=== PATIENT | female | born 1985 | race Caucasian/White ===

== ENCOUNTER 2019-11-03 18:25 | Inpatient (IN) | payer OTHER ==
--- NOTE | 2019-11-03 18:30 | PDOC ---
Rapid Medical Evaluation Time Seen by Provider: 11/03/19 18:27 Medical Evaluation: 11/03/19 18:28 34 y/o F w/PMH of asthma recent exacerbation afebrile 2 duo nebs and decadron in ambulance in ambulance, symptoms increase with cigarette smoking PE: NAD ORDERS: CXR Discharge Disposition - Diagnosis Asthma exacerbation - Discharge Dispostion Condition at time of disposition: Stable - Referrals - Patient Instructions - Post Discharge Activity
[2019-11-03 18:32] VITALS: BMI 29.5
[2019-11-03] MEDS ORDERED: MAGNESIUM SULF 50% (8.12 MEQ/2 ML-1 GM VIAL) IVPB ONE (18:43)
[2019-11-03] MEDS ORDERED: ALBUTEROL SO4 2.5/IPRATROPIUM 0.5 INH SOL 3 ML VIAL.NEB. NEB ONE ×3 (18:43→19:07)
[2019-11-03] MEDS ORDERED: LACTATED RINGERS SOLUTION 1000 ML INFUS.BAG IV ONE (18:53)
[2019-11-03] MEDS ORDERED: ALBUTEROL SO4 0.083% IH SOL 2.5 MG/3 ML VIAL.NEB. NEB ONE ×2 (18:55→19:06)
--- NOTE | 2019-11-03 18:59 | PDOC ---
History of Present Illness - General Chief Complaint: Wheezing Stated Complaint: ASTHMA Time Seen by Provider: 11/03/19 18:27 - History of Present Illness Initial Comments: HPI: 11/03/19 18:58 34 yo F PMH asthma (never intubated, 1 or less exacerbations per year, normally intermittent use of inhaler), smoker (5 cigarettes daily X 5 years), presenting with SOB and wheezing. Received Duoneb X2 and Decadron 10 by EMS. She states t hat she has been feeling worsening SOB over the past 4 days and has been taking her albuterol inhaler every 2 hours without relief. Endorses sensation of palpitations, which she attributes to using her inhaler. States that this is the worst exacerbation she can remember. Further complains of long standing pain behind her knees associated with weakness, L>R, exacerbated by walking uphill, which has been worsening for months. She is on Depo shots (started 3 months ago), has never been . Denies CP, JAMES, N/V, generalized weakness, fevers/chills, constipation/diarrhea, urinary changes. PCP: Dr. Crockett, [address], last saw here 3 years ago ROS: GENERAL/CONSTITUTIONAL: denies fever, chills, diaphoresis, generalized weakness HEAD, EYES, EARS, NOSE AND THROAT: denies rhinorrhea, nasal congestion, throat pain, throat swelling, difficulty swallowing NEUROLOGIC: denies headache, focal weakness, dizziness, unsteady gait, CARDIOVASCULAR: endorses "heart racing". Denies chest pain, syncope, irregular heart rate, lightheadedness, peripheral edema RESPIRATORY: endorses shortness of breath, dyspnea with exertion, and wheezing. Denies cough, orthopneahemoptysis GASTROINTESTINAL: denies abdominal pain, abdominal distension, nausea, vomiting, diarrhea, constipation, melena, hematochezia GENITOURINARY: denies dysuria, frequency, urgency, hematuria MUSCULOSKELETAL: endorses pain behind both knees. Denies myalgia, back pain, neck pain SKIN: denies rash, itching, pallor HEMATOLOGIC/IMMUNOLOGIC: denies easy bleeding, easy bruising, lymphadenopathy, frequent infections ENDOCRINE: denies unexplained weight gain, unexplained weight loss, heat intolerance, cold intolerance PSYCHIATRIC: denies anxiety, depression, suicidal or homicidal ideation, hallucinations PE: Gen: well-developed, well-nourished, appears mildly uncomfortable Neuro: AAOX4, CN II-XII intact, FTN intact, EOMI, PERRLA, 5/5 strength, SILT HEENT: atraumatic, normocephalic Neck: trachea midline, supple CV: tachycardic, regular rhythm, no murmurs, rubs, or gallops Pulm: b/l inspiratory and expiratory wheezing, tight. Satting 92% on RA. Abd: soft, non-distended, non-tender MSK: full ROM, intact pulses Extr: no edema, no deformities. Mild ttp behind b/l knees without palpable fluid collection Skin: warm, dry MDM: Concern for acute asthma exacerbation. Cannot PERC out and so must also consider PE. - CBC, CMP - COVID swab - EKG, CXR - test - Duplex US b/l legs - 2g magnesium - 1L LR - Duoneb - reassess - likely admit for asthma exacerbation 11/03/19 19:17 EKG sinus tachycardia at 110 bpm, AK 112, QRS 82, QTc 446, no ST segment changes. 11/03/19 19:50 WBC 12.9 in setting of receiving Decadron, CBC otherwise unremarkable. 11/03/19 21:31 CXR without acute abnormality. CMP with elevated LFTs, otherwise unremarkable. Patient reassessed, still wheezing, satting 93% on RA, feeling marginally better. Will f/u US, admit. 11/03/19 21:54 US negative for DVT. Will admit. Past History - Medical History Allergies/Adverse Reactions: Allergies Allergy/AdvReac Type Severity Reaction Status Date / Time No Known Allergies Allergy Verified 11/03/19 18:32 Home Medications: Ambulatory Orders Albuterol Sulfate Inhaler - [Ventolin Hfa Inhaler -] 2 inh PO Q6H 11/04/19 Budesonide/Formoterol Fumarate [Budesonide-Formoterol 160-4.5] 2 inh IH BID 11/04/19 Bupropion HCl [Bupropion Xl] 150 mg PO DAILY 11/04/19 Bupropion HCl [Bupropion Xl] 300 mg PO DAILY 11/04/19 Nicotine [Nicotine Patch 21 mg/24 hr] 1 each TD DAILY 11/04/19 Olanzapine 15 mg PO DAILY 11/04/19 - Reproductive History Is Patient Now?: No - Psycho-Social/Smoking History Smoking History: Current every day smoker Have you smoked in the past 12 months: Yes Number of Cigarettes Smoked Daily: 5 Information on smoking cessation initiated: No - Substance Abuse Hx (Audit-C & DAST Scrn) How often the patient has a drink containing alcohol: Never Score: In Men: 4 or > Positive; In Women: 3 or > Positive: 0 Screen Result (Pos requires Nsg. Audit-10AR): Negative In the last yr the pt used illegal drug/Rx for NonMed reason: No Score: Yes response is considered Positive: 0 Screen Result (Positive result requires Nsg. DAST-10): Negative *Physical Exam - Vital Signs Last Vital Signs Temp Pulse Resp BP Pulse Ox 98.8 F 121 H 22 H 113/75 94 L 11/03/19 18:28 11/03/19 18:28 11/03/19 18:28 11/03/19 18:28 11/03/19 18:28 ED Treatment Course - LABORATORY CBC & Chemistry Diagram: 11/04/19 05:51 11/04/19 05:51 - RADIOLOGY Radiology Studies Ordered: Category Date Time Status DUPLEX VASCUL US-2LEGS [US] Stat Ultrasound 11/03/19 18:58 Ordered Discharge - Discharge Information Problems reviewed: Yes Clinical Impression/Diagnosis: Asthma exacerbation Qualifiers: Asthma severity: severe Asthma persistence: persistent Qualified Code(s): J45.51 - Severe persistent asthma with (acute) exacerbation Condition: Fair - Admission Yes - Follow up/Referral - Patient Discharge Instructions - Post Discharge Activity
[2019-11-03] MEDS ORDERED: MAGNESIUM SULFATE IN WATER 2 GM/50 ML IVPB IVPB ONE (19:07)
[2019-11-03 19:27] LABS: BASO % 0.7 % (0-2.0); EOS % 3.6 % (0-4.5); HEMATOCRIT 42.9 % (32.4-45.2); HEMOGLOBIN 14.4 GM/dL (10.7-15.3); LYMPH % 13.9 % (8-40); MCH 29.3 pg (25.7-33.7); MCHC 33.6 g/dl (32.0-36.0); MEAN PLT VOLUME 10.6 fl (7.5-11.1); MONO % 4.5 % (3.8-10.2); NEUT % 77.3 % (42.8-82.8); PLATELET COUNT 188 K/MM3 (134-434); RBC 4.93 M/mm3 (3.60-5.2); RDW 14.8 % (11.6-15.6); WHITE BLOOD COUNT 12.9 K/mm3 (4.0-10.0)
--- NOTE | 2019-11-03 19:45 | PDOC ---
Documentation entered by Raymond Bell SCRIBE, acting as scribe for Kirti Moore DO. Kirti Moore DO: This documentation has been prepared by the Ray duff Angel, SCRIBE, under my direction and personally reviewed by me in its entirety. I confirm that the documentation accurately reflects all work, treatment, procedures, and medical decision making performed by me. Attending Attestation - Resident Resident Name: [email or web address] - ED Attending Attestation I have performed the following: I have examined & evaluated the patient, The case was reviewed & discussed with the resident, I agree w/resident's findings & plan, Exceptions are as noted - HPI HPI: 11/03/19 19:41 The patient is a 34 year old female with a significant past medical history of asthma who presents to the ED via EMS with SOB and wheezing The patient states this isnt her first exacerbation but it is definitely the worst she has experienced. The patient was given 2 Duoneb and Decadron 10 by EMS en route. The patient notes worsening SOB for the last 4 days and has had no relief from her albuterol inhaler which she uses every 2 hours. The patient does note palpitations which she believes is due to her using her inhaler. The patient also notes worsening bilateral knee pain behind her knee for months but has had no work up and notes the pain being worse since COVID due to lack of exercise. The patient denies coughing, nausea, vomiting, fever/chills or chest pain. Social History: Patient smokes 5 cigarettes a day for the past 5 years. 11/03/19 19:41 - Physicial Exam PE: 11/03/19 19:42 gen: aaox3, tachypnic, tachy heart: +s1s2 tachy lungs: tachypnic, conversational dyspnea, wheezing diffusely abd: soft, nt/nd +bs ext: no c/c/e, b/l posterior knee and calf ttp, no swelling, pulses intact - Critical Care Time Total Critical Care Time: 35 Critical Care Statement: The care of this patient involved high complexity decision making to prevent further life threatening deterioration of the patient's condition and/or to evaluate & treat vital organ system(s) failure or risk of failure. - Medical Decision Making 11/03/19 19:43 a/p: 34yo female with hx of asthma requiring hospitalization in the past with wheezing x 4 days and sob -also with leg cramping/pain, on depo and smokes -will send for dvt duplex ultrasound -nebs, steroids - received 2 duonebs [employer] and decadron 10mg -will give mag, nebs, albuterol -will start ivf -covid swab, cxr -will most likely need admission -does not have a immigration paralegal 11/03/19 21:31 cxr clear 11/03/19 21:31 mildly elevated lft, mildly elevated wbc 11/03/19 21:59 no dvt identified pt still with wheezing, will need admission for asthma exacerbation 11/03/19 22:00 microblog sent for admission 11/03/19 22:33 resident discussed the case with emma who accepts pt to service Heart Score/ECG Review - ECG Intrepretation Comment:: 11/03/19 19:45 sinus tach at 110, nl axis, nl interval, no acute st/t wave findings Discharge - Discharge Information Problems reviewed: Yes Clinical Impression/Diagnosis: Asthma exacerbation Condition: Fair - Admission Yes - Follow up/Referral - Patient Discharge Instructions - Post Discharge Activity
[2019-11-03 20:02] LABS: ALBUMIN 3.4 g/dl (3.4-5.0); BILIRUBIN,TOTAL 0.2 mg/dL (0.2-1); BLOOD UREA NITROGEN 15.6 mg/dL (7-18); CALCIUM 8.1 mg/dL (8.5-10.1); CREATININE 0.8 mg/dL (0.55-1.3); POTASSIUM 3.6 mmol/L (3.5-5.1); TOT PROT 6.9 g/dl (6.4-8.2)
--- OUTSIDE RECORDS SUMMARY | 2019-11-03 20:52 | XMS ---
:1985 Author [facility] Care Team Providers Name Role Phone ED STAFF PHYSICIAN, STAFF Unavailable Unavailable Maurice, Aqib Unavailable Unavailable Maurice, Aqib Unavailable Unavailable Maurice, Aqib Unavailable Unavailable ED STAFF PHYSICIAN Unavailable Unavailable CHET PADILLA Unavailable Unavailable Re-disclosure Warning The records that you are about to access may contain information from federally- assisted alcohol or drug abuse programs. If such information is present, then the following federally mandated warning applies: This information has been disclosed to you from records protected by federal confidentiality rules (42 CFR part 2). The federal rules prohibit you from making any further disclosure of this information unless further disclosure is expressly permitted by the written consent of the person to whom it pertains or as otherwise permitted by 42 CFR part 2. A general authorization for the release of medical or other information is NOT sufficient for this purpose. The Federal rules restrict any use of the information to criminally investigate or prosecute any alcohol or drug abuse patient.The records that you are about to access may contain highly sensitive health information, the redisclosure of which is protected by Article 27-F of the [facility] Public Health law. If you continue you may haveaccess to information: Regarding HIV / AIDS; Provided by facilities licensed or operated by the [facility] Office of Mental Health; or Provided by the [facility] Office for People With Developmental Disabilities. If such information is present, then the following [facility] mandated warning applies: This information has been disclosed to you from confidential records which are protected by state law. State law prohibits you from making any further disclosure of this information without the specific written consent of the person to whom it pertains, or as otherwise permitted by law. Any unauthorized further disclosure in violation of state law may result in a fine or prison sentence or both. A general authorization for the release of medical or other information is NOT sufficient authorization for further disclosure. Allergies and Adverse Reactions Type Description Substance Reaction Status Data Source(s ) No Known No Known Allergies No Known eCW3 ( [place] [facility]) No Known No Known Allergies No Known eCW2 ( [place] [facility]) No Known No Known Allergies No known eCW3 ( [place] Allergies allergies [facility] ([facility]) Encounters Encounter Providers Location Date Indications Data Source(s ) Inpatient Attender: Clarice H-HAL6 12/17/2018 [facility] JohnathonyAttender: 02:53:00 PM EST [facility] 12/20/2018 DANIELEGOAttender: 04:40:00 PM EST STAFF ED STAFF PHYSICIANAdmitter: CHET Valentinferjankir: CHET PADILLA Patient discharged. Outpatient [facility] 11/13/2018 eCW3 ([facility] A28 12:00:00 AM EDT [facility] - 11/13/2018 Care) 12:00:00 AM EDT Outpatient [facility] 04/06/2018 eCW3 ([facility] A28 12:00:00 AM EST [facility] - 04/06/2018 Care) 12:00:00 AM EST [facility] 01/07/2018 eCW2 ([facility] 12:00:00 AM EST [facility]) Outpatient 12/31/2017 NETSMART 05:00:00 AM EST [facility] 12/31/2017 [facility] 05:00:00 AM [facility]) [facility] 12/12/2017 eCW2 ([facility] 12:00:00 AM T [facility]) Outpatient 12/04/2017 NETSMART 04:00:00 AM EDT ([facility]) [facility] 12/04/2017 eCW2 ([facility] 12:00:00 AM EDT [facility]) [facility] 12/01/2017 eCW2 ([facility] 12:00:00 AM EDT [facility]) [facility] 11/20/2017 eCW2 ([facility] 12:00:00 AM EDT [facility]) Emergency Attender: ED H 11/14/2017 [facility] STAFF 04:42:00 PM EDT Medical C enter PHYSICIANAdmitte r: ED STAFF PHYSICIAN [facility] 10/21/2017 eCW2 ([facility] 12:00:00 AM EDT [facility]) Outpatient 09/29/2017 NETSMART 04:00:00 AM EDT ([facility] 12/04/2017 [facility] 04:00:00 AM EDT [facility]) [facility] 08/28/2017 eCW2 ([facility] 12:00:00 AM EDT [facility]) [facility] 08/14/2017 eCW2 ([facility] 12:00:00 AM EDT [facility]) [facility] 06/27/2017 eCW2 [facility] 12:00:00 AM EDT [facility]) [facility] 06/20/2017 eCW2 ([facility] 12:00:00 AM EDT [facility]) [facility] 06/17/2017 eCW2 ([facility] 12:00:00 AM EDT [facility]) [facility] 06/17/2017 eCW2 ([facility] 12:00:00 AM EDT [facility]) [facility] 12/31/2016 eCW2 ([facility] 12:00:00 AM EST [facility]) [facility] 09/26/2016 eCW2 ([facility] 12:00:00 AM EDT [facility]) [facility] 09/26/2016 eCW2 ([facility] 12:00:00 AM EDT [facility]) [facility] 05/28/2016 eCW2 ([facility] 12:00:00 AM EDT [facility]) [facility] 02/21/2016 eCW2 ([facility] 12:00:00 AM EST [facility]) [facility] 01/25/2016 eCW2 ([facility] 12:00:00 AM EST [facility]) [facility] 12/29/2015 eCW2 ([facility] 12:00:00 AM EST [facility]) [facility] 11/17/2015 eCW2 ([facility] 12:00:00 AM EDT [facility]) [facility] 08/03/2015 eCW2 ([facility] 12:00:00 AM EDT [facility]) [facility] 08/01/2015 eCW2 ([facility] 12:00:00 AM EDT [facility]) [facility] 07/05/2015 eCW2 ([facility] 12:00:00 AM EDT [facility]) [facility] 07/03/2015 eCW2 ([facility] 12:00:00 AM EDT [facility]) [facility] 07/01/2015 eCW2 ([facility] 12:00:00 AM EDT [facility]) [facility] 06/12/2015 eCW2 ([facility] 12:00:00 AM EDT [facility]) [facility] 06/12/2015 eCW2 ([facility] 12:00:00 AM EDT [facility]) [facility] 05/22/2015 eCW2 ([facility] 12:00:00 AM EDT [facility]) [facility] 04/03/2015 eCW2 ([facility] 12:00:00 AM EST [facility]) [facility] 03/30/2015 eCW2 ([facility] 12:00:00 AM EST [facility]) [facility] 02/01/2015 eCW2 ([facility] 12:00:00 AM EST [facility]) [facility] 01/31/2015 eCW2 ([facility] 12:00:00 AM EST [facility]) [facility] 01/19/2015 eCW2 ([facility] 12:00:00 AM EST [facility]) [facility] 01/12/2015 eCW2 ([facility] 12:00:00 AM EST [facility]) [facility] 10/03/2014 eCW2 ([facility] 12:00:00 AM EDT [facility]) [facility] 08/25/2014 eCW2 ([facility] 12:00:00 AM EDT [facility]) [facility] 05/27/2014 eCW2 ([facility] 12:00:00 AM EDT [facility]) [facility] 12/31/2013 eCW2 ([facility] 12:00:00 AM EST [facility]) [facility] 10/22/2013 eCW2 ([facility] 12:00:00 AM EDT [facility]) [facility] 09/30/2013 eCW2 ([facility] 12:00:00 AM EDT [facility]) [facility] 09/09/2013 eCW2 ([facility] 12:00:00 AM EDT [facility]) [facility] 08/27/2013 eCW2 ([facility] 12:00:00 AM EDT [facility]) [facility] 07/09/2013 eCW2 ([facility] 12:00:00 AM EDT [facility]) [facility] 07/02/2013 eCW2 ([facility] 12:00:00 AM EDT [facility]) [facility] 07/02/2013 eCW2 ([facility] 12:00:00 AM EDT [facility]) [facility] 06/21/2013 eCW2 ([facility] 12:00:00 AM EDT [facility]) [facility] 12/16/2012 eCW2 ([facility] 12:00:00 AM EST [facility]) [facility] 12/15/2012 eCW2 ([facility] 12:00:00 AM EST [facility]) [facility] 11/05/2012 eCW2 ([facility] 12:00:00 AM EDT [facility]) [facility] 10/16/2012 eCW2 ([facility] 12:00:00 AM EDT [facility]) [facility] 10/15/2012 eCW2 ([facility] 12:00:00 AM EDT [facility]) [facility] 10/15/2012 eCW2 ([facility] 12:00:00 AM EDT [facility]) [facility] 10/01/2012 eCW2 ([facility] 12:00:00 AM EDT [facility]) [facility] 09/21/2012 eCW2 ([facility] 12:00:00 AM EDT [facility]) [facility] 09/20/2012 eCW2 ([facility] 12:00:00 AM EDT [facility]) [facility] 09/18/2012 eCW2 ([facility] 12:00:00 AM EDT [facility]) [facility] 08/27/2012 eCW2 ([facility] 12:00:00 AM EDT [facility]) [facility] 06/18/2012 eCW2 ([facility] 12:00:00 AM EDT [facility]) [facility] 05/14/2012 eCW2 ([facility] 12:00:00 AM EDT [facility]) [facility] 04/20/2012 eCW2 ([facility] 12:00:00 AM EDT [facility]) [facility] 03/12/2012 eCW2 ([facility] 12:00:00 AM EST [facility]) [facility] 03/03/2012 eCW2 ([facility] 12:00:00 AM EST [facility]) [facility] 02/21/2012 eCW2 ([facility] 12:00:00 AM EST [facility]) [facility] 02/12/2012 eCW2 ([facility] 12:00:00 AM EST [facility]) [facility] 01/21/2012 eCW2 ([facility] 12:00:00 AM EST [facility]) [facility] 01/17/2012 eCW2 ([facility] 12:00:00 AM EST [facility]) [facility] 01/06/2012 eCW2 ([facility] 12:00:00 AM EST [facility]) [facility] 11/19/2011 eCW2 ([facility] 12:00:00 AM EDT [facility]) [facility] 09/18/2011 eCW2 ([facility] 12:00:00 AM EDT [facility]) [facility] 09/13/2011 eCW2 ([facility] 12:00:00 AM EDT [facility]) [facility] 09/12/2011 eCW2 ([facility] 12:00:00 AM EDT [facility]) [facility] 06/27/2011 eCW2 ([facility] 12:00:00 AM EDT [facility]) [facility] 06/19/2011 eCW2 ([facility] 12:00:00 AM EDT [facility]) [facility] 06/07/2011 eCW2 ([facility] 12:00:00 AM EDT [facility]) [facility] 05/31/2011 eCW2 ([facility] 12:00:00 AM EDT [facility]) [facility] 05/10/2011 eCW2 ([facility] 12:00:00 AM EDT [facility]) [facility] 05/10/2011 eCW2 ([facility] 12:00:00 AM EDT [facility]) [facility] 05/02/2011 eCW2 ([facility] 12:00:00 AM EDT [facility]) [facility] 05/01/2011 eCW2 ([facility] 12:00:00 AM EDT [facility]) [facility] 03/27/2011 eCW2 ([facility] 12:00:00 AM EST [facility]) [facility] 03/22/2011 eCW2 ([facility] 12:00:00 AM EST [facility]) [facility] 01/24/2011 eCW2 ([facility] 12:00:00 AM EST [facility]) [facility] 12/27/2010 eCW2 ([facility] 12:00:00 AM EST [facility]) [facility] 12/03/2010 eCW2 ([facility] 12:00:00 AM EDT [facility]) [facility] 10/25/2010 eCW2 ([facility] 12:00:00 AM EDT [facility]) [facility] 09/03/2010 eCW2 ([facility] 12:00:00 AM EDT [facility]) [facility] 07/16/2010 eCW2 ([facility] 12:00:00 AM EDT [facility]) [facility] 05/31/2010 eCW2 ([facility] 12:00:00 AM EDT [facility]) [facility] 04/03/2010 eCW2 ([facility] 12:00:00 AM EST [facility]) [facility] 03/29/2010 eCW2 ([facility] 12:00:00 AM EST [facility]) [facility] 03/29/2010 eCW2 ([facility] 12:00:00 AM EST [facility]) [facility] 12/27/2009 eCW2 ([facility] 12:00:00 AM EST [facility]) [facility] 12/22/2009 eCW2 ([facility] 12:00:00 AM EST [facility]) [facility] 12/08/2009 eCW2 ([facility] 12:00:00 AM EDT [facility]) [facility] 11/23/2009 eCW2 ([facility] 12:00:00 AM EDT [facility]) [facility] 11/17/2009 eCW2 ([facility] 12:00:00 AM EDT [facility]) [facility] 11/13/2009 eCW2 ([facility] 12:00:00 AM EDT [facility]) [facility] 09/11/2009 eCW2 ([facility] 12:00:00 AM EDT [facility]) [facility] 09/01/2009 eCW2 ([facility] 12:00:00 AM EDT [facility]) [facility] 06/07/2009 eCW2 ([facility] 12:00:00 AM EDT [facility]) [facility] 05/19/2009 eCW2 ([facility] 12:00:00 AM EDT [facility]) [facility] 05/01/2009 eCW2 ([facility] 12:00:00 AM EDT [facility]) [facility] 04/27/2009 eCW2 ([facility] 12:00:00 AM EDT [facility]) [facility] 03/17/2009 eCW2 ([facility] 12:00:00 AM EST [facility]) [facility] 03/09/2009 eCW2 ([facility] 12:00:00 AM EST [facility]) [facility] 12/07/2008 eCW2 ([facility] 12:00:00 AM EDT [facility]) [facility] 09/06/2008 eCW2 ([facility] 12:00:00 AM EDT [facility]) [facility] 06/07/2008 eCW2 ([facility] 12:00:00 AM EDT [facility]) Immunizations Vaccine Date Status Description Data Source(s) MMR 02/25/2019 completed eCW3 ([facility] 11:29:00 AM EST Health Care) pneumococcal 12/19/2018 [facility] polys[facility] PPV23 06:57:00 AM EST Cent er New in 2011. IIV4 11/20/2017 completed eCW3 ([facility] 04:45:00 PM EDT Health Care) New in 2011. IIV4 11/20/2017 completed eCW2 ([facility] 04:45:00 PM EDT Health Care) Hep A-Hep B 07/02/2013 completed eCW3 ([facility] 02:54:00 PM EDT Health Care) Hep A-Hep B 09/18/2012 completed eCW3 ([facility] 03:43:27 PM EDT Health Care) Hep A-Hep B 02/21/2012 completed eCW3 ([facility] 09:21:50 PM EST Health Care) Tdap 03/22/2011 completed eCW3 ([facility] 07:53:58 PM [facility]) pneumococcal 03/22/2011 completed eCW3 ([facility] mahendra polysaccharide PPV23 07:53:52 PM [facility]) IIV3. This is one of two 01/24/2011 completed eCW 3 ([facility] codes replacing CVX 15, 04:02:17 PM EST [facility]) which is being retired. Novel [id number] completed eCW3 ([facility]) Medications Medication Brand Start Product Dose Route Administrative Pharmacy [facility] Indications Reaction Description Data Name Date Form Instructions Instructions Source(s) 24 HR [facility] .0 Oral active NETSMART Bupropion yandel 2020 Table (Mic Hydrochlori XL 04:00: t [facility] adry de 300 MG 00 AM Community Extended EDT Services) Release Oral Tablet [Wellbutrin ] olanzapine OLANZa .0 Oral active NET SMART 15 MG Oral pine 2020 Table ([facility] [address] Tablet 04:00: t er [facility] 00 AM Community EDT Services) 24 HR [facility]bu .0 Oral active NETSMART Bupropion yandel 2020 Table (Mic guzmán Hydrochlori XL 04:00: t er [facility] adry de 150 MG 00 AM Community Extended EDT Services) Release Oral Tablet [Wellbutrin ] olanzapine OLANZa .0 Oral active NET SMART 15 MG Oral pine 2020 Table ([facility] [facility] Tablet 04:00: t er [facility] 00 AM Community EDT Services) 24 HR [facility] .0 Oral active NETSMART Bupropion yandel 2020 Table (Gennaroerin guzmán Hydrochlori XL 04:00: t er [facility] adry de 150 MG 00 AM Community Extended EDT Services) Release Oral Tablet [Wellbutrin ] 24 HR [facility] 1.0 Oral active NETSMART Bupropion yandel 2020 Table (Gennaroerin guzmán Hydrochlori XL 04:00: t er [facility] adry de 300 MG 00 AM Community Extended EDT Services) Release Oral Tablet [Wellbutrin ] 24 HR [facility] 1.0 Oral active NETSMART Bupropion yandel 2020 Table (Gennaroerin ramirez Hydrochlori XL 04:00: t [facility] adry de 300 MG 00 AM Community Extended EDT Services) Release Oral Tablet [Wellbutrin ] 24 HR [facility] 1.0 Oral active NETSMART Bupropion yandel 2019 Table (Mic guzmán Hydrochlori XL 04:00: t er [facility] adry de 150 MG 00 AM Community Extended EDT Services) Release Oral Tablet [Wellbutrin ] olanzapine OLANZa .0 Oral active NET SMART 15 MG Oral pine 2019 Table ([facility] Tablet 04:00: t er [facility] 00 AM Community EDT Services) Albuterol Ipratr 07/27/ 3.0 active Ipratropi um- eCW3 0.833 MG/ML opium- 2020 {ml} Albuterol ( [facility] / [place] 12:00: 0.5-2.5 (3) Rive r Ipratropium rol 00 AM MG/3ML [facility]alt [facility] 0.5-2. EDT Care) 0.167 MG/ML 5 (3) Inhalant MG/3ML Solution Ipratropium -Albuterol 0.5-2.5 (3) MG/3ML Azithromyci Azithr 07/27/ suspend Azithr omycin eCW3 n 250 MG omycin 2020 ed 250 MG ([facility] Oral Tablet 250 MG 12:00: Rive r 00 AM Health EDT Care) 24 HR Nicoti 1.0 active Nicotine eCW3 Nicotine ne 2020 {patc Step 1 21 ([facility] 0.875 MG/HR Step 1 12:00: h_to_ MG/24HR [facility] Transdermal 00 AM skin} Health Patch MG/24H EDT Care) Nicotine R Step 1 21 MG/24HR olanzapine OLANZa .0 Oral active NET SMART 10 MG Oral pine 2019 Table ([facility] Tablet 04:00: t er [facility] 00 AM Community EDT Services) 24 HR [facility] .0 Oral active NETSMART Bupropion yandel 2019 Table (Mic guzmán Hydrochlori XL 04:00: t er [facility] adry de 150 MG 00 AM Community Extended EDT Services) Release Oral Tablet [Wellbutrin ] 24 HR [facility] 1.0 Oral active NETSMART Bupropion yandel 2019 Table (Mic guzmán Hydrochlori XL 04:00: t er [facility] adry de 300 MG 00 AM Community Extended EDT Services) Release Oral Tablet [Wellbutrin ] olanzapine OLANZa 06/01/ 1.0 Oral active NET SMART 10 MG Oral pine 2020 Table ([facility] st Tablet 04:00: t er [facility] 00 AM Community EDT Services) 24 HR Wellbu 1.0 Oral active NETSMART Bupropion yandel 2019 Table (Mic guzmán Hydrochlori XL 04:00: t er [facility] adry de 300 MG 00 AM Community Extended EDT Services) Release Oral Tablet [Wellbutrin ] 24 HR [facility] 1.0 Oral active NETSMART Bupropion yandel 2019 Table (Mic guzmán Hydrochlori XL 04:00: t er [facility]regation adry de 150 MG 00 AM Community Extended EDT Services) Release Oral Tablet [Wellbutrin ] 24 HR [facility] 1.0 Oral active NETSMART Bupropion yandel 2019 Table (Mic guzmán Hydrochlori XL 04:00: t er [facility]regation adry de 300 MG 00 AM Community Extended EDT Services) Release Oral Tablet [Wellbutrin ] 24 HR [facility] 1.0 Oral active NETSMART Bupropion yandel 2019 Table (Mic guzmán Hydrochlori XL 04:00: t er [facility]regation adry de 150 MG 00 AM Community Extended EDT Services) Release Oral Tablet [Wellbutrin ] lamotrigine lamoTR .0 Oral active NE TSMART Igine 2019 Table (Mict 04:00: t er [facility] 00 AM Community EDT Services) 24 HR [facility] 1.0 Oral active NETSMART Bupropion yandel 2019 Table (Mic guzmán Hydrochlori XL 04:00: t er [facility] adry de 150 MG 00 AM Community Extended EDT Services) Release Oral Tablet [Wellbutrin ] 24 HR [facility] 1.0 Oral active NETSMART Bupropion yandel 2019 Table (Mic guzmán Hydrochlori XL 04:00: t er [facility]regation adry de 300 MG 00 AM Community Extended EDT Services) Release Oral Tablet [Wellbutrin ] 24 HR Wellbu 1.0 Oral active NETSMART Bupropion yandel 2019 Table ([facility] Hydrochlori XL 05:00: t er Congregation adry de 300 MG 00 AM Community Extended EST Services) Release Oral Tablet [Wellbutrin ] 24 HR Wellbu 1.0 Oral active NETSMART Bupropion yandel 2018 Table ([facility] Hydrochlori XL 05:00: t er Congregation adry de 300 MG 00 AM Community Extended EST Services) Release Oral Tablet [Wellbutrin ] 24 HR Wellbu 1.0 Oral active NETSMART Bupropion yandel 2019 Table ([facility] Hydrochlori XL 04:00: t er Congregation adry de 300 MG 00 AM Community Extended EDT Services) Release Oral Tablet [Wellbutrin ] Sertraline Sertra 1.0 Oral active NET SMART 50 MG Oral line 2019 Table ([facility] st Tablet 04:00: t er Faith 00 AM Community EDT Services) 11/23/ ORAL active NETSMART 2019 ([facility] 04:00: er Faith 00 AM Community EDT Services) 11/23/ ORAL active NETSMART 2019 ([facility] 04:00: er Faith 00 AM Community EDT Services) 09/21/ ORAL complet NETSMART 2019 ed ([facility] 04:00: er Faith 00 AM Community EDT Services) 09/21/ ORAL complet NETSMART 2019 ed ([facility] 04:00: er Faith 00 AM Community EDT Services) 08/10/ ORAL complet NETSMART 2019 ed ([facility] 04:00: er Faith 00 AM Community EDT Services) 08/10/ ORAL complet NETSMART 2019 ed ([facility] 04:00: er Faith 00 AM Community EDT Services) 06/30/ ORAL complet NETSMART 2019 ed ([facility] 04:00: er Faith 00 AM Community EDT Services) 05/29/ ORAL complet NETSMART 2019 ed ([facility] 04:00: er Faith 00 AM Community EDT Services) Hydroxyzine hydrOX 04/06/ NOT complet N ETSMART Pamoate 25 Yzine 2019 APPLIC ed ([facility] hest MG Oral Pamoat 06:00: ABLE er Jewis h Capsule e 00 AM Community EST Services) 200 ACTUAT Albute 04/06/ NOT active NET SMART Albuterol rol 2019 APPLIC ([facility] st 0.09 06:00: ABLE er Faith MG/ACTUAT 00 AM Community Metered EST Services) Dose Inhaler Cholecalcif Vitami 04/06/ NOT active NE TSMART terra 400 n D 2019 APPLIC ([facility] UNT Oral 06:00: ABLE er Faith Capsule 00 AM Community EST Services) Cyclobenzap Cyclob 04/06/ NOT active NE TSMART rine enzapr 2018 APPLIC ([facility] hydrochlori ine 06:00: ABLE er Congregation adry de 10 MG HCl 00 AM Community Oral Tablet EST Services ) Albuterol Ventol 04/06/ NOT active NETS MART 0.09 in HFA 2019 APPLIC ([facility] MG/ACTUAT 06:00: ABLE er Jewis h Metered 00 AM Community Dose EST Services) Inhaler [Ventolin] 30 ACTUAT Breo 04/06/ 1.0 active Breo Ellipt a eCW3 fluticasone Ellipt 2018 {puff 200-25 (Hu dson furoate 0.2 a 12:00: } MCG/INH Kendra er MG/ACTUAT / 200-25 00 AM Healt h vilanterol MCG/IN EST Care) 0.025 H MG/ACTUAT Dry Powder Inhaler [Breo] Breo Ellipta 200-25 MCG/INH Red Yeast Red 04/06/ active Red Yeast e CW3 Rice 600 MG Yeast 2019 Rice 600 MG ([facility] Rice 12:00: [facility] 600 MG 00 AM Health EST Care) Hydroxyzine HydrOX .0 suspend HydrOX Yzine eCW3 Hydrochlori Yzine 2017 {tabl ed HCl 25 MG ( Fuentes de 25 MG HCl 25 12:00: et_as [facility] Oral Tablet MG 00 AM _need Health HydrOXYzine EDT ed} Care) HCl 25 MG Cyclobenzap Cyclob 11/20/ active 1 table t as eCW2 rine enzapr 2018 needed ([facility]es hydrochlori ine 12:00: [facility] de 10 MG HCl 10 00 AM Health Oral Tablet MG EDT Care) Cyclobenzap rine HCl 10 MG Hydroxyzine HydrOX 11/20/ active 1 table t as eCW2 Hydrochlori Yzine 2018 needed ([facility] de 25 MG HCl 25 12:00: [facility] Oral Tablet MG 00 AM Health HydrOXYzine EDT Care) HCl 25 MG Hydroxyzine HydrOX .0 active HydrOXY zine eCW3 Hydrochlori Yzine 2017 {tabl HCl 25 MG ( Fuentes de 25 MG HCl 25 12:00: et_as [facility] Oral Tablet MG 00 AM _need Health HydrOXYzine EDT ed} Care) HCl 25 MG 120 ACTUAT Symbic 09/26/ 2.0 suspend Symbico rt eCW3 Budesonide ort 2017 {puff ed 160-4.5 ([facility] on 0.16 160-4. 12:00: s} MCG/ACT [facility] MG/ACTUAT / 5 00 AM Health formoterol MCG/AC EDT Care) fumarate T 0.0045 MG/ACTUAT Metered Dose Inhaler [Symbicort] Symbicort 160-4.5 MCG/ACT 120 ACTUAT Symbic 09/26/ 2.0 active Symbicor t eCW3 Budesonide ort 2016 {puff 160-4.5 ([facility] on 0.16 160-4. 12:00: s} MCG/ACT [facility] MG/ACTUAT / 5 00 AM Health formoterol MCG/AC EDT Care) fumarate T 0.0045 MG/ACTUAT Metered Dose Inhaler [Symbicort] Symbicort 160-4.5 MCG/ACT 120 ACTUAT Symbic 09/26/ suspend 2 puffs eCW2 Budesonide ort 2016 ed (Fuentes 0.16 160-4. 12:00: [facility] MG/ACTUAT / 5 00 AM Health formoterol MCG/AC EDT Care) fumarate T 0.0045 MG/ACTUAT Metered Dose Inhaler [Symbicort] Symbicort 160-4.5 MCG/ACT Albuterol Albute 09/26/ active 3 ml eCW2 0.83 MG/ML rol 2016 ([facility] Inhalant Sulfat 12:00: [facility] Solution e (2.5 00 AM Health Albuterol MG/3ML EDT Care) Sulfate ) (2.5 0.083% MG/3ML) 0.083% Ergocalcife VITAMI 24/ 1.0 active VITAMIN D eCW3 rol 72188 N D 2014 {caps (ERGOCALCIFE ( Fuentes UNT Oral (ERGOC 12:00: ule} ROL) 01137 R iver Capsule ALCIFE 00 AM unit Health VITAMIN D ROL) EST Care) (ERGOCALCIF 23178 TERRA) 60975 unit unit Vitamin D UNK 02/02/ active 1 capsule e CW2 53615 unit 2014 ([facility]uentes 12:00: [facility] 00 AM Health EST Care) VITAMIN D UNK 02/02/ 1.0 suspend VITAMIN D eCW3 (ERGOCALCIF 2014 {caps ed (ERGOCALCIFE (Fuentes TERRA) 09528 12:00: ule} ROL) 47202 [facility] unit 00 AM unit Health EST Care) Nebulizer UNK 07/02/ suspend Nebulizer eCW3 2013 ed ([facility]uentes 12:00: [facility] 00 AM Health EDT Care) Nebulizer UNK 07/02/ suspend DX:493.90 eCW2 2013 ed ([facility]uentes 12:00: [facility] 00 AM Health EDT Care) Nebulizer UNK 07/02/ suspend Nebulizer eCW3 2013 ed (Fuentes 12:00: [facility] 00 AM Health EDT Care) 200 ACTUAT Ventol 09/06/ 2.0 active Ventolin HFA eCW3 Albuterol in HFA 2008 {puff 108 (90 (Hud son 0.09 108 12:00: s} Base) [facility] MG/ACTUAT (90 00 AM MCG/ACT Health Metered Base) EDT Care) Dose MCG/AC Inhaler T [Ventolin] Ventolin HFA 108 (90 Base) MCG/ACT 200 ACTUAT Ventol 09/06/ 2.0 active Ventolin HFA eCW3 Albuterol in HFA 2008 {puff 108 (90 (Hud son 0.09 108 12:00: s} Base) [facility] MG/ACTUAT (90 00 AM MCG/ACT Health Metered Base) EDT Care) Dose MCG/AC Inhaler T [Ventolin] Ventolin HFA 108 (90 Base) MCG/ACT 200 ACTUAT Ventol 09/06/ active 2 puffs eCW2 Albuterol in HFA 2008 (Fuentes 0.09 108 12:00: [facility] MG/ACTUAT (90 00 AM Health Metered Base) EDT Care) Dose MCG/AC Inhaler T [Ventolin] Ventolin HFA 108 (90 Base) MCG/ACT 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 A eCW3 A 150 MG/ML 150 MG/ML ([facility]) Cyclobenzap Cyclob 1.0 suspend Cycloben zapr eCW3 rine enzapr {tabl ed ine HCl 10 (Hud[facility] n hydrochlori ine et_as MG [place] de 10 MG HCl 10 _need Health Oral Tablet MG ed} Care) Cyclobenzap rine HCl 10 MG Cyclobenzap Cyclob 1.0 active Cyclobenz apr eCW3 rine enzapr {tabl ine HCl 10 ([facility] n hydrochlori ine et_as MG [facility] de 10 MG HCl 10 _need Health Oral Tablet MG ed} Care) Cyclobenzap rine HCl 10 MG ipratropium 3 mL complet Saint -albuterol ed Sukumar 0.5 mg-3 mg Medical (2.5 mg Center base)/3 mL Solution for Nebulizatio nDirections : 3 mL by inhalation every four hours PRN shortness of breath hydrOXYzine 1 complet Saint HCl 25 mg ed Sukumar TabletDirec Medical tions: 1 Center tablet oral daily at bedtime Doxepin Doxepi suspend 1 capsule at eCW2 Hydrochlori n HCl ed bedtime (Hud son de 50 MG 50 mg [facility] Oral Health Capsule Care) Doxepin HCl 50 mg 24 HR buPROP 1 complet Saint Bupropion ion ed Sukumar Hydrochlori HCl Medical de 300 MG 300 mg Center Extended Tablet Release Extend Oral Tablet ed buPROPion Releas HCl 300 mg e 24 Tablet hr, Extended Ordere Release 24 d By: hr, Ordered Lisa By: Lisa Solomon onDire ctions: 1 ctions tablet oral : 1 daily tablet oral daily 200 ACTUAT albute 2 complet Rusty t Albuterol rol ed Sukumar 0.09 sulfat Medical MG/ACTUAT e 90 Center Metered mcg Dose HFA Inhaler Aeroso albuterol l sulfate 90 Inhale mcg HFA r, Aerosol Ordere Inhaler, d By: Ordered By: Lisa capellanDire ctions: 2 ctions puff by : 2 inhalation puff every six by hours PRN inhala shortness tion of breath every six hours PRN shortn ess of breath Sertraline sertra 1 complet Rusty t 50 MG Oral line ed Sukumar Tablet 50 mg Medical sertraline Tablet Center 50 mg , Tablet, Ordere Ordered By: d By: Lisa Bush ctions: 1 onDire tablet oral ctions daily : 1 tablet oral daily Albuterol Albute 3.0 suspend Albuterol eCW3 0.83 MG/ML rol {ml} ed Sulfate (2.5 ( Fuentes Inhalant Sulfat MG/3ML) [facility] Solution e (2.5 0.083% Health Albuterol MG/3ML Care) Sulfate ) (2.5 0.083% MG/3ML) 0.083% Doxepin Doxepi 1.0 suspend Doxepin HCl eCW3 Hydrochlori n HCl {caps ed 50 mg ([facility] on de 50 MG 50 mg ule_a [facility] Oral t_bed Health Capsule time} Care) Doxepin HCl 50 mg Prednisone predni 2 complet Rusty t 20 MG Oral SONE ed Sukumar Tablet 20 mg Medical predniSONE Tablet Center 20 mg , Tablet, Ordere Ordered By: d By: Lisa Bush ctions: 2 onDire tablet oral ctions daily : 2 tablet oral daily Doxepin Doxepi 1.0 suspend Doxepin HCl eCW3 Hydrochlori n HCl {caps ed 50 mg ([facility] on de 50 MG 50 mg ule_a [facility] Oral t_bed Health Capsule time} Care) Doxepin HCl 50 mg Albuterol Alb[place] 3.0 active Albuterol e CW3 0.83 MG/ML rol {ml} Sulfate (2.5 ( Fuentes Inhalant Sulfat MG/3ML) [facility] Solution e (2.5 0.083% Health Albuterol MG/3ML Care) Sulfate ) (2.5 0.083% MG/3ML) 0.083% Insurance Providers Payer name Policy type Policy ID Covered Covered libertarian's Policy P jorge / Coverage libertarian ID relationship to Merino Inf ormation type merino [facility] [id number] 100 HEALTH NON CAP [facility] [id number] 01 [id number] 100 CARE [facility] [id number] 100 [facility] [id number] 01 [id number] 100 W [id number] "" W [id number] 01 [id number] 100 Problems, Conditions, and Diagnoses Code Display Name Description Problem Type Effective Data Dates Source(s) N92.1 Breakthrough Breakthrough Problem 08/18/2019 eCW3 ([facility] bleeding on bleeding on 12:00:00 AM [facility] Depo-Provera Depo-Provera EDT Care) J45.41 Moderate Moderate Problem 07/28/2019 eCW3 ([facility] persistent asthma persistent asthma 12:00:00 AM [facility] with exacerbation with exacerbation EDT Care) J45.20 Mild intermittent Mild intermittent Problem 07/20/2019 eCW3 (F[facility]es asthma without asthma without 12:00:00 AM [facility] complication complication EDT Care) E55.9 Vitamin D Vitamin D Problem 03/04/2019 eCW3 ([facility] deficiency disease deficiency disease 12:00:00 AM [facility] EST Care) [id number] Specific reading Specific reading Complaint 11/17/2018 NE TSMART disorder disorder 05:05:00 PM ([facility]) [id number] 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 disorder 05:05:00 PM ([facility] impairment of and impairment of [facility] mainly pragmatic mainly pragmatic [facility] language language Services) J45.30 Mild persistent Mild persistent Problem 11/13/2018 eCW3 (Fuentes asthma without asthma without 12:00:00 AM [facility] complication complication EDT Care) 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 Services) E78.2 Mixed Mixed Problem 04/06/2018 eCW3 (Fuentes hyperlipidemia hyperlipidemia 12:00:00 AM [facility] EST Care) J41.0 Smokers' cough Smokers' cough Problem 04/06/2018 eCW3 ( Fuentes 12:00:00 AM [facility] EST Care) E78.2 Mixed Mixed Problem 04/06/2018 eCW3 (Fuentes hyperlipidemia hyperlipidemia 12:00:00 AM [facility] EST Care) J41.0 Smokers' cough Smokers' cough Problem 04/06/2018 eCW3 ( Fuentes 12:00:00 AM [facility] EST Care) G47.00 Insomnia Insomnia Problem 11/20/2017 eCW3 (Fuentes 12:00:00 AM [facility] EDT Care) G47.00 Insomnia Insomnia Problem 11/20/2017 eCW2 (Fuentes 12:00:00 AM [facility] EDT Care) G47.00 Insomnia Insomnia Problem 11/20/2017 eCW3 (Fuentes 12:00:00 AM [facility] EDT Care) [id number] Generalized Generalized Complaint 09/29/2017 NETSMART anxiety disorder anxiety disorder 04:00:00 [facility] 05/11/2018 [facility] 05:35:00 PM Services) EDT F41.9 Anxiety Anxiety Problem 08/21/2017 eCW3 (Fuentes 12:00:00 AM [facility] EDT Care) F32.9 Major depression, Major depressive Problem 08/21/2017 e CW3 (Fuentes single episode disorder, single 12:00:00 AM [facility] episode, EDT Care) unspecified F32.9 Major depression, Major depressive Problem 08/21/2017 e CW2 (Fuentes single episode disorder, single 12:00:00 AM [facility] episode, EDT Care) unspecified F41.9 Anxiety Anxiety Problem 08/21/2017 eCW2 (Fuetnes 12:00:00 AM [facility] EDT Care) F32.9 Major depression, Major depressive Problem 08/21/2017 e CW3 (Fuentes single episode disorder, single 12:00:00 AM [facility] episode, EDT Care) unspecified F41.9 Anxiety Anxiety Problem 08/21/2017 eCW3 (Fuentes 12:00:00 AM [facility] EDT Care) Z71.7 Counseling for HIV Counseling for HIV Problem 8 eCW3 (Fuentes Test Test 12:00:00 AM [facility] EDT Care) R53.83 Fatigue, Fatigue, Problem 06/20/2017 eCW3 (Fuentes unspecified type unspecified type 12:00:00 AM [facility] EDT Care) F43.10 PTSD PTSD Problem 06/20/2017 eCW3 (Fuentes (post-traumatic (post-traumatic 12:00:00 AM [facility] stress disorder) stress disorder) EDT Ca re) F43.10 PTSD PTSD Problem 06/20/2017 eCW2 (Fuentes (post-traumatic (post-traumatic 12:00:00 AM [facility] stress disorder) stress disorder) EDT Ca re) Z71.7 Counseling for HIV Counseling for HIV Problem 8 eCW2 (Fuentes Test Test 12:00:00 AM [facility] EDT Care) R53.83 Fatigue, Fatigue, Problem 06/20/2017 eCW2 (Fuentes unspecified type unspecified type 12:00:00 AM [facility] EDT Care) R53.83 Fatigue, Fatigue, Problem 06/20/2017 eCW3 (Fuentes unspecified type unspecified type 12:00:00 AM [facility] EDT Care) Z71.7 Counseling for HIV Counseling for HIV Problem 8 eCW3 (Fuentes Test Test 12:00:00 AM [facility] EDT Care) F43.10 PTSD PTSD Problem 06/20/2017 eCW3 (Fuentes (post-traumatic (post-traumatic 12:00:00 AM [facility] stress disorder) stress disorder) EDT Ca re) R79.89 Elevated liver Elevated liver Problem 07/03/2015 eCW3 ( Fuentes enzymes level function tests 12:00:00 AM [facility] EDT Care) R79.89 Elevated liver Elevated liver Problem 07/03/2015 eCW2 ( Fuentes enzymes level function tests 12:00:00 AM [facility] EDT Care) R79.89 Elevated liver Elevated liver Problem 07/03/2015 eCW3 ( Fuentes enzymes level function tests 12:00:00 AM [facility] EDT Care) R51 Headache Headache Problem 06/12/2015 eCW3 (Fuentes 12:00:00 AM [facility] EDT Care) H53.8 Blurring of visual Blurred vision Problem 06/12/2015 eC W3 (Fuentes image 12:00:00 AM [facility] EDT Care) Z30.9 Contraception care Contraception Problem 06/12/2015 eCW 3 (Fuentes management management 12:00:00 AM [facility] EDT Care) Z32.00 test Encounter for Problem 06/12/2015 eCW3 (H udson equivocal test, 12:00:00 AM [facility] alth result unknown EDT Care) E55.9 Vitamin D Vitamin D Problem 06/12/2015 eCW2 (Fuentes deficiency deficiency 12:00:00 AM [facility] EDT Care) R51 Headache Headache Problem 06/12/2015 eCW2 (Fuentes 12:00:00 AM [facility] EDT Care) Z32.00 test Encounter for Problem 06/12/2015 eCW2 (H udson equivocal test, 12:00:00 AM [facility] alth result unknown EDT Care) Z30.9 Contraception care Contraception Problem 06/12/2015 eCW 2 (Fuentes management management 12:00:00 AM [facility] EDT Care) H53.8 Blurring of visual Blurred vision Problem 06/12/2015 eC W2 (Fuentes image 12:00:00 AM [facility] EDT Care) Z30.9 Contraception care Contraception Problem 06/12/2015 eCW 3 (Fuentes management management 12:00:00 AM [facility] EDT Care) E55.9 Vitamin D Vitamin D Problem 06/12/2015 eCW3 (Fuentes deficiency deficiency 12:00:00 AM [facility] EDT Care) Z32.00 test Encounter for Problem 06/12/2015 eCW3 (H udson equivocal test, 12:00:00 AM [facility] alth result unknown EDT Care) H53.8 Blurring of visual Blurred vision Problem 06/12/2015 eC W3 (Fuentes image 12:00:00 AM [facility] EDT Care) R51 Headache Headache Problem 06/12/2015 eCW3 (Fuentes 12:00:00 AM [facility] EDT Care) Z00.00 Adult health Annual physical Problem 01/31/2015 eCW3 (H udson examination exam Age 18+ 12:00:00 AM [facility] th EST Care) F17.211 Tobacco user Nicotine Problem 01/31/2015 eCW3 (Fuentes dependence, 12:00:00 AM [facility] cigarettes, in EST Care) remission Z13.9 Screening Encounter for Problem 01/31/2015 eCW3 ([facility] procedure screening, 12:00:00 AM [facility] unspecified EST Care) M54.9 Back pain Back pain Problem 01/31/2015 eCW3 (Fuentes 12:00:00 AM [facility] EST Care) J45.909 Asthma Asthma Problem 01/31/2015 eCW3 (Fuentes 12:00:00 AM [facility] EST Care) F17.211 Tobacco user Nicotine Problem 01/31/2015 eCW2 (Fuentes dependence, 12:00:00 AM [facility] cigarettes, in EST Care) remission M54.9 Back pain Back pain Problem 01/31/2015 eCW2 (Fuentes 12:00:00 AM [facility] EST Care) J45.909 Asthma Asthma Problem 01/31/2015 eCW2 (Fuentes 12:00:00 AM [facility] EST Care) Z00.00 Adult health Annual physical Problem 01/31/2015 eCW2 (H udson examination exam Age 18+ 12:00:00 AM [facility] EST Care) Z13.9 Screening Encounter for Problem 01/31/2015 eCW2 ([facility] n procedure screening, 12:00:00 AM [facility] unspecified EST Care) Z00.00 Adult health Annual physical Problem 01/31/2015 eCW3 (H udson examination exam Age 18+ 12:00:00 AM [facility] EST Care) F17.211 Tobacco user Nicotine Problem 01/31/2015 eCW3 (Fuentes dependence, 12:00:00 AM [facility] cigarettes, in EST Care) remission Z13.9 Screening Encounter for Problem 01/31/2015 eCW3 (H[facility] n procedure screening, 12:00:00 AM [facility] unspecified EST Care) E66.9 Obesity Obesity Problem 01/19/2015 eCW3 (Fuentes 12:00:00 AM [facility] EST Care) Z72.0 Tobacco abuse Tobacco abuse Problem 01/19/2015 eCW3 (Hu dson 12:00:00 AM [facility] EST Care) J45.909 Asthma Asthma Problem 01/19/2015 eCW3 (Fuentes 12:00:00 AM [facility] EST Care) Z72.0 Tobacco abuse Tobacco abuse Problem 01/19/2015 eCW2 (Hu dson 12:00:00 AM [facility] EST Care) J45.909 Asthma Asthma Problem 01/19/2015 eCW2 (Fuentes 12:00:00 AM [facility] EST Care) E66.9 Obesity Obesity Problem 01/19/2015 eCW2 (Fuentes 12:00:00 AM [facility] EST Care) E66.9 Obesity Obesity Problem 01/19/2015 eCW3 (Fuentes 12:00:00 AM [facility] EST Care) J45.909 Asthma Asthma Problem 01/19/2015 eCW3 (Fuentes 12:00:00 AM [facility] EST Care) Z72.0 Tobacco abuse Tobacco abuse Problem 01/19/2015 eCW3 (Hu dson 12:00:00 AM [facility] EST Care) F17.210 Nicotine NICOTINE Diagnosis 12/20/2018 [facility] dependence, DEPENDENCE, 04:40:00 PM Medical cigarettes, CIGARETTES, EST Center uncomplicated UNCOMPLICATED E83.42 Hypomagnesemia HYPOMAGNESEMIA Diagnosis 12/20/2018 [facility] 04:40:00 PM Medical EST Center J45.901 Unspecified asthma UNSPECIFIED ASTHMA Diagnosis 9 [facility] with (acute) WITH (ACUTE) 02:53:00 PM Medical exacerbation EXACERBATION EST Center Surgeries/Procedures Procedure Description Date Indications Data Source(s) IM ADM THRU 18YR ANY RTE 11/20/2017 eCW 2 ([facility] 1ST/ONLY COMPT VAC/TOX 12:00:00 AM EDT [facility] Care) A-Influenza Quadrivalent 11/20/2017 eCW 2 ([facility]/OR CONVEY OF 11/20/2017 eCW2 ([employer] SPEC FOR TR OFFICE TO 12:00:00 AM EDT [facility]) LAB Results ID Date Data Source [id number] 07/28/2019 12:00:00 AM EDT [facility] Name Value Range Interpretation Code Description Data Tracy rce(s) Supporting Document(s ) 2019-nCoV [facility] RNA XXX JAZZY+probe- Imp This lab was ordered by [employer] and reported by [facility]. ID Date Data Source Liver 12/20/2018 05:25:00 AM [facility] [id number] Name Value Range Interpretation Description Data Sup porting Code Source(s) Document(s ) Aspartate 14-36 <content Saint aminotransferase styleCode="Bold"> Mendoza hs [Enzymatic Aspartate Medical activity/volume] Aminotransferase Center in Serum or Plasma (AST) </content>22 IU/L<content styleCode="Italic s"> (14-36 IU/L)</content> Alanine 7-30 Above high <content Saint aminotransferase normal styleCode="Bold"> Mendoza hs [Enzymatic Alanine Medical activity/volume] Aminotransferase Center in Serum or Plasma (ALT) </content>67 IU/L H<content styleCode="Italic s"> (7-30 IU/L)</content> Bilirubin.total 0.2-1.3 Below low <content Saint [Mass/volume] in normal styleCode="Bold"> Mendoza hs Serum or Plasma Bilirubin Total Medical </content>< 0.2 Center MG/DL L<content styleCode="Italic s"> (0.2-1.3 MG/DL)</content> Albumin 3.5-5.0 Below low <content Saint [Mass/volume] in normal styleCode="Bold"> Mendoza hs Serum or Plasma Albumin Medical </content>3.4 Center G/DL L<content styleCode="Italic s"> (3.5-5.0 G/DL)</content> Alkaline 38-126 <content Saint phosphatase styleCode="Bold"> Sukumar [Enzymatic Alkaline Medical activity/volume] Phosphatase (ALP) Cente r in Serum or Plasma </content>108 IU/L<content styleCode="Italic s"> (38-126 IU/L)</content> ID Date Data Source HematologyRou.[id number]- 12/20/2018 05:25:00 AM ADRIAN Durbin [facility] 0500 Name Value Range Interpretation Description Data Sup porting Code Source(s) Document(s ) Leukocytes 4.4-11.0 Above high <content Saint [#/volume] in normal styleCode="Bold Sukumar Blood by ">White Blood Medical Automated count Cell Count Center </content>14.11 KCUMM H<content styleCode="Ital ics"> (4.4-11.0 KCUMM)</content > Erythrocytes 4.0-5.1 <content Saint [#/volume] in styleCode="Bold Sukumar Blood by ">Red Blood Medical Automated count Cell Count Center </content>4.86 MCUMM<content styleCode="Ital ics"> (4.0-5.1 MCUMM)</content > Hemoglobin 12.3-16. <content Saint [Mass/volume] in 0 styleCode="Bold Sukumar Blood ">Hemoglobin Medical </content>13.7 Center G/DL<content styleCode="Ital ics"> (12.3-16.0 G/DL)</content> Hematocrit 36.0-46. <content Saint [Volume 0 styleCode="Bold Sukumar Fraction] of ">Hematocrit Medical Blood by </content>42.6 Center Automated count %<content styleCode="Ital ics"> (36.0-46.0 %)</content> Erythrocyte mean 32.0-37. <content Saint corpuscular 0 styleCode="Bold Sukumar hemoglobin ">Mean Corpus. Medical concentration Hgb Center [Mass/volume] by Concentration Automated count (MCHC) </content>32.2 G/DL<content styleCode="Ital ics"> (32.0-37.0 G/DL)</content> Erythrocyte mean 26.0-34. <content Saint corpuscular 0 styleCode="Bold Sukumar hemoglobin ">Mean Medical [Entitic mass] Corposcular Center by Automated Hemoglobin count </content>28.2 PG<content styleCode="Ital ics"> (26.0-34.0 PG)</content> Erythrocyte mean 80.0-100 <content Saint corpuscular .0 styleCode="Bold Sukumar volume [Entitic ">Mean Medical volume] by Corpuscular Center Automated count Volume </content>87.7 FL<content styleCode="Ital ics"> (80.0-100.0 FL)</content> Erythrocyte 11.5-14. <content [facility] distribution 5 styleCode="Bold Sukumar width [Ratio] by ">Red Cell Medical Automated count Distribution Center Width </content>14.0 %<content styleCode="Ital ics"> (11.5-14.5 %)</content> Neutrophils 36-66 Above high <content [facility] [#/volume] in normal styleCode="Bold Sukumar Blood by ">Neutrophil Medical Automated count </content>88.9 Center % H<content styleCode="Ital ics"> (36-66 %)</content> Platelet mean 8.0-11.0 Above high <content [facility] volume [Entitic normal styleCode="Bold Sukumar volume] in Blood ">Mean Platelet Medical by Automated Volume Center count </content>12.1 FL H<content styleCode="Ital ics"> (8.0-11.0 FL)</content> UNK 1.6-7.3 Above high <content [facility] normal styleCode="Bold Sukumar ">Neutrophil Medical Count Center </content>12.55 KCUMM H<content styleCode="Ital ics"> (1.6-7.3 KCUMM)</content > Lymphocytes 24.0-44. Below low normal <content [facility] [#/volume] in 0 styleCode="Bold Sukumar Blood by ">Lymphocyte Medical Automated count </content>8.1 % Center L<content styleCode="Ital ics"> (24.0-44.0 %)</content> Platelets 130-400 <content [facility] [#/volume] in styleCode="Bold Sukumar Blood by ">Platelet Medical Automated count Count Center </content>244 KCUMM<content styleCode="Ital ics"> (130-400 KCUMM)</content > UNK 0.2-0.9 <content [facility] styleCode="Bold Sukumar ">Monocyte Medical Count Center </content>0.31 KCUMM<content styleCode="Ital ics"> (0.2-0.9 KCUMM)</content > UNK 1.0-4.8 <content [facility] styleCode="Bold Sukumar ">Lymphocyte Medical Count Center </content>1.14 KCUMM<content styleCode="Ital ics"> (1.0-4.8 KCUMM)</content > Eosinophils 0-5.0 <content [facility] [#/volume] in styleCode="Bold Sukumar Blood by ">Eosinophil Medical Automated count </content>0.0 Center %<content styleCode="Ital ics"> (0-5.0 %)</content> Monocytes 3.0-10.0 Below low normal <content [facility] [#/volume] in styleCode="Bold Sukumar Blood by ">Monocyte Medical Automated count </content>2.2 % Center L<content styleCode="Ital ics"> (3.0-10.0 %)</content> Basophils 0.0-1.0 <content [facility] [#/volume] in styleCode="Bold Sukumar Blood by ">Basophil Medical Automated count </content>0.1 Center %<content styleCode="Ital ics"> (0.0-1.0 %)</content> UNK 0.0-0.3 <content [facility] styleCode="Bold Sukumar ">Basophil Medical Count Center </content>0.01 KCUMM<content styleCode="Ital ics"> (0.0-0.3 KCUMM)</content > UNK 0.0-0.6 <content [facility] styleCode="Bold Sukumar ">Eosinophil Medical Count Center </content>0.00 KCUMM<content styleCode="Ital ics"> (0.0-0.6 KCUMM)</content > UNK 0 <content [facility] styleCode="Bold Sukumar ">Nucleated Red Medical Blood Cell Center </content>0.0 /100<content styleCode="Ital ics"> (0 /100)</content> UNK 0-0.1 <content [facility] styleCode="Bold Sukumar ">Immature Medical Granulocyte Center Count </content>0.10 KCUMM<content styleCode="Ital ics"> (0-0.1 KCUMM)</content > UNK 0.0 <content [facility] styleCode="Bold Sukumar ">Nucleated Red Medical Blood Cell Center Count </content>0.00 KCUMM<content styleCode="Ital ics"> (0.0 KCUMM)</content > UNK < 1 <content [facility] styleCode="Bold Sukumar ">Immature Medical Granulocyte Center Ratio </content>0.7 %<content styleCode="Ital ics"> (< 1 %)</content> ID Date Data Source GFR(Creatinine).[id number] 12/20/2018 05:25:00 AM SANDOW [facility] 0-0500 Name Value Range Interpretation Code Description Data Tracy rce(s) Supporting Document(s ) UNK > 60 <content [facility] styleCode="Bold"> Medical Cent er EGFR </content>76 GFR<content styleCode="Italic s"> (> 60 GFR)</content> ID Date Data Source CHMROUTINECCDA.[id number] 12/20/2018 05:25:00 AM EST [facility] Name Value Range Interpretation Description Data Sup porting Code Source(s) Document(s ) Magnesium 1.6-2.3 Below lower panic <content [facility] [Mass/volume] limits styleCode="Saloni Dallass in Serum or d">Magnesium Medical Plasma </content><con Center tent styleCode="Saloni d">1.0 MG/DL LL</content><c ontent styleCode="Jaz lics"> (1.6-2.3 MG/DL)</conten t> UNK 2.3-3.5 <content [facility] styleCode="Saloni Dallass d">Globulin Medical </content>2.9 Center G/DL<content styleCode="Jaz lics"> (2.3-3.5 G/DL)</content > Phosphate 2.5-4.5 Above high normal <content [facility] [Mass/volume] styleCode="Saloni Dallass in Serum or d">Phosphorus Medical Plasma </content>5.1 Center MG/DL H<content styleCode="Jaz lics"> (2.5-4.5 MG/DL)</conten t> Protein 6.3-8.2 <content [facility] [Mass/volume] styleCode="Saloni Dallass in Serum or d">Total Medical Plasma Protein Center </content>6.3 G/DL<content styleCode="Jaz lics"> (6.3-8.2 G/DL)</content > UNK >= 1.0 <content [facility] styleCode="Saloni Dallass d">AG Ratio Medical </content>1.2 Center <content styleCode="Jaz lics"> (>= 1.0 )</content> ID Date Data Source [facility].[id number] 12/20/2018 05:25:00 AM ADRIAN Gant [facility] Name Value Range Interpretation Description Data Sup porting Code Source(s) Document(s ) Potassium 3.5-5.3 <content [facility] [Moles/volume] in styleCode="Bold"> Dann phs Serum or Plasma Potassium Medical </content>4.2 Center MEQ/L<content styleCode="Italic s"> (3.5-5.3 MEQ/L)</content> Sodium 137-145 <content [facility] [Moles/volume] in styleCode="Bold"> Dann phs Serum or Plasma Sodium Medical </content>140 Center MEQ/L<content styleCode="Italic s"> (137-145 MEQ/L)</content> Chloride 98-107 <content [facility] [Moles/volume] in styleCode="Bold"> Dann phs Serum or Plasma Chloride Medical </content>105 Center MEQ/L<content styleCode="Italic s"> (98-107 MEQ/L)</content> Creatinine 0.5-1.3 <content [facility] [Mass/volume] in styleCode="Bold"> [facility] hs Serum or Plasma Creatinine Medical </content>0.9 Center MG/DL<content styleCode="Italic s"> (0.5-1.3 MG/DL)</content> Calcium 8.4-10. <content [facility] [Mass/volume] in 2 styleCode="Bold"> [facility] hs Serum or Plasma Calcium Medical </content>9.2 Center MG/DL<content styleCode="Italic s"> (8.4-10.2 MG/DL)</content> Carbon dioxide, 22-30 <content [facility] total styleCode="Bold"> Sukumar [Moles/volume] in Carbon Dioxide Medical Serum or Plasma </content>26 Center MEQ/L<content styleCode="Italic s"> (22-30 MEQ/L)</content> UNK 7-17 Above high <content [facility] normal styleCode="Bold"> Sukumar BUN </content>22 Medical MG/DL H<content Center styleCode="Italic s"> (7-17 MG/DL)</content> UNK > 60 <content [facility] styleCode="Bold"> Sukumar EGFR </content>76 Medical GFR<content Center styleCode="Italic s"> (> 60 GFR)</content> Glucose 74-106 Above high <content [facility] [Mass/volume] in normal styleCode="Bold"> M[facility]za hs Serum or Plasma Glucose Medical </content>130 Center MG/DL H<content styleCode="Italic s"> (74-106 MG/DL)</content> Alkaline 38-126 <content [facility] phosphatase styleCode="Bold"> [facility] [Enzymatic Alkaline Medical activity/volume] Phosphatase (ALP) Cente r in Serum or Plasma </content>108 IU/L<content styleCode="Italic s"> (38-126 IU/L)</content> Bilirubin.total 0.2-1.3 Below low <content [facility] [Mass/volume] in normal styleCode="Bold"> [facility] hs Serum or Plasma Bilirubin Total Medical </content>< 0.2 Center MG/DL L<content styleCode="Italic s"> (0.2-1.3 MG/DL)</content> Alanine 7-30 Above high <content [facility] aminotransferase normal styleCode="Bold"> [facility] hs [Enzymatic Alanine Medical activity/volume] Aminotransferase Center in Serum or Plasma (ALT) </content>67 IU/L H<content styleCode="Italic s"> (7-30 IU/L)</content> Aspartate 14-36 <content [facility] aminotransferase styleCode="Bold"> [facility] hs [Enzymatic Aspartate Medical activity/volume] Aminotransferase Center in Serum or Plasma (AST) </content>22 IU/L<content styleCode="Italic s"> (14-36 IU/L)</content> Albumin 3.5-5.0 Below low <content [facility] [Mass/volume] in normal styleCode="Bold"> [facility] hs Serum or Plasma Albumin Medical </content>3.4 Center G/DL L<content styleCode="Italic s"> (3.5-5.0 G/DL)</content> ID Date Data Source Liver 12/19/2018 05:52:00 AM EST [facility] Profile.[id number] Name Value Range Interpretation Description Data Sup porting Code Source(s) Document(s ) Alanine 7-30 Above high <content [facility] aminotransferase normal styleCode="Bold"> [facility] hs [Enzymatic Alanine Medical activity/volume] Aminotransferase Center in Serum or Plasma (ALT) </content>94 IU/L H<content styleCode="Italic s"> (7-30 IU/L)</content> Aspartate 14-36 <content [facility] aminotransferase styleCode="Bold"> [facility] hs [Enzymatic Aspartate Medical activity/volume] Aminotransferase Center in Serum or Plasma (AST) </content>32 IU/L<content styleCode="Italic s"> (14-36 IU/L)</content> Bilirubin.total 0.2-1.3 <content [facility] [Mass/volume] in styleCode="Bold"> [facility] hs Serum or Plasma Bilirubin Total Medical </content>0.2 Center MG/DL<content styleCode="Italic s"> (0.2-1.3 MG/DL)</content> Alkaline 38-126 Above high <content [facility] phosphatase normal styleCode="Bold"> Sukumar [Enzymatic Alkaline Medical activity/volume] Phosphatase (ALP) Cente r in Serum or Plasma </content>130 IU/L H<content styleCode="Italic s"> (38-126 IU/L)</content> Albumin 3.5-5.0 <content [facility] [Mass/volume] in styleCode="Bold"> M[facility]za hs Serum or Plasma Albumin Medical </content>3.5 Center G/DL<content styleCode="Italic s"> (3.5-5.0 G/DL)</content> ID Date Data Source HematologyRou.[id number] 12/19/2018 05:52:00 AM ADRIAN Durbin [facility] 0500 Name Value Range Interpretation Description Data Sup porting Code Source(s) Document(s ) Leukocytes 4.4-11.0 Above high <content [facility] [#/volume] in normal styleCode="Bold Sukumar Blood by ">White Blood Medical Automated count Cell Count Center </content>17.48 KCUMM H<content styleCode="Ital ics"> (4.4-11.0 KCUMM)</content > Erythrocytes 4.0-5.1 <content [facility] [#/volume] in styleCode="Bold Sukumar Blood by ">Red Blood Medical Automated count Cell Count Center </content>4.70 MCUMM<content styleCode="Ital ics"> (4.0-5.1 MCUMM)</content > Hematocrit 36.0-46. <content [facility] [Volume 0 styleCode="Bold Sukumar Fraction] of ">Hematocrit Medical Blood by </content>41.1 Center Automated count %<content styleCode="Ital ics"> (36.0-46.0 %)</content> Hemoglobin 12.3-16. <content [facility] [Mass/volume] in 0 styleCode="Bold Sukumar Blood ">Hemoglobin Medical </content>13.5 Center G/DL<content styleCode="Ital ics"> (12.3-16.0 G/DL)</content> Erythrocyte 11.5-14. <content [facility] distribution 5 styleCode="Bold Sukumar width [Ratio] by ">Red Cell Medical Automated count Distribution Center Width </content>14.0 %<content styleCode="Ital ics"> (11.5-14.5 %)</content> Erythrocyte mean 26.0-34. <content [facility] corpuscular 0 styleCode="Bold Sukumar hemoglobin ">Mean Medical [Entitic mass] Corposcular Center by Automated Hemoglobin count </content>28.7 PG<content styleCode="Ital ics"> (26.0-34.0 PG)</content> Erythrocyte mean 32.0-37. <content [facility] corpuscular 0 styleCode="Bold Sukumar hemoglobin ">Mean Corpus. Medical concentration Hgb Center [Mass/volume] by Concentration Automated count (MCHC) </content>32.8 G/DL<content styleCode="Ital ics"> (32.0-37.0 G/DL)</content> Erythrocyte mean 80.0-100 <content [facility] corpuscular .0 styleCode="Bold Sukumar volume [Entitic ">Mean Medical volume] by Corpuscular Center Automated count Volume </content>87.4 FL<content styleCode="Ital ics"> (80.0-100.0 FL)</content> Neutrophils 36-66 Above high <content [facility] [#/volume] in normal styleCode="Bold Sukumar Blood by ">Neutrophil Medical Automated count </content>91.2 Center % H<content styleCode="Ital ics"> (36-66 %)</content> Platelet mean 8.0-11.0 Above high <content [facility] volume [Entitic normal styleCode="Bold Sukumar volume] in Blood ">Mean Platelet Medical by Automated Volume Center count </content>12.4 FL H<content styleCode="Ital ics"> (8.0-11.0 FL)</content> Platelets 130-400 <content [facility] [#/volume] in styleCode="Bold Sukumar Blood by ">Platelet Medical Automated count Count Center </content>227 KCUMM<content styleCode="Ital ics"> (130-400 KCUMM)</content > Lymphocytes 24.0-44. Below low normal <content [facility] [#/volume] in 0 styleCode="Bold Sukumar Blood by ">Lymphocyte Medical Automated count </content>6.1 % Center L<content styleCode="Ital ics"> (24.0-44.0 %)</content> UNK 1.6-7.3 Above high <content [facility] normal styleCode="Bold Sukumar ">Neutrophil Medical Count Center </content>15.95 KCUMM H<content styleCode="Ital ics"> (1.6-7.3 KCUMM)</content > Monocytes 3.0-10.0 Below low normal <content [facility] [#/volume] in styleCode="Bold Sukumar Blood by ">Monocyte Medical Automated count </content>2.1 % Center L<content styleCode="Ital ics"> (3.0-10.0 %)</content> Eosinophils 0-5.0 <content [facility] [#/volume] in styleCode="Bold Sukumar Blood by ">Eosinophil Medical Automated count </content>0.0 Center %<content styleCode="Ital ics"> (0-5.0 %)</content> UNK 1.0-4.8 <content [facility] styleCode="Bold Sukumar ">Lymphocyte Medical Count Center </content>1.07 KCUMM<content styleCode="Ital ics"> (1.0-4.8 KCUMM)</content > UNK 0.2-0.9 <content [facility] styleCode="Bold Sukumar ">Monocyte Medical Count Center </content>0.37 KCUMM<content styleCode="Ital ics"> (0.2-0.9 KCUMM)</content > UNK 0.0-0.3 <content [facility] styleCode="Bold Sukumar ">Basophil Medical Count Center </content>0.01 KCUMM<content styleCode="Ital ics"> (0.0-0.3 KCUMM)</content > UNK 0.0-0.6 <content [facility] styleCode="Bold Sukumar ">Eosinophil Medical Count Center </content>0.00 KCUMM<content styleCode="Ital ics"> (0.0-0.6 KCUMM)</content > Basophils 0.0-1.0 <content [facility] [#/volume] in styleCode="Bold Sukumar Blood by ">Basophil Medical Automated count </content>0.1 Center %<content styleCode="Ital ics"> (0.0-1.0 %)</content> UNK 0 <content [facility] styleCode="Bold Sukumar ">Nucleated Red Medical Blood Cell Center </content>0.0 /100<content styleCode="Ital ics"> (0 /100)</content> UNK 0-0.1 <content [facility] styleCode="Bold Sukumar ">Immature Medical Granulocyte Center Count </content>0.08 KCUMM<content styleCode="Ital ics"> (0-0.1 KCUMM)</content > UNK 0.0 <content [facility] styleCode="Bold Sukumar ">Nucleated Red Medical Blood Cell Center Count </content>0.00 KCUMM<content styleCode="Ital ics"> (0.0 KCUMM)</content > UNK < 1 <content [facility] styleCode="Bold Sukumar ">Immature Medical Granulocyte Center Ratio </content>0.5 %<content styleCode="Ital ics"> (< 1 %)</content> ID Date Data Source GFR(Creatinine).[id number] 12/19/2018 05:52:00 AM EST [facility] 0-0500 Name Value Range Interpretation Code Description Data Tracy rce(s) Supporting Document(s ) UNK > 60 <content [facility] styleCode="Bold"> Medical Cent er EGFR </content>87 GFR<content styleCode="Italic s"> (> 60 GFR)</content> ID Date Data Source [id number] 12/19/2018 05:52:00 AM ADRIAN [facility] -0500 Name Value Range Interpretation Description Data Sup porting Code Source(s) Document(s ) UNK 2.3-3.5 <content [facility] styleCode="Saloni Sukumar d">Globulin Medical </content>3.1 Center G/DL<content styleCode="Jaz lics"> (2.3-3.5 G/DL)</content > UNK >= 1.0 <content [facility] styleCode="Saloni Sukumar d">AG Ratio Medical </content>1.1 Center <content styleCode="Jaz lics"> (>= 1.0 )</content> Magnesium 1.6-2.3 Below low normal <content [facility] [Mass/volume] styleCode="Saloni Sukumar in Serum or d">Magnesium Medical Plasma </content>1.1 Center MG/DL L<content styleCode="Jaz lics"> (1.6-2.3 MG/DL)</conten t> Protein 6.3-8.2 <content [facility] [Mass/volume] styleCode="Saloni Sukumar in Serum or d">Total Medical Plasma Protein Center </content>6.6 G/DL<content styleCode="Jaz lics"> (6.3-8.2 G/DL)</content > Phosphate 2.5-4.5 Above high normal <content [facility] [Mass/volume] styleCode="Saloni Sukumar in Serum or d">Phosphorus Medical Plasma </content>4.7 Center MG/DL H<content styleCode="Jaz lics"> (2.5-4.5 MG/DL)</conten t> ID Date Data Source [facility].[id number] 12/19/2018 05:52:00 AM EST [facility] Name Value Range Interpretation Description Data Sup porting Code Source(s) Document(s ) Carbon dioxide, 22-30 <content [facility] total styleCode="Bold"> Sukumar [Moles/volume] in Carbon Dioxide Medical Serum or Plasma </content>25 Center MEQ/L<content styleCode="Italic s"> (22-30 MEQ/L)</content> Sodium 137-145 <content [facility] [Moles/volume] in styleCode="Bold"> Dann phs Serum or Plasma Sodium Medical </content>141 Center MEQ/L<content styleCode="Italic s"> (137-145 MEQ/L)</content> Potassium 3.5-5.3 <content [facility] [Moles/volume] in styleCode="Bold"> Dann phs Serum or Plasma Potassium Medical </content>3.9 Center MEQ/L<content styleCode="Italic s"> (3.5-5.3 MEQ/L)</content> Chloride 98-107 <content [facility] [Moles/volume] in styleCode="Bold"> Dann phs Serum or Plasma Chloride Medical </content>107 Center MEQ/L<content styleCode="Italic s"> (98-107 MEQ/L)</content> Calcium 8.4-10. <content [facility] [Mass/volume] in 2 styleCode="Bold"> [facility] hs Serum or Plasma Calcium Medical </content>9.3 Center MG/DL<content styleCode="Italic s"> (8.4-10.2 MG/DL)</content> UNK 7-17 Above high <content [facility] normal styleCode="Bold"> Sukumar BUN </content>21 Medical MG/DL H<content Center styleCode="Italic s"> (7-17 MG/DL)</content> Glucose 74-106 Above high <content [facility] [Mass/volume] in normal styleCode="Bold"> [facility]za hs Serum or Plasma Glucose Medical </content>134 Center MG/DL H<content styleCode="Italic s"> (74-106 MG/DL)</content> UNK > 60 <content [facility] styleCode="Bold"> Sukumar EGFR </content>87 Medical GFR<content Center styleCode="Italic s"> (> 60 GFR)</content> Creatinine 0.5-1.3 <content [facility] [Mass/volume] in styleCode="Bold"> M[facility]za hs Serum or Plasma Creatinine Medical </content>0.8 Center MG/DL<content styleCode="Italic s"> (0.5-1.3 MG/DL)</content> Aspartate 14-36 <content [facility] aminotransferase styleCode="Bold"> [facility] hs [Enzymatic Aspartate Medical activity/volume] Aminotransferase Center in Serum or Plasma (AST) </content>32 IU/L<content styleCode="Italic s"> (14-36 IU/L)</content> Bilirubin.total 0.2-1.3 <content [facility] [Mass/volume] in styleCode="Bold"> Mendoza hs Serum or Plasma Bilirubin Total Medical </content>0.2 Center MG/DL<content styleCode="Italic s"> (0.2-1.3 MG/DL)</content> Alkaline 38-126 Above high <content [facility] phosphatase normal styleCode="Bold"> [facility] [Enzymatic Alkaline Medical activity/volume] Phosphatase (ALP) Cente r in Serum or Plasma </content>130 IU/L H<content styleCode="Italic s"> (38-126 IU/L)</content> Albumin 3.5-5.0 <content [facility] [Mass/volume] in styleCode="Bold"> Mendoza hs Serum or Plasma Albumin Medical </content>3.5 Center G/DL<content styleCode="Italic s"> (3.5-5.0 G/DL)</content> Alanine 7-30 Above high <content [facility] aminotransferase normal styleCode="Bold"> [facility] hs [Enzymatic Alanine Medical activity/volume] Aminotransferase Center in Serum or Plasma (ALT) </content>94 IU/L H<content styleCode="Italic s"> (7-30 IU/L)</content> ID Date Data Source Liver 12/18/2018 06:25:00 AM EST [facility] Profile.[id number] Name Value Range Interpretation Description Data Sup porting Code Source(s) Document(s ) Alkaline 38-126 Above high <content [facility] phosphatase normal styleCode="Bold"> [facility] [Enzymatic Alkaline Medical activity/volume] Phosphatase (ALP) Cente r in Serum or Plasma </content>168 IU/L H<content styleCode="Italic s"> (38-126 IU/L)</content> Aspartate 14-36 Above high <content [facility] aminotransferase normal styleCode="Bold"> [facility] hs [Enzymatic Aspartate Medical activity/volume] Aminotransferase Center in Serum or Plasma (AST) </content>57 IU/L H<content styleCode="Italic s"> (14-36 IU/L)</content> Alanine 7-30 Above high <content [facility] aminotransferase normal styleCode="Bold"> [facility] hs [Enzymatic Alanine Medical activity/volume] Aminotransferase Center in Serum or Plasma (ALT) </content>129 IU/L H<content styleCode="Italic s"> (7-30 IU/L)</content> Bilirubin.total 0.2-1.3 <content [facility] [Mass/volume] in styleCode="Bold"> Mendoza hs Serum or Plasma Bilirubin Total Medical </content>0.3 Center MG/DL<content styleCode="Italic s"> (0.2-1.3 MG/DL)</content> Albumin 3.5-5.0 <content [facility] [Mass/volume] in styleCode="Bold"> Mendoza hs Serum or Plasma Albumin Medical </content>4.0 Center G/DL<content styleCode="Italic s"> (3.5-5.0 G/DL)</content> ID Date Data Source HematologyRou.[id number] 12/18/2018 06:25:00 AM ADRIAN Durbin [facility] 0500 Name Value Range Interpretation Description Data Sup porting Code Source(s) Document(s ) Leukocytes 4.4-11.0 <content [facility] [#/volume] in styleCode="Bold [facility] Blood by ">White Blood Medical Automated count Cell Count Center </content>9.02 KCUMM<content styleCode="Ital ics"> (4.4-11.0 KCUMM)</content > Hemoglobin 12.3-16. <content [facility] [Mass/volume] in 0 styleCode="Bold Sukumar Blood ">Hemoglobin Medical </content>14.6 Center G/DL<content styleCode="Ital ics"> (12.3-16.0 G/DL)</content> Erythrocytes 4.0-5.1 Above high <content [facility] [#/volume] in normal styleCode="Bold Sukumar Blood by ">Red Blood Medical Automated count Cell Count Center </content>5.11 MCUMM H<content styleCode="Ital ics"> (4.0-5.1 MCUMM)</content > Erythrocyte mean 32.0-37. <content [facility] corpuscular 0 styleCode="Bold Sukumar hemoglobin ">Mean Corpus. Medical concentration Hgb Center [Mass/volume] by Concentration Automated count (MCHC) </content>33.6 G/DL<content styleCode="Ital ics"> (32.0-37.0 G/DL)</content> Erythrocyte mean 80.0-100 <content [facility] corpuscular .0 styleCode="Bold Sukumar volume [Entitic ">Mean Medical volume] by Corpuscular Center Automated count Volume </content>84.9 FL<content styleCode="Ital ics"> (80.0-100.0 FL)</content> Erythrocyte mean 26.0-34. <content [facility] corpuscular 0 styleCode="Bold Sukumar hemoglobin ">Mean Medical [Entitic mass] Corposcular Center by Automated Hemoglobin count </content>28.6 PG<content styleCode="Ital ics"> (26.0-34.0 PG)</content> Hematocrit 36.0-46. <content [facility] [Volume 0 styleCode="Bold Sukumar Fraction] of ">Hematocrit Medical Blood by </content>43.4 Center Automated count %<content styleCode="Ital ics"> (36.0-46.0 %)</content> Platelets 130-400 <content [facility] [#/volume] in styleCode="Bold Sukumar Blood by ">Platelet Medical Automated count Count Center </content>213 KCUMM<content styleCode="Ital ics"> (130-400 KCUMM)</content > Erythrocyte 11.5-14. <content [facility] distribution 5 styleCode="Bold Sukumar width [Ratio] by ">Red Cell Medical Automated count Distribution Center Width </content>13.9 %<content styleCode="Ital ics"> (11.5-14.5 %)</content> Neutrophils 36-66 Above high <content [facility] [#/volume] in normal styleCode="Bold Sukumar Blood by ">Neutrophil Medical Automated count </content>89.6 Center % H<content styleCode="Ital ics"> (36-66 %)</content> Platelet mean 8.0-11.0 Above high <content [facility] volume [Entitic normal styleCode="Bold Sukumar volume] in Blood ">Mean Platelet Medical by Automated Volume Center count </content>12.2 FL H<content styleCode="Ital ics"> (8.0-11.0 FL)</content> UNK 1.6-7.3 Above high <content [facility] normal styleCode="Bold Sukumar ">Neutrophil Medical Count Center </content>8.08 KCUMM H<content styleCode="Ital ics"> (1.6-7.3 KCUMM)</content > UNK 0.2-0.9 <content [facility] styleCode="Bold Sukumar ">Monocyte Medical Count Center </content>0.24 KCUMM<content styleCode="Ital ics"> (0.2-0.9 KCUMM)</content > UNK 1.0-4.8 Below low normal <content [facility] styleCode="Bold Sukumar ">Lymphocyte Medical Count Center </content>0.65 KCUMM L<content styleCode="Ital ics"> (1.0-4.8 KCUMM)</content > Lymphocytes 24.0-44. Below low normal <content [facility] [#/volume] in 0 styleCode="Bold Sukumar Blood by ">Lymphocyte Medical Automated count </content>7.2 % Center L<content styleCode="Ital ics"> (24.0-44.0 %)</content> Monocytes 3.0-10.0 Below low normal <content [facility] [#/volume] in styleCode="Bold Sukumar Blood by ">Monocyte Medical Automated count </content>2.7 % Center L<content styleCode="Ital ics"> (3.0-10.0 %)</content> Basophils 0.0-1.0 <content [facility] [#/volume] in styleCode="Bold Sukumar Blood by ">Basophil Medical Automated count </content>0.1 Center %<content styleCode="Ital ics"> (0.0-1.0 %)</content> UNK 0.0-0.3 <content [facility] styleCode="Bold Sukumar ">Basophil Medical Count Center </content>0.01 KCUMM<content styleCode="Ital ics"> (0.0-0.3 KCUMM)</content > UNK 0.0-0.6 <content [facility] styleCode="Bold Sukumar ">Eosinophil Medical Count Center </content>0.00 KCUMM<content styleCode="Ital ics"> (0.0-0.6 KCUMM)</content > Eosinophils 0-5.0 <content [facility] [#/volume] in styleCode="Bold Sukumar Blood by ">Eosinophil Medical Automated count </content>0.0 Center %<content styleCode="Ital ics"> (0-5.0 %)</content> UNK 0 <content [facility] styleCode="Bold Sukumar ">Nucleated Red Medical Blood Cell Center </content>0.0 /100<content styleCode="Ital ics"> (0 /100)</content> UNK < 1 <content [facility] styleCode="Bold Sukumar ">Immature Medical Granulocyte Center Ratio </content>0.4 %<content styleCode="Ital ics"> (< 1 %)</content> UNK 0.0 <content [facility] styleCode="Bold Sukumar ">Nucleated Red Medical Blood Cell Center Count </content>0.00 KCUMM<content styleCode="Ital ics"> (0.0 KCUMM)</content > UNK 0-0.1 <content [facility] styleCode="Bold Sukumar ">Immature Medical Granulocyte Center Count </content>0.04 KCUMM<content styleCode="Ital ics"> (0-0.1 KCUMM)</content > ID Date Data Source GFR(Creatinine).[id number] 12/18/2018 06:25:00 AM ADRIAN [facility] 0-0500 Name Value Range Interpretation Code Description Data Tracy rce(s) Supporting Document(s ) UNK > 60 <content [facility] styleCode="Bold"> Medical Cent er EGFR </content>121 GFR<content styleCode="Italic s"> (> 60 GFR)</content> ID Date Data Source BRISSAOUTINECCDA.[id number] 12/18/2018 06:25:00 AM ADRIAN [facility] -0500 Name Value Range Interpretation Description Data Sup porting Code Source(s) Document(s ) UNK >= 1.0 <content [facility] styleCode="Saloni Sukumar d">AG Ratio Medical </content>1.2 Center <content styleCode="Jaz lics"> (>= 1.0 )</content> UNK 2.3-3.5 <content [facility] styleCode="Saloni Sukumar d">Globulin Medical </content>3.2 Center G/DL<content styleCode="Jaz lics"> (2.3-3.5 G/DL)</content > Protein 6.3-8.2 <content [facility] [Mass/volume] styleCode="Saloni Sukumar in Serum or d">Total Medical Plasma Protein Center </content>7.2 G/DL<content styleCode="Jaz lics"> (6.3-8.2 G/DL)</content > Phosphate 2.5-4.5 <content [facility] [Mass/volume] styleCode="Saloni Sukumar in Serum or d">Phosphorus Medical Plasma </content>3.4 Center MG/DL<content styleCode="Jaz lics"> (2.5-4.5 MG/DL)</conten t> Magnesium 1.6-2.3 Below low normal <content [facility] [Mass/volume] styleCode="Saloni Sukumar in Serum or d">Magnesium Medical Plasma </content>1.3 Center MG/DL L<content styleCode="Jaz lics"> (1.6-2.3 MG/DL)</conten t> ID Date Data Source [facility].[id number] 12/18/2018 06:25:00 AM EST [facility] Name Value Range Interpretation Description Data Sup porting Code Source(s) Document(s ) Sodium 137-145 <content [facility] [Moles/volume] in styleCode="Bold"> Dann phs Serum or Plasma Sodium Medical </content>138 Center MEQ/L<content styleCode="Italic s"> (137-145 MEQ/L)</content> Potassium 3.5-5.3 <content [facility] [Moles/volume] in styleCode="Bold"> Dann phs Serum or Plasma Potassium Medical </content>4.3 Center MEQ/L<content styleCode="Italic s"> (3.5-5.3 MEQ/L)</content> Carbon dioxide, 22-30 <content [facility] total styleCode="Bold"> Sukumar [Moles/volume] in Carbon Dioxide Medical Serum or Plasma </content>27 Center MEQ/L<content styleCode="Italic s"> (22-30 MEQ/L)</content> Chloride 98-107 <content [facility] [Moles/volume] in styleCode="Bold"> Dann phs Serum or Plasma Chloride Medical </content>104 Center MEQ/L<content styleCode="Italic s"> (98-107 MEQ/L)</content> UNK 7-17 <content [facility] styleCode="Bold"> Sukumar BUN </content>14 Medical MG/DL<content Center styleCode="Italic s"> (7-17 MG/DL)</content> Glucose 74-106 Above high <content [facility] [Mass/volume] in normal styleCode="Bold"> Mendoza hs Serum or Plasma Glucose Medical </content>141 Center MG/DL H<content styleCode="Italic s"> (74-106 MG/DL)</content> UNK > 60 <content [facility] styleCode="Bold"> Sukumar EGFR Medical </content>121 Center GFR<content styleCode="Italic s"> (> 60 GFR)</content> Creatinine 0.5-1.3 <content [facility] [Mass/volume] in styleCode="Bold"> M[facility]za hs Serum or Plasma Creatinine Medical </content>0.6 Center MG/DL<content styleCode="Italic s"> (0.5-1.3 MG/DL)</content> Calcium 8.4-10. <content [facility] [Mass/volume] in 2 styleCode="Bold"> Mendoza hs Serum or Plasma Calcium Medical </content>9.8 Center MG/DL<content styleCode="Italic s"> (8.4-10.2 MG/DL)</content> Bilirubin.total 0.2-1.3 <content [facility] [Mass/volume] in styleCode="Bold"> Mendoza hs Serum or Plasma Bilirubin Total Medical </content>0.3 Center MG/DL<content styleCode="Italic s"> (0.2-1.3 MG/DL)</content> Aspartate 14-36 Above high <content [facility] aminotransferase normal styleCode="Bold"> M[facility]za hs [Enzymatic Aspartate Medical activity/volume] Aminotransferase Center in Serum or Plasma (AST) </content>57 IU/L H<content styleCode="Italic s"> (14-36 IU/L)</content> Alanine 7-30 Above high <content [facility] aminotransferase normal styleCode="Bold"> [facility] hs [Enzymatic Alanine Medical activity/volume] Aminotransferase Center in Serum or Plasma (ALT) </content>129 IU/L H<content styleCode="Italic s"> (7-30 IU/L)</content> Alkaline 38-126 Above high <content [facility] phosphatase normal styleCode="Bold"> Sukumar [Enzymatic Alkaline Medical activity/volume] Phosphatase (ALP) Cente r in Serum or Plasma </content>168 IU/L H<content styleCode="Italic s"> (38-126 IU/L)</content> Albumin 3.5-5.0 <content [facility] [Mass/volume] in styleCode="Bold"> M[facility]za hs Serum or Plasma Albumin Medical </content>4.0 Center G/DL<content styleCode="Italic s"> (3.5-5.0 G/DL)</content> ID Date Data Source Urinalysis.[id number] 12/17/2018 08:18:00 PM ADRIAN [facility] 0 Name Value Range Interpretation Description Data Sup porting Code Source(s) Document(s ) Color of Urine YELLOW <content [facility] styleCode="[facility] d">Color, Medical Urine Center </content>RED <content styleCode="Jaz lics"> (YELLOW )</content> UNK CLEAR <content [facility] styleCode="[facility] d">Urine Medical Clarity Center </content>ANDRY R <content styleCode="Jaz lics"> (CLEAR )</content> Ketones NEGATIVE <content [facility] [Mass/volume] styleCode="Saloni Patino in Urine by d">Urine Medical Test strip Ketone Center </content>15 MG/DL<content styleCode="Jaz lics"> (NEGATIVE MG/DL)</conten t> Glucose NEGATIVE <content [facility] [Mass/volume] styleCode="Saloni Dallass in Urine by d">Urine Medical Test strip Glucose Center </content>250 MG/DL<content styleCode="Jaz lics"> (NEGATIVE MG/DL)</conten t> UNK NEGATIVE <content [facility] styleCode="Saloni Dallass d">Urine Medical Bilirubin Center </content>NEGA TIVE <content styleCode="Jaz lics"> (NEGATIVE )</content> Hemoglobin NEGATIVE <content [facility] [Presence] in styleCode="Saloni Patino Urine by Test d">Urine Blood Medical strip </content>MODE Center RATE <content styleCode="Jaz lics"> (NEGATIVE )</content> pH of Urine by 4.5-8.0 <content [facility] Test strip styleCode="Saloni Dallass d">Urine pH Medical </content>5.5 Center <content styleCode="Jaz lics"> (4.5-8.0 )</content> Protein NEGATIVE <content [facility] [Mass/volume] styleCode="Saloni Dallass in Urine by d">Urine Medical Test strip Protein Center </content>30 MG/DL<content styleCode="Jaz lics"> (NEGATIVE MG/DL)</conten t> Specific 1.015-1.02 Above high <content [facility] gravity of 5 normal styleCode="Saloni Patino Urine by Test d">Urine Medical strip Specific Center [place] </content>>= 1.030 H<content styleCode="Jaz lics"> (1.015-1.025 )</content> Urobilinogen 0.2-1.0 <content [facility] [Units/volume] styleCode="Saloni Sukumar in Urine by d">Urine Medical Test strip Urobilinogen Center </content>0.2 MG/DL<content styleCode="Jaz lics"> (0.2-1.0 MG/DL)</conten t> Nitrite NEGATIVE <content [facility] [Presence] in styleCode="Saloni Patino Urine by Test d">Urine Medical strip Nitrite Center </content>NEGA TIVE <content styleCode="Jaz lics"> (NEGATIVE )</content> UNK 0-3 <content [facility] styleCode="Saloni Sukumar d">Urine Red Medical Blood Cell Center </content>>200 HPF<content styleCode="Jaz lics"> (0-3 HPF)</content> Leukocyte NEGATIVE <content [facility] esterase styleCode="Saloni Dallass [Presence] in d">Urine Medical Urine by Test Leukocyte Center strip </content>NEGA TIVE <content styleCode="Jaz lics"> (NEGATIVE )</content> UNK NONE SEEN <content [facility] styleCode="Saloni Sukumar d">Epithelial Medical Cell Center </content>0-2 HPF<content styleCode="Jaz lics"> (NONE SEEN HPF)</content> ID Date Data Source HematologyRou.[id number] 12/17/2018 04:00:00 PM ADRIAN [facility] 0500 Name Value Range Interpretation Description Data Sup porting Code Source(s) Document(s ) Erythrocytes 4.0-5.1 Above high <content [facility] [#/volume] in normal styleCode="[facility] Blood by ">Red Blood Medical Automated count Cell Count Center </content>5.21 MCUMM H<content styleCode="Ital ics"> (4.0-5.1 MCUMM)</content > Leukocytes 4.4-11.0 Above high <content [facility] [#/volume] in normal styleCode="Bold Sukumar Blood by ">White Blood Medical Automated count Cell Count Center </content>14.23 KCUMM H<content styleCode="Ital ics"> (4.4-11.0 KCUMM)</content > Erythrocyte mean 80.0-100 <content [facility] corpuscular .0 styleCode="Bold Sukumar volume [Entitic ">Mean Medical volume] by Corpuscular Center Automated count Volume </content>86.0 FL<content styleCode="Ital ics"> (80.0-100.0 FL)</content> Hematocrit 36.0-46. <content [facility] [Volume 0 styleCode="Bold Sukumar Fraction] of ">Hematocrit Medical Blood by </content>44.8 Center Automated count %<content styleCode="Ital ics"> (36.0-46.0 %)</content> Hemoglobin 12.3-16. <content [facility] [Mass/volume] in 0 styleCode="Bold Sukumar Blood ">Hemoglobin Medical </content>14.9 Center G/DL<content styleCode="Ital ics"> (12.3-16.0 G/DL)</content> Erythrocyte 11.5-14. <content [facility] distribution 5 styleCode="Bold Sukumar width [Ratio] by ">Red Cell Medical Automated count Distribution Center Width </content>13.7 %<content styleCode="Ital ics"> (11.5-14.5 %)</content> Platelets 130-400 <content [facility] [#/volume] in styleCode="Bold Sukumar Blood by ">Platelet Medical Automated count Count Center </content>219 KCUMM<content styleCode="Ital ics"> (130-400 KCUMM)</content > Erythrocyte mean 32.0-37. <content [facility] corpuscular 0 styleCode="Bold Sukumar hemoglobin ">Mean Corpus. Medical concentration Hgb Center [Mass/volume] by Concentration Automated count (MCHC) </content>33.3 G/DL<content styleCode="Ital ics"> (32.0-37.0 G/DL)</content> Erythrocyte mean 26.0-34. <content [facility] corpuscular 0 styleCode="Bold Sukumar hemoglobin ">Mean Medical [Entitic mass] Corposcular Center by Automated Hemoglobin count </content>28.6 PG<content styleCode="Ital ics"> (26.0-34.0 PG)</content> Platelet mean 8.0-11.0 Above high <content [facility] volume [Entitic normal styleCode="Bold Sukumar volume] in Blood ">Mean Platelet Medical by Automated Volume Center count </content>11.7 FL H<content styleCode="Ital ics"> (8.0-11.0 FL)</content> UNK 0 <content [facility] styleCode="Bold Sukumar ">Nucleated Red Medical Blood Cell Center </content>0.0 /100<content styleCode="Ital ics"> (0 /100)</content> UNK 0.0 <content [facility] styleCode="Bold Sukumar ">Nucleated Red Medical Blood Cell Center Count </content>0.00 KCUMM<content styleCode="Ital ics"> (0.0 KCUMM)</content > ID Date Data Source GFR(Creatinine).[id number] 12/17/2018 04:00:00 PM EST [facility] 0-0500 Name Value Range Interpretation Code Description Data Tracy rce(s) Supporting Document(s ) UNK > 60 <content [facility] styleCode="Bold"> Medical Cent er EGFR </content>121 GFR<content styleCode="Italic s"> (> 60 GFR)</content> ID Date Data Source Coagulation 12/17/2018 04:00:00 PM [facility] Rout.[id number] EST Name Value Range Interpretation Description Data Sup porting Code Source(s) Document(s ) INR in 0.80-1.2 <content [facility] Platelet poor 0 styleCode="Bold" Sukumar plasma by >INR Medical Coagulation </content>1.08 Center assay #<content styleCode="Itali cs"> (0.80-1.20 #)</content> UNK 9.0-13.0 <content [facility] styleCode="Bold" Sukumar >Protime Medical </content>12.0 Center SEC<content styleCode="Itali cs"> (9.0-13.0 SEC)</content> UNK < 500 <content [facility] styleCode="Bold" Sukumar >D-Dimer Medical </content>471 Center ngFEU<content styleCode="Itali cs"> (< 500 ngFEU)</content> aPTT in 25.1-36. <content [facility] Platelet poor 5 styleCode="Bold" Sukumar plasma by >Partial Medical Coagulation Thromboplastin Center assay Time </content>27.4 SEC<content styleCode="Itali cs"> (25.1-36.5 SEC)</content> ID Date Data Source [facility].[id number] 12/17/2018 04:00:00 PM EST [facility] Name Value Range Interpretation Description Data Sup porting Code Source(s) Document(s ) Chloride 98-107 <content [facility] [Moles/volume] styleCode="Saloni Sukumar in Serum or d">Chloride Medical Plasma </content>105 Center MEQ/L<content styleCode="Jaz lics"> (98-107 MEQ/L)</conten t> Potassium <content [facility] [Moles/volume] styleCode="Saloni Sukumar in Serum or d">Potassium Medical Plasma </content>Test Center not performed. MEQ/L (Reference Range: not available)<br/ > Sodium 137-145 <content [facility] [Moles/volume] styleCode="Saloni Sukumar in Serum or d">Sodium Medical Plasma </content>139 Center MEQ/L<content styleCode="Jaz lics"> (137-145 MEQ/L)</conten t> UNK 7-17 <content [facility] styleCode="Saloni Sukumar d">BUN Medical </content>8 Center MG/DL<content styleCode="Jaz lics"> (7-17 MG/DL)</conten t> Glucose 74-106 Above high normal <content [facility] [Mass/volume] styleCode="Saloni Sukumar in Serum or d">Glucose Medical Plasma </content>118 Center MG/DL H<content styleCode="Jaz lics"> (74-106 MG/DL)</conten t> Creatinine 0.5-1.3 <content [facility] [Mass/volume] styleCode="Saloni Sukumar in Serum or d">Creatinine Medical Plasma </content>0.6 Center MG/DL<content styleCode="Jaz lics"> (0.5-1.3 MG/DL)</conten t> Carbon 22-30 <content [facility] dioxide, total styleCode="Saloni Sukumar [Moles/volume] d">Carbon Medical in Serum or Dioxide Center Plasma </content>25 MEQ/L<content styleCode="Jaz lics"> (22-30 MEQ/L)</conten t> UNK > 60 <content [facility] styleCode="Saloni Sukumar d">EGFR Medical </content>121 Center GFR<content styleCode="Jaz lics"> (> 60 GFR)</content> Calcium 8.4-10.2 <content [facility] [Mass/volume] styleCode="Saloni Sukumar in Serum or d">Calcium Medical Plasma </content>8.9 Center MG/DL<content styleCode="Jaz lics"> (8.4-10.2 MG/DL)</conten t> ID Date Data Source COMPREHENSIVE METABOLIC 04/12/2018 02:56:37 AM eCW3 ([facility] (3427-2).13 EST Care) Name Value Range Interpretation Description Data Sup porting Code Source(s) Document(s ) Protein 7.5 Total Protein eCW3 [Mass/volume] in ([facility] or [facility]) Globulin 3.0 Globulin eCW3 [Mass/volume] in ([facility]) Albumin/Globulin 1.5 A/G Ratio eCW3 [Mass Ratio] in ([facility] or [facility]) Sodium 140 Sodium eCW3 [Moles/volume] in ([facility]) Albumin 4.5 Albumin eCW3 [Mass/volume] in ([facility] Serum or Plasma [facility]) Creatinine 0.81 Creatinine eCW3 [Mass/volume] in ([place] Serum or Plasma [facility]) Carbon dioxide, 26 CO2 eCW3 total ([place] [Moles/volume] in [facility] Serum or Plasma Health Care) Potassium 4.0 Potassium eCW3 [Moles/volume] in ([place] Serum or Plasma [facility]) Chloride 100 Chloride eCW3 [Moles/volume] in ([place] Serum or Plasma [facility]) Urea nitrogen 12 BUN eCW3 [Mass/volume] in ([place] Serum or Plasma [facility]) Mycoplasma 14.8 BUN/Creat eCW3 pneumoniae DNA Ratio ([place] [Units/volume] in River Blood by [facility] Health target Care) amplification method Glomerular 94 e-GFR eCW3 filtration ([place] rate/1.73 sq [facility] M.predicted [Volume Health Rate/Area] in Serum Care) or Plasma by Creatinine-based formula (MDRD) Glomerular 109 e-GFR, eCW3 filtration ([place] rate/1.73 sq M Citizen [place] predicted among Health blacks [Volume Care) Rate/Area] in Serum or Plasma by Creatinine-based formula (MDRD) Calcium 9.1 Calcium eCW3 [Mass/volume] in ([place] Serum or Plasma [facility]) Aspartate 33 AST eCW3 aminotransferase ([place] [Enzymatic River activity/volume] in Health Serum or Plasma Care) Alkaline 174 Alk Phos eCW3 phosphatase ([place] [Enzymatic River activity/volume] in Health Serum or Plasma Care) Bilirubin.total 0.3 Bilirubin, eCW3 [Mass/volume] in Total ([place] Serum or Plasma [facility]) Alanine 43 ALT eCW3 aminotransferase ([place] [Enzymatic River activity/volume] in Health Serum or Plasma Care) Glucose 98 Glucose eCW3 [Mass/volume] in ([place] Serum or Plasma [facility]) ID Date Data Source VITAMIN D, 25-HYDROXY, 04/12/2018 02:56:37 AM EST eCW3 ([facility] SERUM.12 Care) Name Value Range Interpretation Description Data Sup porting Code Source(s) Document(s ) Calcidiol 22.3 25OH, VITAMIN D eCW3 ([place] [Mass/volume] [facility] in Serum or Care) Plasma ID Date Data Source TETANUS ANTITOXIN ASSAY, 04/11/2018 02:14:13 AM EST eCW3 ([facility] SERUM.7 Care) Name Value Range Interpretation Code Description Data Supporting Source(s) Document(s ) Renin 1.10 Tetanus eCW3 ([place] [Enzymatic Antibody IgG [facility] activity/vo (58) Care) lume] in Plasma ID Date Data Source Segundo (HIV), In House.1 04/11/2018 02:00:06 AM EST [facility]CW3 ( [facility]) Name Value Range Interpretation Description Data Sup porting Code Source(s) Document(s ) HIV 1 RNA non reactive Oraquick eCW3 ([place] [#/volume] [facility] (viral Care) load) in Serum or Plasma by DNA probe ID Date Data Source URINALYSIS W/REFLEX TO CULTURE 04/09/2018 09:52:28 AM EST eC W3 ([facility] B518-2.11 Care) Name Value Range Interpretation Code Description Data Supporting Source(s) Document(s ) NEGATIVE Protein, Urine eCW3 ([facility]) 1.021 Specific [place] eCW3 ([facility]) 5.5 pH Urine eCW3 ([facility]) NEGATIVE Ketone, Urine eCW3 ([facility]) NEGATIVE Glucose, Urine eCW3 ([facility]) 0.2 Urobilinogen eCW3 ([facility]) NEGATIVE Bilirubin, Urine eCW3 ([facility]) NEGATIVE Blood, Urine eCW3 ([facility]) NONE Crystals Urine eCW3 ([facility]) 5-10 WBC, Urine eCW3 ([facility]) NEGATIVE Nitrites Urine eCW3 ([facility]) NONE SEEN RBC, Urine eCW3 ([facility]) 0-4 Cast, Hyaline, eCW3 ([facility]) NONE SEEN Cast, RBC, Urine eCW3 ([facility]) FEW Epithelial Cells, eCW3 ([facility]) TRACE Leukocyte eCW3 ([facility]) NONE Crystal Amt. eCW3 ([facility]) NONE Bacteria, Urine eCW3 ([facility]) NONE SEEN Cast, Granular, eCW3 ([facility]) YELLOW Color eCW3 ([facility]) CLEAR Character eCW3 ([facility]) ID Date Data Source THYROID PANEL [id number] 04/09/2018 09:52:28 AM EST eCW3 ([facility]) Name Value Range Interpretation Code Description Data Tracy rce(s) Supporting Document(s ) 30.6 T3 Uptake (T3U) eCW3 ([facility]) 0.919 TSH eCW3 ([facility]) 1.25 THYROXINE, FREE eCW3 ([place] (FT4) [facility]) ID Date Data Source TETANUS ANTIBODY, IGG.9 04/09/2018 09:52:28 AM EST eCW3 ([facility]) Name Value Range Interpretation Code Description Data Tracy rce(s) Supporting Document(s ) TETANUS ANTIBODY, eCW3 ([facility]) ID Date Data Source HEPATITIS PANEL A, B, C 04/09/2018 09:52:28 AM EST eCW3 ([facility] SCREENING (2280-6).8 Care) Name Value Range Interpretation Description Data Sup porting Code Source(s) Document(s ) Non-Reactiv HEP. B SURF. eCW3 e Ag ([facility]) Reactive HEP. B SURF. eCW3 Ab. ([facility]) Non-Reactiv HEP. B CORE eCW3 e Ab. IGG ([facility]) Hepatitis A Reactive HEP. A Ab., eCW3 virus Ab TOTAL ([place] [Presence] in [facility] Serum by Health Immunoassay Care) Hepatitis C Non-Reactiv HEP. C Ab. eCW3 virus Ab e ([place] [Presence] in [facility] Serum or Health Plasma by Care) Immunoassay ID Date Data Source VARICELLA IMMUNITY TITERS.6 04/09/2018 09:52:28 AM EST eCW3 ([facility]) Name Value Range Interpretation Description Data Sup porting Code Source(s) Document(s ) Parathyrin. 2174.0 VARICELLA eCW3 ([place] intact ZOS.(IgG) [facility] [Mass/volum Care) e] in Serum or Plasma ID Date Data Source HAV AB, (IGM).5 04/09/2018 09:52:28 AM EST eCW3 ([facility]) Name Value Range Interpretation Description Data Sup porting Code Source(s) Document(s ) Hepatitis A Non-Reac HEP. A Ab., eCW3 ([place] virus IgM Ab tive IgM [facility] [Presence] in Care) Serum or Plasma by Immunoassay ID Date Data Source CBC W/DIFF, PLATELET CT. 04/09/2018 09:52:28 AM EST eCW3 ([facility] (0053-9).4 Care) Name Value Range Interpretation Code Description Data Tracy rce(s) Supporting Document(s ) 8.59 WBC eCW3 ([facility]) 14.6 HGB eCW3 ([facility]) 5.10 RBC eCW3 ([facility]) 43.4 HCT eCW3 ([facility]) 85.1 MCV eCW3 ([facility]) 33.6 MCHC eCW3 ([facility]) 28.6 MCH eCW3 ([facility]) 14.3 RDW eCW3 ([facility]) 25.0 LYMPHS eCW3 ([facility]) 66.7 POLYS eCW3 ([facility]) 2.15 LYMPHS, ABS. COUNT eCW3 ([facility]) 5.72 POLYS, ABS. COUNT eCW3 ([facility]) 1.6 EOS eCW3 ([facility]) 0.14 EOS, ABS. COUNT eCW3 ([facility]) 5.6 MONOS eCW3 ([facility]) 0.48 MONOS, ABS. COUNT eCW3 ([facility]) 0.08 BASOS, ABS. COUNT eCW3 ([facility]) 0.2 IMMATURE eCW3 ([facility]) 0.9 BASOS eCW3 ([facility]) 253 PLATELET COUNT eCW3 ([facility]) 11.4 MPV eCW3 ([facility]) ID Date Data Source HEMOGLOBIN A1c (glycohgb) 04/09/2018 09:52:28 AM EST eCW3 ([facility] (0102-4) BIOREFERENCE.3 Care) Name Value Range Interpretation Description Data Sup porting Code Source(s) Document(s ) Hemoglobin 5.6 Hemoglobin A1c eCW3 ([place] A1c/Hemoglobin [facility] .total in Care) Blood ID Date Data Source LIPID PANEL ([facility] 04/09/2018 09:52:28 AM EST eCW3 ([facility]) [id number] Care) Name Value Range Interpretation Description Data Sup porting Code Source(s) Document(s ) Cholesterol 176 Cholesterol eCW3 ([place] [Mass/volume] [facility] in Serum or Care) Plasma Deprecated 29 HDL as % of eCW3 ([place] Cholesterol Cholesterol [facility] [Mass/volume] Care) in Serum or Plasma Triglyceride 136 Triglycerides eCW3 ([place] [Mass/volume] [facility] in Serum or Care) Plasma Cholesterol in 51 HDL CHOL., eCW3 ([place] HDL DIRECT [facility] [Mass/volume] Care) in Serum or Plasma Cholesterol in 98 LDL Cholesterol eCW3 ([facility] son LDL [facility] [Mass/volume] Care) in Serum or Plasma by calculation Deprecated 1.92 LDL/HDL Ratio eCW3 ([place] Cholesterol [facility] [Mass/volume] Care) in Serum or Plasma Deprecated 27 VLDL, CALCULATED eCW3 ([place] Cholesterol [facility] [Mass/volume] Care) in Serum or Plasma Deprecated 3.5 Chol/HDL Ratio eCW3 ([place] Cholesterol [facility] [Mass/volume] Care) in Serum or Plasma Deprecated 125 Non-HDL eCW3 ([place] Cholesterol Cholesterol [facility] [Mass/volume] Care) in Serum or Plasma ID Date Data Source Measles/Mumps/Rubella 04/09/2018 09:52:28 AM EST eCW3 ([facility]) Immunity.0 Name Value Range Interpretation Code Description Data Tracy rce(s) Supporting Document(s ) 47.7 RUBEOLA/MEASLES(I eCW3 ([place] gG) [facility]) <5.0 MUMPS VIRUS eCW3 ([place] Ab.(IgG) [facility]) 15.4 RUBELLA,IgG eCW3 ([facility]) ID Date Data Source TSH W/FREE T4 REFLEX 11/28/2017 12:00:00 AM EDT eCW2 ([facility] (A518-3).6 Care) Name Value Range Interpretation Code Description Data Tracy rce(s) Supporting Document(s ) 1.870 0.178-4.53 TSH W/RFX TO eCW2 ([place] 0 FREE T4 [facility]) ID Date Data Source COMPREHENSIVE METABOLIC ([id number] 11/28/2017 12:00:00 AM eC W2 ([facility] EDT Care) Name Value Range Interpretation Description Data Sup porting Code Source(s) Document(s ) Albumin 4.0 3.5-5.2 Albumin eCW2 [Mass/volume] in ([place] Serum or Plasma [facility]) Globulin 2.9 1.7-3.7 Globulin eCW2 [Mass/volume] in ([place] Serum [facility]) Protein 6.9 5.9-8.4 Total Protein eCW2 [Mass/volume] in ([place] Serum or [facility]) Carbon dioxide, 23 22-29 CO2 eCW2 total ([place] [Moles/volume] in [place] Serum or [facility]) Sodium 137 135-147 Sodium eCW2 [Moles/volume] in ([place] Serum or [facility]) Potassium 4.0 3.5-5.5 Potassium eCW2 [Moles/volume] in ([place] Serum or [facility]) Albumin/Globulin 1.4 1.1-2.9 A/G Ratio eCW2 [Mass Ratio] in ([place] Serum or [facility]) Chloride 98 96-108 Chloride eCW2 [Moles/volume] in ([place] Serum or [facility]) Glomerular 117 >or=60 e-GFR, eCW2 filtration ([place] rate/1.73 sq M Citizen [place] predicted among Health blacks [Volume Care) Rate/Area] in Serum or Plasma by Creatinine-based formula (MDRD) Mycoplasma 24.7 10.0-28 BUN/Creat eCW2 pneumoniae DNA .0 Ratio ([place] [Units/volume] in [place] Blood by [facility] and Health target Care) amplification method Creatinine 0.77 0.49-1. Creatinine eCW2 [Mass/volume] in 02 ([place] Serum or [facility]) Glomerular 101 >or=60 e-GFR eCW2 filtration ([place] rate/1.73 sq [place] M.predicted [Volume Health Rate/Area] in Serum Care) or Plasma by Creatinine-based formula (MDRD) Urea nitrogen 19 6-20 BUN eCW2 [Mass/volume] in ([facility] or [facility] Care) Alkaline 254 40-156 Alk Phos eCW2 phosphatase ([place] [Enzymatic [place] activity/volume] in Health Serum or Plasma Care) Glucose 105 70-99 Glucose eCW2 [Mass/volume] in ([facility] or [facility] Care) Bilirubin.total 0.3 <1.2 Bilirubin, eCW2 [Mass/volume] in Total ([facility] or [facility]) Calcium 9.0 8.6-10. Calcium eCW2 [Mass/volume] in 4 ([facility] or [facility] Care) Alanine 160 <33 ALT eCW2 aminotransferase ([place] [Enzymatic [place] activity/volume] in Health Serum or Plasma Care) Aspartate 89 <32 AST eCW2 aminotransferase ([place] [Enzymatic [place] activity/volume] in Health Serum or Plasma Care) ID Date Data Source CBC W/DIFF, PLATELET CT. 11/28/2017 12:00:00 AM EDT eCW2 ([facility] ([id number]).4 Care) Name Value Range Interpretation Code Description Data Supporting Source(s) Document(s ) 14.5 11.0-15.5 HGB [facility]CW2 ([facility]) 12.64 4.00-10.10 WBC eCW2 ([facility]) 44.3 31.5-44.8 HCT eCW2 ([facility]) 5.11 3.58-5.19 RBC eCW2 ([facility]) 86.7 78.0-98.0 MCV eCW2 ([facility]) 65.2 37.1-78.1 POLYS eCW2 ([facility]) 32.7 31.0-34.7 MCHC eCW2 ([facility]) 14.6 12.0-15.5 RDW eCW2 ([facility]) 28.4 25.2-32.6 MCH eCW2 ([facility]) 23.9 13.7-50.9 LYMPHS eCW2 ([facility]) 3.02 0.80-3.00 LYMPHS, ABS. eCW2 ([facility]) 6.8 3.0-11.9 MONOS eCW2 ([facility]) 8.24 1.30-7.00 POLYS, ABS. COUNT eCW2 ([facility]) 0.05 0.00-0.70 BASOS, ABS. COUNT eCW2 ([facility]) 3.5 0.0-5.0 EOS eCW2 ([facility]) 0.4 0.0-1.0 BASOS eCW2 ([facility]) 0.44 0.00-0.40 EOS, ABS. COUNT eCW2 ([facility]) 0.86 0.00-1.00 MONOS, ABS. COUNT eCW2 ([facility]) 12.4 8.6-12.1 MPV eCW2 ([facility]) 0.2 0.0-1.0 IMMATURE eCW2 ([facility]) 245 140-425 PLATELET COUNT eCW2 ([facility]) ID Date Data Source VITAMIN D, 25-HYDROXY, SERUM.3 11/28/2017 12:00:00 AM EDT eC W2 ([facility]) Name Value Range Interpretation Description Data Sup porting Code Source(s) Document(s ) Calcidiol 23.6 32.0-100. 25OH, VITAMIN eCW2 ([place] [Mass/volume] 0 D [facility] in Serum or Care) Plasma ID Date Data Source HEMOGLOBIN A1c (glycohgb) 11/28/2017 12:00:00 AM EDT eCW2 ([facility] (0102-4) BIOREFERENCE.2 Care) Name Value Range Interpretation Description Data Sup porting Code Source(s) Document(s ) Hemoglobin 5.6 <5.7 Hemoglobin A1c eCW2 ([place] A1c/Hemoglobin [facility] .total in Care) Blood ID Date Data Source LIPID PANEL ([facility] 11/28/2017 12:00:00 AM EDT eCW2 ([facility]).1 Care) Name Value Range Interpretation Description Data Sup porting Code Source(s) Document(s ) Cholesterol 212 <200 Cholesterol eCW2 ([place] [Mass/volume] [facility] in Serum or Care) Plasma Cholesterol in 53 >50 HDL CHOL., eCW2 ([place] HDL DIRECT [facility] [Mass/volume] Care) in Serum or Plasma Deprecated 4.0 <5.8 Chol/HDL Ratio eCW2 ([place] Cholesterol [facility] [Mass/volume] Care) in Serum or Plasma Deprecated 25 >14 HDL as % of eCW2 ([place] Cholesterol Cholesterol [facility] [Mass/volume] Care) in Serum or Plasma Triglyceride 248 <150 Triglycerides eCW2 ([place] [Mass/volume] [facility] in Serum or Care) Plasma Cholesterol in 109 <100 LDL Cholesterol eCW2 ([facility] LDL [facility] [Mass/volume] Care) in Serum or Plasma by calculation Deprecated 50 7-32 VLDL, CALCULATED eCW2 ([place] Cholesterol [facility] [Mass/volume] Care) in Serum or Plasma Deprecated 159 <130 Non-HDL eCW2 ([facility] Cholesterol [facility] [Mass/volume] Care) in Serum or Plasma Deprecated 2.06 <3.56 LDL/HDL Ratio eCW2 ([facility] [Mass/volume] Care) in Serum or Plasma ID Date Data Source Chlamydia/GC 11/28/2017 12:00:00 AM EDT eCW2 ([facility]) RRNA,APTIMA,urine [id number] Name Value Range Interpretation Description Data Sup porting Code Source(s) Document(s ) Chlamydia NEGATIVE NEGATIVE C.TRACHOMATIS eCW2 trachomatis+Ne RRNA URN ([place] isseria [place] gonorrhoeae [facility] Care) [Presence] in Urine by DNA probe Clostridium NEGATIVE NEGATIVE N.GONORRHOEAE eCW2 difficile RRNA URN ([place] toxin A+B [place] [Presence] in Health Stool Care) Procedure Social History Code Duration Value Status Description Data Source(s ) Smoking 08/18/2019 Current Smoker completed Current Smoker eCW3 ( [place] 12:00:00 AM EDT Health Ca re) Smoking 12/17/2018 Daily Smoker completed Daily Smoker [facility] 10:50:00 PM EST Medical C enter Smoking 12/17/2018 Daily Smoker completed Daily Smoker [facility] 10:08:00 PM EST Medical C enter Smoking 12/17/2018 Daily Smoker completed Daily Smoker [facility] 03:00:00 PM EST Medical C enter Smoking 12/17/2018 Daily Smoker completed Daily Smoker [facility] 02:55:00 PM EST Medical C enter Smoking 04/06/2018 Current Smoker completed Current Smoker eCW3 ( [place] 12:00:00 AM EST Health Ca re) Current Smoker completed Current Smoker eCW3 ( [facility]) Smoking Current Smoker completed Current Smoker eCW2 ( [facility]) Current Smoker completed Current Smoker eCW3 ( [facility]) Vital Signs ID Date Data Source UNK Name Value Range Interpretation Code Description Data Source(s) Diastolic blood 73.0 MM[HG] 73.0 MM[HG] NETSMAR T pressure ([facility]) Systolic blood 118.0 118.0 MM[HG] NETSMART pressure MM[HG] ([facility]) Body temperature 37.0556 EUGENIA 37.0556 EUGENIA NETSMA RT ([facility]) Body temperature 98.7 [degF] 98.7 [degF] NETSMA RT ([facility]) Body mass index 29.1 % 29.1 % NETSMART (BMI) [Ratio] ([facility]) Body height 177.0 cm 177.0 cm [facility] ([facility]) Region of interest 69.5 [IN_I] 69.5 [IN_I] NETS MART Height by US.M-mode ([facility]) Oxygen saturation 98.0 % 98.0 % [facility] T in Arterial blood ([facility] by Pulse oximetry [facility]) Body weight 91.0 kg 91.0 kg [facility] ([facility]) Body weight 200.0 200.0 [lb_av] [facility] Measured [lb_av] ([facility]) Heart rate 105.0 /MIN 105.0 /MIN [facility] ([facility]) Body temperature 36.7222 EUGENIA 36.7222 EUGENIA NETSMA RT ([facility]) Body temperature 98.1 [degF] 98.1 [degF] NETSMA RT ([facility]) Body mass index 6.2 % 6.2 % NETSMART (BMI) [Ratio] ([facility]) Body height 381.0 cm 381.0 cm [facility] ([facility]) Region of interest 150.0 150.0 [IN_I] NETS MART Height by US.M-mode [IN_I] ([facility]) Body weight 91.0 kg 91.0 kg NETSMART ([facility]) Body weight 200.0 200.0 [lb_av] NETSMART Measured [lb_av] ([facility]) Heart rate 96.0 /MIN 96.0 /MIN NETSMART ([facility]) Body temperature 36.791811 36.583921 [facility] Respiratory rate 18 /min 18 /min [facility] Heart rate 85 /min 85 /min [facility] Diastolic blood 70 mm[Hg] 70 mm[Hg] [facility] Systolic blood 137 mm[Hg] 137 mm[Hg] [facility] Oxygen saturation 96 % 96 % [facility] in [facility] blood [facility] by Pulse oximetry Body temperature 36.303880 36.194246 [facility] Respiratory rate 19 /min 19 /min [facility] Heart rate 103 /min 103 /min [facility] Diastolic blood 62 mm[Hg] 62 mm[Hg] [facility] Systolic blood 98.2 mm[Hg] 98.2 mm[Hg] [facility] Body temperature 36.882745 36.630120 [facility] Respiratory rate 20 /min 20 /min [facility] Heart rate 80 /min 80 /min [facility] Diastolic blood 72 mm[Hg] 72 mm[Hg] [facility] Systolic blood 111 mm[Hg] 111 mm[Hg] [facility] Body temperature 36.824319 36.153829 [facility] Respiratory rate 20 /min 20 /min [facility] Heart rate 98 /min 98 /min [facility] Diastolic blood 63 mm[Hg] 63 mm[Hg] [facility] Systolic blood 117 mm[Hg] 117 mm[Hg] [facility] Body temperature 36.448577 36.682815 [facility] Respiratory rate 18 /min 18 /min [facility] Heart rate 108 /min 108 /min [facility] Diastolic blood 67 mm[Hg] 67 mm[Hg] [facility] Systolic blood 100 mm[Hg] 100 mm[Hg] [facility] Oxygen saturation 96 % 96 % J oseph[facility] in Arterial blood Medical Center by Pulse oximetry Inhaled oxygen 24 % 24 % [facility] Inhaled oxygen 40 % 40 % [facility] ter Oxygen saturation 93 % 93 % [facility] in Arterial blood [facility] by Pulse oximetry Oxygen saturation 95 % 95 % [facility] in Arterial blood [facility] by Pulse oximetry Body temperature 37.092523 37.716374 [facility] Respiratory rate 20 /min 20 /min [facility] Heart rate 121 /min 121 /min [facility] Diastolic blood 71 mm[Hg] 71 mm[Hg] [facility] Systolic blood 109 mm[Hg] 109 mm[Hg] [facility] Body weight 88.240970 88.543387 kg [facility] Measured kg [facility] Oxygen saturation 85 % 85 % [facility] in Arterial blood [facility] by Pulse oximetry Body height 175.718853 175.235534 cm [facility] Body mass index 28.81 kg/m2 28.81 kg/m2 [facility]ph[facility] (BMI) [Ratio] Medical [facility] ter Body temperature 36.447048 36.062069 [facility] Respiratory rate 20 /min 20 /min [facility] Heart rate 117 /min 117 /min [facility] Diastolic blood 76 mm[Hg] 76 mm[Hg] [facility] Systolic blood 124 mm[Hg] 124 mm[Hg] [facility] Inhaled oxygen 24 % 24 % [facility] ter Body weight 88.168324 88.218659 kg [facility] Measured kg [facility] Body height 175.402451 175.438153 cm [facility] Body mass index 28.81 kg/m2 28.81 kg/m2 [facility] J osephs (BMI) [Ratio] Medical [facility] ter Body temperature 36.344202 36.103247 [facility] Respiratory rate 20 /min 20 /min [facility] Heart rate 124 /min 124 /min [facility] Diastolic blood 79 mm[Hg] 79 mm[Hg] [facility] Systolic blood 134 mm[Hg] 134 mm[Hg] [facility] Body temperature 36.544524 36.686250 [facility] Respiratory rate 22 /min 22 /min [facility] Oxygen saturation 92 % 92 % [facility] in [facility] blood [facility] by Pulse oximetry Heart rate 123 /min 123 /min [facility] Diastolic blood 82 mm[Hg] 82 mm[Hg] [facility] Systolic blood 144 mm[Hg] 144 mm[Hg] [facility] Body temperature 36.682712 36.278177 [facility] Respiratory rate 22 /min 22 /min [facility] Oxygen saturation 88 % 88 % [facility] in Arterial blood [facility] by Pulse oximetry Heart rate 111 /min 111 /min [facility] Diastolic blood 87 mm[Hg] 87 mm[Hg] [facility] Systolic blood 126 mm[Hg] 126 mm[Hg] [facility] Body weight 95.018115 95.749606 kg [facility] Measured kg [facility] Body height 175.267145 175.981219 cm [facility] Body mass index 31.0 kg/m2 31.0 kg/m2 [facility] (BMI) [Ratio] [facility] Oxygen saturation 88 % 88 % [facility] o[facility]ph[facility] in [facility] blood [facility] by Pulse oximetry Diastolic blood 70 mm[Hg] 70 mm[Hg] eCW3 ([facility]) Systolic blood 101 mm[Hg] 101 mm[Hg] eCW3 ([facility]) Body temperature 97.8 [degF] 97.8 [degF] eCW3 ( [facility]) Body mass index 29.84 kg/m2 29.84 kg/m2 eCW3 (H ann (BMI) [Ratio] [facility]) Body weight 205 [lb_av] 205 [lb_av] eCW3 ([facility]) Body height 69.5 [in_i] 69.5 [in_i] eCW3 ([facility]) Body mass index 31.3 % 31.3 % NETSMART (BMI) [Ratio] ([facility]) Body height 177.0 cm 177.0 cm NETSMART ([facility]) Region of interest 69.5 [IN_I] 69.5 [IN_I] NETS MART Height by US.M-mode ([facility]) Body weight 98.0 kg 98.0 kg NETSMART ([facility]) Body weight 215.0 215.0 [lb_av] NETSMART Measured [lb_av] ([facility]) Heart rate 98.0 /MIN 98.0 /MIN NETSMART ([facility]) Body temperature 36.6667 EUGENIA 36.6667 EUGENIA NETSMA RT ([facility]) Body temperature 98.0 [degF] 98.0 [degF] NETSMA RT ([facility]) Body mass index 31.3 % 31.3 % NETSMART (BMI) [Ratio] ([facility]) Body height 177.0 cm 177.0 cm NETSMART ([facility]) Region of interest 69.5 [IN_I] 69.5 [IN_I] NETS MART Height by US.M-mode ([facility]) Body weight 98.0 kg 98.0 kg NETSMART ([facility]) Body weight 215.0 215.0 [lb_av] NETSMART Measured [lb_av] ([facility]) Heart rate 101.0 /MIN 101.0 /MIN NETSMART ([facility]) Body mass index 30.9 % 30.9 % NETSMART (BMI) [Ratio] ([facility]) Body height 175.0 cm 175.0 cm [facility] ([facility]) Region of interest 69.0 [IN_I] 69.0 [IN_I] NETS MART Height by US.M-mode ([facility]) Body weight 95.0 kg 95.0 kg NETSMART ([facility]) Body weight 209.0 209.0 [lb_av] NETSMART Measured [lb_av] ([facility]) Heart rate 85.0 /MIN 85.0 /MIN NETSMART ([facility]) Diastolic blood 79 mm[Hg] 79 mm[Hg] eCW3 ([facility]) Systolic blood 111 mm[Hg] 111 mm[Hg] eCW3 ([facility]) Body temperature 98.7 [degF] 98.7 [degF] eCW3 ( [facility]) Body mass index 31.73 kg/m2 31.73 kg/m2 eCW3 ([facility]il[facility]arez (BMI) [Ratio] [facility]) Body weight 218 [lb_av] 218 [lb_av] eCW3 ([facility]) Body height 69.5 [in_i] 69.5 [in_i] eCW3 ([facility]) Diastolic blood 63 mm[Hg] 63 mm[Hg] eCW2 ([facility]) Systolic blood 95 mm[Hg] 95 mm[Hg] eCW2 ([facility]) Body temperature 97.9 [degF] 97.9 [degF] eCW2 ( [facility]) Body mass index 30.42 kg/m2 30.42 kg/m2 eCW2 (Emiliano juarez (BMI) [Ratio] [facility]) Body weight 209 [lb_av] 209 [lb_av] eCW2 ([facility]) Body height 69.5 69.5 [in_us] eCW2 ([facility] [in_us] [facility]) Patient Treatment Plan of Care Planned Activity Planned Date Details Description Data Source (s) Hydroxyzine Hydrochloride 11/20/2017 eC W2 ([place] 25 MG Oral Tablet 12:00:00 AM [facility]) Cyclobenzaprine 11/20/2017 eCW2 ([place] hydrochloride 10 MG Oral 12:00:00 AM [facility]) Tablet Albuterol 0.83 MG/ML 09/26/2016 eCW2 ([place] Inhalant Solution 12:00:00 AM [facility]) ipratropium-albuterol 0.5 Sa int Sukumar mg-3 mg (2.5 mg base)/3 mL [facility] Solution for NebulizationDirections: 3 mL by inhalation every four hours PRN shortness of breath hydrOXYzine HCl 25 mg [facility] TabletDirections: 1 tablet [facility] oral daily at bedtime Prednisone 20 MG Oral [facility] 200 ACTUAT Albuterol 0.09 Sa int Sukumar MG/ACTUAT Metered Dose Medic [facility] Inhaler Sertraline 50 MG Oral [facility] Tablet [facility] 24 HR Bupropion [place] s Hydrochloride 300 MG [facility] Extended Release Oral Tablet
--- NOTE | 2019-11-03 23:16 | PN ---
Teaching Attending Note Name of Resident: Noris Mcgovern ATTENDING PHYSICIAN STATEMENT I saw and evaluated the patient. I reviewed the resident's note and discussed the case with the resident. I agree with the resident's findings and plan as documented. SUBJECTIVE: 34yoF with history of moderate persistent asthma, active tobacco use, anxiety, and depression who presents with 4 days of shortness of breath and wheezing. Denies history of intubation but does have exacerbations about once a year when the weather gets cold. Also with recent URI. Does not use her controller inhaler because it makes her feel nauseous. Has been using her albuterol without improvement. Patient received Duoneb x2 and dexamethasone 10mg by EMS en route to the ED. She was hypoxic on arrival to 92% on room air with diffuse wheezing. Labs notable for WBC 12.9. CXR without acute findings. Doppler BLE was negative for DVT. Patient received additional Duoneb and albuterol as well as magnesium and 1L LR bolus with mild improvement. ROS (+) palpitations, SOB, wheezing (-) chest pain, fever, chills, cough OBJECTIVE: Vital Signs (72 hours) 11/03/19 18:28 Temperature 98.8 F Pulse Rate 121 H Respiratory 22 H Rate Blood Pressure 113/75 O2 Sat by Pulse 94 L Oximetry (%) EXAM Gen: awake, alert, NAD CV: regular, tachycardic Resp: Unlabored. Diffuse wheezing, no rales/rhonchi. Abd: SOft, NT, ND Ext: no edema Derm: no rashes Psych: AOx3, appropriate mood/affect Laboratory Results - last 24 hr 11/03/19 11/03/19 11/03/19 19:05 19:05 19:05 WBC 12.9 H RBC 4.93 Hgb 14.4 Hct 42.9 MCV 87.0 MCH 29.3 MCHC 33.6 RDW 14.8 Plt Count 188 MPV 10.6 Absolute Neuts (auto) 10.0 H Neutrophils % 77.3 Lymphocytes % 13.9 Monocytes % 4.5 Eosinophils % 3.6 Basophils % 0.7 Nucleated RBC % 0 Sodium 141 Potassium 3.6 Chloride 106 Carbon Dioxide 29 Anion Gap 5 L BUN 15.6 Creatinine 0.8 Est GFR (CKD-EPI)AfAm 109.93 Est GFR (CKD-EPI)NonAf 94.85 Random Glucose 99 Calcium 8.1 L Total Bilirubin 0.2 AST 58 H ALT 84 H Alkaline Phosphatase 159 H Total Protein 6.9 Albumin 3.4 Serum , Qual Negative Imaging, EKG reviewed in chart ASSESSMENT AND PLAN: 34yoF with history of moderate persistent asthma, active tobacco use, anxiety, and depression who presents with acute asthma exacerbation. Acute asthma exacerbation Diffuse wheezing on exam without respiratory distress - albuterol neb 2.5mg q4h PRN - prednisone 40mg daily - O2 NC PRN - encouraged consistent controller inhaler use on discharge Tobacco use Patient declines nicotine replacement therapy - tobacco cessation encouraged DVT ppx: Lovenox subq
--- OUTSIDE RECORDS SUMMARY | 2019-11-03 23:37 | XMS ---
:1985 Author Organization [facility] Care Team Providers Name Role Phone ED [...] is protected by Article 27-F of the [facility] Public Health law. If you continue you may haveaccess to information: Regarding HIV / AIDS; Provided by facilities licensed or operated by the [facility] Office of Mental Health; or Provided by the [facility] Office for People With Developmental Disabilities. If such information is present, then the following [facility] mandated warning applies: This information has been [...] law may result in a fine or correction sentence or both. A general authorization for the release of medical or other information is NOT sufficient authorization for further disclosure. Allergies and Adverse Reactions Type Description Substance Reaction Status Data Source(s ) No Known No Known Allergies No Known eCW3 ( [place] [facility]) No Known No Known Allergies No Known eCW2 ( [place] All[facility] Allergies [facility]) No Known No Known Allergies No known eCW3 ( [place] Allergies allergies [facility] ([facility]) [facility]) Encounters Encounter Providers Location Date Indications Data Source(s ) Inpatient Attender: Clarice H-HAL6 12/17/2018 [facility] JohnathonyAttender: 02:53:00 PM EST [facility] 12/20/2018 DANIELEGOAttender: 04:40:00 PM EST STAFF ED STAFF PHYSICIANAdmitter: CHET Valentinferjankir: CHET PADILLA Patient discharged. Outpatient [facility] 11/13/2018 eCW3 ([facility] A28 12:00:00 AM EDT [facility] - 11/13/2018 Care) 12:00:00 AM EDT Outpatient [facility] 04/06/2018 eCW3 ([facility] A28 12:00:00 AM EST [facility] - 04/06/2018 Care) 12:00:00 AM EST [facility] 01/07/2018 eCW2 ([facility] 12:00:00 AM EST [facility]) Outpatient 12/31/2017 NETSMART 05:00:00 AM EST [facility] 12/31/2017 Rest[facility] 05:00:00 AM [facility]) [facility] 12/12/2017 eCW2 ([facility] 12:00:00 AM T [facility]) Outpatient 12/04/2017 NETSMART 04:00:00 AM EDT ([facility]) [facility] 12/04/2017 eCW2 ([facility] 12:00:00 AM EDT [facility]) [facility] 12/01/2017 eCW2 ([facility] 12:00:00 AM EDT [facility]) [facility] 11/20/2017 eCW2 ([facility] 12:00:00 AM EDT [facility]) Emergency Attender: ED H 11/14/2017 [facility] STAFF 04:42:00 PM EDT Medical C enter PHYSICIANAdmitte r: ED STAFF PHYSICIAN [facility] 10/21/2017 eCW2 ([facility] 12:00:00 AM EDT [facility]) Outpatient 09/29/2017 NETSMART 04:00:00 AM EDT ([facility] 12/04/2017 Rest[facility] 04:00:00 AM EDT Community Services) [facility] 08/28/2017 eCW2 ([facility] 12:00:00 AM EDT [facility]) [facility] 08/14/2017 eCW2 ([facility] 12:00:00 AM EDT [facility]) [facility] 06/27/2017 eCW2 [facility] 12:00:00 AM EDT [facility]) [facility] 06/20/2017 eCW2 ([facility] 12:00:00 AM EDT [facility]) [facility] 06/17/2017 eCW2 ([facility] 12:00:00 AM EDT [facility]) [facility] 06/17/2017 eCW2 ([facility] 12:00:00 AM EDT [facility]) [facility] 12/31/2016 eCW2 ([facility] 12:00:00 AM EST [facility]) [facility] 09/26/2016 eCW2 ([facility] 12:00:00 AM EDT [facility]) [facility] 09/26/2016 eCW2 ([facility] 12:00:00 AM EDT [facility]) [facility] 05/28/2016 eCW2 ([facility] 12:00:00 AM EDT [facility]) [facility] 02/21/2016 eCW2 ([facility] 12:00:00 AM EST [facility]) [facility] 01/25/2016 eCW2 ([facility] 12:00:00 AM EST [facility]) [facility] 12/29/2015 eCW2 ([facility] 12:00:00 AM EST [facility]) [facility] 11/17/2015 eCW2 ([facility] 12:00:00 AM EDT [facility]) [facility] 08/03/2015 eCW2 ([facility] 12:00:00 AM EDT [facility]) [facility] 08/01/2015 eCW2 ([facility] 12:00:00 AM EDT [facility]) [facility] 07/05/2015 eCW2 ([facility] 12:00:00 AM EDT [facility]) [facility] 07/03/2015 eCW2 ([facility] 12:00:00 AM EDT [facility]) [facility] 07/01/2015 eCW2 ([facility] 12:00:00 AM EDT [facility]) [facility] 06/12/2015 eCW2 ([facility] 12:00:00 AM EDT [facility]) [facility] 06/12/2015 eCW2 ([facility] 12:00:00 AM EDT [facility]) [facility] 05/22/2015 eCW2 ([facility] 12:00:00 AM EDT [facility]) [facility] 04/03/2015 eCW2 ([facility] 12:00:00 AM EST [facility]) [facility] 03/30/2015 eCW2 ([facility] 12:00:00 AM EST [facility]) [facility] 02/01/2015 eCW2 ([facility] 12:00:00 AM EST [facility]) [facility] 01/31/2015 eCW2 ([facility] 12:00:00 AM EST [facility]) [facility] 01/19/2015 eCW2 ([facility] 12:00:00 AM EST [facility]) [facility] 01/12/2015 eCW2 ([facility] 12:00:00 AM EST [facility]) [facility] 10/03/2014 eCW2 ([facility] 12:00:00 AM EDT [facility]) [facility] 08/25/2014 eCW2 ([facility] 12:00:00 AM EDT [facility]) [facility] 05/27/2014 eCW2 ([facility] 12:00:00 AM EDT [facility]) [facility] 12/31/2013 eCW2 ([facility] 12:00:00 AM EST [facility]) [facility] 10/22/2013 eCW2 ([facility] 12:00:00 AM EDT [facility]) [facility] 09/30/2013 eCW2 ([facility] 12:00:00 AM EDT [facility]) [facility] 09/09/2013 eCW2 ([facility] 12:00:00 AM EDT [facility]) [facility] 08/27/2013 eCW2 ([facility] 12:00:00 AM EDT [facility]) [facility] 07/09/2013 eCW2 ([facility] 12:00:00 AM EDT [facility]) [facility] 07/02/2013 eCW2 ([facility] 12:00:00 AM EDT [facility]) [facility] 07/02/2013 eCW2 ([facility] 12:00:00 AM EDT [facility]) [facility] 06/21/2013 eCW2 ([facility] 12:00:00 AM EDT [facility]) [facility] 12/16/2012 eCW2 ([facility] 12:00:00 AM EST [facility]) [facility] 12/15/2012 eCW2 ([facility] 12:00:00 AM EST [facility]) [facility] 11/05/2012 eCW2 ([facility] 12:00:00 AM EDT [facility]) [facility] 10/16/2012 eCW2 ([facility] 12:00:00 AM EDT [facility]) [facility] 10/15/2012 eCW2 ([facility] 12:00:00 AM EDT [facility]) [facility] 10/15/2012 eCW2 ([facility] 12:00:00 AM EDT [facility]) [facility] 10/01/2012 eCW2 ([facility] 12:00:00 AM EDT [facility]) [facility] 09/21/2012 eCW2 ([facility] 12:00:00 AM EDT [facility]) [facility] 09/20/2012 eCW2 ([facility] 12:00:00 AM EDT [facility]) [facility] 09/18/2012 eCW2 ([facility] 12:00:00 AM EDT [facility]) [facility] 08/27/2012 eCW2 ([facility] 12:00:00 AM EDT [facility]) [facility] 06/18/2012 eCW2 ([facility] 12:00:00 AM EDT [facility]) [facility] 05/14/2012 eCW2 ([facility] 12:00:00 AM EDT [facility]) [facility] 04/20/2012 eCW2 ([facility] 12:00:00 AM EDT [facility]) [facility] 03/12/2012 eCW2 ([facility] 12:00:00 AM EST [facility]) [facility] 03/03/2012 eCW2 ([facility] 12:00:00 AM EST [facility]) [facility] 02/21/2012 eCW2 ([facility] 12:00:00 AM EST [facility]) [facility] 02/12/2012 eCW2 ([facility] 12:00:00 AM EST [facility]) [facility] 01/21/2012 eCW2 ([facility] 12:00:00 AM EST [facility]) [facility] 01/17/2012 eCW2 ([facility] 12:00:00 AM EST [facility]) [facility] 01/06/2012 eCW2 ([facility] 12:00:00 AM EST [facility]) [facility] 11/19/2011 eCW2 ([facility] 12:00:00 AM EDT [facility]) [facility] 09/18/2011 eCW2 ([facility] 12:00:00 AM EDT [facility]) [facility] 09/13/2011 eCW2 ([facility] 12:00:00 AM EDT [facility]) [facility] 09/12/2011 eCW2 ([facility] 12:00:00 AM EDT [facility]) [facility] 06/27/2011 eCW2 ([facility] 12:00:00 AM EDT [facility]) [facility] 06/19/2011 eCW2 ([facility] 12:00:00 AM EDT [facility]) [facility] 06/07/2011 eCW2 ([facility] 12:00:00 AM EDT [facility]) [facility] 05/31/2011 eCW2 ([facility] 12:00:00 AM EDT [facility]) [facility] 05/10/2011 eCW2 ([facility] 12:00:00 AM EDT [facility]) [facility] 05/10/2011 eCW2 ([facility] 12:00:00 AM EDT [facility]) [facility] 05/02/2011 eCW2 ([facility] 12:00:00 AM EDT [facility]) [facility] 05/01/2011 eCW2 ([facility] 12:00:00 AM EDT [facility]) [facility] 03/27/2011 eCW2 ([facility] 12:00:00 AM EST [facility]) [facility] 03/22/2011 eCW2 ([facility] 12:00:00 AM EST [facility]) [facility] 01/24/2011 eCW2 ([facility] 12:00:00 AM EST [facility]) [facility] 12/27/2010 eCW2 ([facility] 12:00:00 AM EST [facility]) [facility] 12/03/2010 eCW2 ([facility] 12:00:00 AM EDT [facility]) [facility] 10/25/2010 eCW2 ([facility] 12:00:00 AM EDT [facility]) [facility] 09/03/2010 eCW2 ([facility] 12:00:00 AM EDT [facility]) [facility] 07/16/2010 eCW2 ([facility] 12:00:00 AM EDT [facility]) [facility] 05/31/2010 eCW2 ([facility] 12:00:00 AM EDT [facility]) [facility] 04/03/2010 eCW2 ([facility] 12:00:00 AM EST [facility]) [facility] 03/29/2010 eCW2 ([facility] 12:00:00 AM EST [facility]) [facility] 03/29/2010 eCW2 ([facility] 12:00:00 AM EST [facility]) [facility] 12/27/2009 eCW2 ([facility] 12:00:00 AM EST [facility]) [facility] 12/22/2009 eCW2 ([facility] 12:00:00 AM EST [facility]) [facility] 12/08/2009 eCW2 ([facility] 12:00:00 AM EDT [facility]) [facility] 11/23/2009 eCW2 ([facility] 12:00:00 AM EDT [facility]) [facility] 11/17/2009 eCW2 ([facility] 12:00:00 AM EDT [facility]) [facility] 11/13/2009 eCW2 ([facility] 12:00:00 AM EDT [facility]) [facility] 09/11/2009 eCW2 ([facility] 12:00:00 AM EDT [facility]) [facility] 09/01/2009 eCW2 ([facility] 12:00:00 AM EDT [facility]) [facility] 06/07/2009 eCW2 ([facility] 12:00:00 AM EDT [facility]) [facility] 05/19/2009 eCW2 ([facility] 12:00:00 AM EDT [facility]) [facility] 05/01/2009 eCW2 ([facility] 12:00:00 AM EDT [facility]) [facility] 04/27/2009 eCW2 ([facility] 12:00:00 AM EDT [facility]) [facility] 03/17/2009 eCW2 ([facility] 12:00:00 AM EST [facility]) [facility] 03/09/2009 eCW2 ([facility] 12:00:00 AM EST [facility]) [facility] 12/07/2008 eCW2 ([facility] 12:00:00 AM EDT [facility]) [facility] 09/06/2008 eCW2 ([facility] 12:00:00 AM EDT [facility]) [facility] 06/07/2008 eCW2 ([facility] 12:00:00 AM EDT [facility]) Immunizations Vaccine Date Status Description Data Source(s) MMR 02/25/2019 completed eCW3 ([facility] 11:29:00 AM EST Health Care) pneumococcal 12/19/2018 [facility] polys[facility] PPV23 06:57:00 AM EST Cent er New in 2011. IIV4 11/20/2017 completed eCW3 ([facility] 04:45:00 PM EDT Health Care) New in 2011. IIV4 11/20/2017 completed eCW2 ([facility] 04:45:00 PM EDT Health Care) Hep A-Hep B 07/02/2013 completed eCW3 ([facility] 02:54:00 PM EDT Health Care) Hep A-Hep B 09/18/2012 completed eCW3 ([facility] 03:43:27 PM EDT Health Care) Hep A-Hep B 02/21/2012 completed eCW3 ([facility] 09:21:50 PM EST Health Care) Tdap 03/22/2011 completed eCW3 ([facility] 07:53:58 PM [facility]) pneumococcal 03/22/2011 completed eCW3 ([facility]dra polysaccharide PPV23 07:53:52 PM [facility]) IIV3. This is one of two 01/24/2011 completed eCW 3 ([facility] codes replacing CVX 15, 04:02:17 PM EST [facility]) which is being retired. Novel [id number] completed eCW3 ([facility]) Medications Medication Brand Start Product Dose Route Administrative Pharmacy [facility] Indications Reaction Description Data Name Date Form Instructions Instructions Source(s) 24 HR [facility] .0 Oral active NETSMART Bupropion yandel 2020 Table (Mic Hydrochlori XL 04:00: t er Sabianist adry de 300 MG 00 AM Community Extended EDT Services) Release Oral Tablet [Wellbutrin ] olanzapine OLANZa .0 Oral active NET SMART 15 MG Oral pine 2020 Table ([facility] Tablet 04:00: t er Restorationist 00 AM Community EDT Services) 24 HR [facility] .0 Oral active NETSMART Bupropion yandel 2020 Table (Mic guzmán Hydrochlori XL 04:00: t er Sabianist adry de 150 MG 00 AM Community Extended EDT Services) Release Oral Tablet [Wellbutrin ] olanzapine OLANZa .0 Oral active NET SMART 15 MG Oral pine 2020 Table ([facility] Tablet 04:00: t er Restorationist 00 AM Community EDT Services) 24 HR [facility] .0 Oral active NETSMART Bupropion yandel 2020 Table (Gennaroerin guzmán Hydrochlori XL 04:00: t er Sabianist adry de 150 MG 00 AM Community Extended EDT Services) Release Oral Tablet [Wellbutrin ] 24 HR [facility] 1.0 Oral active NETSMART Bupropion yandel 2020 Table (Gennaroerin guzmán Hydrochlori XL 04:00: t er Sabianist adry de 300 MG 00 AM Community Extended EDT Services) Release Oral Tablet [Wellbutrin ] 24 HR [facility] 1.0 Oral active NETSMART Bupropion yandel 2020 Table (Gennaroerin ramirez Hydrochlori XL 04:00: t er Sabianist adry de 300 MG 00 AM Community Extended EDT Services) Release Oral Tablet [Wellbutrin ] 24 HR [facility] 1.0 Oral active NETSMART Bupropion yandel 2019 Table (Mic guzmán Hydrochlori XL 04:00: t er Sabianist adry de 150 MG 00 AM Community Extended EDT Services) Release Oral Tablet [Wellbutrin ] olanzapine OLANZa .0 Oral active NET SMART 15 MG Oral pine 2019 Table ([facility] Tablet 04:00: t er Restorationist 00 AM Community EDT Services) Albuterol Ipratr 07/27/ 3.0 active Ipratropi um- eCW3 0.833 MG/ML opium- 2020 {ml} Albuterol ( [facility] / [place] 12:00: 0.5-2.5 (3) Rive r Ipratropium rol 00 AM MG/3ML [facility] 0.5-2. EDT Care) 0.167 MG/ML 5 (3) [...] Table ([facility] Tablet 04:00: t er Restorationist 00 AM Community EDT Services) 24 HR [facility] .0 Oral active NETSMART Bupropion yandel 2019 Table (Mic guzmán Hydrochlori XL 04:00: t er Sabianist adry de 150 MG 00 AM Community Extended EDT Services) Release Oral Tablet [Wellbutrin ] 24 HR [facility] 1.0 Oral active NETSMART Bupropion yandel 2019 Table (Mic guzmán Hydrochlori XL 04:00: t er Sabianist adry de 300 MG 00 AM Community Extended EDT Services) Release Oral Tablet [Wellbutrin ] olanzapine OLANZa 06/01/ 1.0 Oral active NET SMART 10 MG Oral pine 2020 Table ([facility] Tablet 04:00: t er Restorationist 00 AM Community EDT Services) 24 HR [facility] 1.0 Oral active NETSMART Bupropion yandel 2019 Table (Mic guzmán Hydrochlori XL 04:00: t er Sabianist adry de 300 MG 00 AM Community Extended EDT Services) Release Oral Tablet [Wellbutrin ] 24 HR [facility] 1.0 Oral active NETSMART Bupropion yandel 2019 Table (Mic guzmán Hydrochlori XL 04:00: t er Sabianist adry de 150 MG 00 AM Community Extended EDT Services) Release Oral Tablet [Wellbutrin ] 24 HR [facility] 1.0 Oral active NETSMART Bupropion yandel 2019 Table (Mic guzmán Hydrochlori XL 04:00: t er Sabianist adry de 300 MG 00 AM Community Extended EDT Services) Release Oral Tablet [Wellbutrin ] 24 HR [facility] 1.0 Oral active NETSMART Bupropion yandel 2019 Table (Mic guzmán Hydrochlori XL 04:00: t er Sabianist adry de 150 MG 00 AM Community Extended EDT Services) Release Oral Tablet [Wellbutrin ] lamotrigine lamoTR .0 Oral active NE TSMART Igine 2019 Table (Mict 04:00: t er Restorationist 00 AM Community EDT Services) 24 HR [facility] 1.0 Oral active NETSMART Bupropion yandel 2019 Table (Mic guzmán Hydrochlori XL 04:00: t er Sabianist adry de 150 MG 00 AM Community Extended EDT Services) Release Oral Tablet [Wellbutrin ] 24 HR [facility] 1.0 Oral active NETSMART Bupropion yanedl 2019 Table (Mic guzmán Hydrochlori XL 04:00: t er Sabianist adry de 300 MG 00 AM Community Extended EDT Services) Release Oral Tablet [Wellbutrin ] 24 HR [facility] 1.0 Oral active NETSMART Bupropion yandel 2019 Table (Mic guzmán Hydrochlori XL 05:00: t er Sabianist adry de 300 MG 00 AM Community Extended EST Services) Release Oral Tablet [Wellbutrin ] 24 HR [facility] 1.0 Oral active NETSMART Bupropion yandel 2018 Table (Mic guzmán Hydrochlori XL 05:00: t er Sabianist adry de 300 MG 00 AM Community Extended EST Services) Release Oral Tablet [Wellbutrin ] 24 HR [facility] 1.0 Oral active NETSMART Bupropion yandel 2019 Table ([facility] Hydrochlori XL 04:00: t er Sabianist adry de 300 MG 00 AM Community Extended EDT Services) Release Oral Tablet [Wellbutrin ] Sertraline Sertra 1.0 Oral active NET SMART 50 MG Oral line 2019 Table ([facility] st Tablet 04:00: t er Restorationist 00 AM Community EDT Services) 11/23/ ORAL active NETSMART 2019 ([facility] 04:00: er Restorationist 00 AM Community EDT Services) 11/23/ ORAL active NETSMART 2019 ([facility] 04:00: er Restorationist 00 AM Community EDT Services) 09/21/ ORAL complet NETSMART 2019 ed ([facility] 04:00: er Restorationist 00 AM Community EDT Services) 09/21/ ORAL complet NETSMART 2019 ed ([facility] 04:00: er Restorationist 00 AM Community EDT Services) 08/10/ ORAL complet NETSMART 2019 ed ([facility] 04:00: er Restorationist 00 AM Community EDT Services) 08/10/ ORAL complet NETSMART 2019 ed ([facility] 04:00: er Restorationist 00 AM Community EDT Services) 06/30/ ORAL complet NETSMART 2019 ed ([facility] 04:00: er Restorationist 00 AM Community EDT Services) 05/29/ ORAL complet NETSMART 2019 ed ([facility] 04:00: er Restorationist 00 AM Community EDT Services) Hydroxyzine hydrOX 04/06/ NOT complet N ETSMART Pamoate 25 Yzine 2019 APPLIC ed ([facility] hest MG Oral Pamoat 06:00: ABLE er Jewis h Capsule e 00 AM Community EST Services) 200 ACTUAT [place] 04/06/ NOT active NET SMART Albuterol rol 2019 APPLIC ([facility] st 0.09 06:00: ABLE er Restorationist MG/ACTUAT 00 AM Community Metered EST Services) Dose Inhaler Cholecalcif Vitami 04/06/ NOT active NE TSMART terra 400 n D 2019 APPLIC ([facility] UNT Oral 06:00: ABLE er Restorationist Capsule 00 AM Community EST Services) Cyclobenzap Cyclob 04/06/ NOT active NE TSMART rine enzapr 2018 APPLIC ([facility] hydrochlori ine 06:00: ABLE er Sabianist adry de 10 MG HCl 00 AM [...] 24/ 1.0 active VITAMIN D eCW3 rol 82109 N D 2014 {caps (ERGOCALCIFE ( [facility] UNT Oral (ERGOC 12:00: ule} ROL) 79584 R iver Capsule ALCIFE 00 AM unit Health VITAMIN D ROL) EST Care) (ERGOCALCIF 62817 TERRA) 12870 unit unit Vitamin D UNK 02/02/ active 1 capsule e CW2 82494 unit 2014 ([facility] 12:00: [place] 00 AM Health EST Care) VITAMIN D UNK 02/02/ 1.0 suspend VITAMIN D eCW3 (ERGOCALCIF 2014 {caps ed (ERGOCALCIFE ([facility] TERRA) 65197 12:00: ule} ROL) 30777 [place] unit 00 AM unit Health EST [...] [Ventolin] Ventolin HFA 108 (90 Base) MCG/ACT DEPO-INSIDE SALES ADMINISTRATOR UNK active DEPO-INSIDE SALES ADMINISTRATOR A eCW3 A 150 MG/ML 150 MG/ML ([facility]) Cyclobenzap Cyclob 1.0 suspend Cycloben zapr eCW3 [...] Rusty t 50 MG Oral line ed S[facility] Tablet 50 mg Medical sertraline Tablet Center [...] name Policy type Policy ID Covered Covered green party's Policy P jorge / Coverage green party ID relationship to Merino Inf ormation type merino [facility] [id number] 100 HEALTH NON CAP [facility] [id number] 01 [id number] 100 CARE [facility] [id number] 100 [facility] [id number] 01 [id number] 100 W [id number] "" W [id number] Problems, Conditions, and Diagnoses Code Display Name Description Problem Type Effective Data Dates Source(s) N92.1 Breakthrough Breakthrough Problem 08/18/2019 eCW3 ([facility] on bleeding on bleeding on 12:00:00 AM [facility] Depo-Provera Depo-Provera EDT Care) J45.41 Moderate Moderate Problem 07/28/2019 eCW3 ([facility] persistent asthma persistent asthma 12:00:00 AM [facility] with exacerbation with exacerbation EDT Care) J45.20 Mild intermittent Mild intermittent Problem 07/20/2019 eCW3 ([place] asthma without asthma without 12:00:00 AM [facility] complication complication EDT Care) E55.9 Vitamin D Vitamin D Problem 03/04/2019 eCW3 ([place] deficiency disease deficiency disease 12:00:00 AM [facility] EST Care) [id number] Specific reading Specific reading Complaint 11/17/2018 NE TSMART disorder disorder 05:05:00 PM ([facility]) 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 05:05:00 PM ([facility] impairment of and impairment of [facility] mainly pragmatic mainly pragmatic [facility] language language Services) J45.30 Mild persistent Mild persistent Problem 11/13/2018 eCW3 ([place] asthma without asthma without 12:00:00 AM [facility] complication complication EDT Care) 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 Services) E78.2 Mixed Mixed Problem 04/06/2018 eCW3 ([place] hyperlipidemia hyperlipidemia 12:00:00 AM [facility] EST Care) J41.0 Smokers' cough Smokers' cough Problem 04/06/2018 eCW3 ( [place] 12:00:00 AM [facility] EST Care) E78.2 Mixed Mixed Problem 04/06/2018 eCW3 ([place] hyperlipidemia hyperlipidemia 12:00:00 AM [facility] EST Care) J41.0 Smokers' cough Smokers' cough Problem 04/06/2018 eCW3 ( [place] 12:00:00 AM [facility] EST Care) G47.00 Insomnia Insomnia Problem 11/20/2017 eCW3 ([place] 12:00:00 AM [facility] EDT Care) G47.00 Insomnia Insomnia Problem 11/20/2017 eCW2 ([facility] 12:00:00 AM [facility] EDT Care) G47.00 Insomnia Insomnia Problem 11/20/2017 eCW3 ([place] 12:00:00 AM [facility] EDT Care) [id number] Generalized Generalized Complaint 09/29/2017 NETSMART anxiety disorder anxiety disorder 04:00:00 [facility] 05/11/2018 [facility] 05:35:00 PM Services) EDT F41.9 Anxiety Anxiety Problem 08/21/2017 eCW3 ([place] 12:00:00 AM [facility] EDT Care) F32.9 Major depression, Major depressive Problem 08/21/2017 e CW3 ([place] single episode disorder, single 12:00:00 AM [facility] episode, EDT Care) unspecified F32.9 Major depression, Major depressive Problem 08/21/2017 e CW2 ([place] single episode disorder, single 12:00:00 AM [facility] episode, EDT Care) unspecified F41.9 Anxiety Anxiety Problem 08/21/2017 eCW2 ([place] 12:00:00 AM [facility] EDT Care) F32.9 Major depression, Major depressive Problem 08/21/2017 e CW3 ([place] single episode disorder, single 12:00:00 AM [facility] episode, EDT Care) unspecified F41.9 Anxiety Anxiety Problem 08/21/2017 eCW3 ([facility] 12:00:00 AM [facility] EDT Care) Z71.7 Counseling for HIV Counseling for HIV Problem 8 eCW3 ([place] Test Test 12:00:00 AM [facility] EDT Care) R53.83 Fatigue, Fatigue, Problem 06/20/2017 eCW3 ([place] unspecified type unspecified type 12:00:00 AM [facility] EDT Care) F43.10 PTSD PTSD Problem 06/20/2017 eCW3 ([place] (post-traumatic (post-traumatic 12:00:00 AM [facility] stress disorder) stress disorder) EDT Ca re) F43.10 PTSD PTSD Problem 06/20/2017 eCW2 ([facility] (post-traumatic (post-traumatic 12:00:00 AM [facility] stress disorder) stress disorder) EDT Ca re) Z71.7 Counseling for HIV Counseling for HIV Problem 8 eCW2 ([place] Test Test 12:00:00 AM [facility] EDT Care) R53.83 Fatigue, Fatigue, Problem 06/20/2017 eCW2 ([place] unspecified type unspecified type 12:00:00 AM [facility] EDT Care) R53.83 Fatigue, Fatigue, Problem 06/20/2017 eCW3 ([place] unspecified type unspecified type 12:00:00 AM [facility] EDT Care) Z71.7 Counseling for HIV Counseling for HIV Problem 8 eCW3 ([place] Test Test 12:00:00 AM [facility] EDT Care) F43.10 PTSD PTSD Problem 06/20/2017 eCW3 ([place] (post-traumatic (post-traumatic 12:00:00 AM [facility] stress disorder) stress disorder) EDT Ca re) R79.89 Elevated liver Elevated liver Problem 07/03/2015 eCW3 ( [place] enzymes level function tests 12:00:00 AM [facility] EDT Care) R79.89 Elevated liver Elevated liver Problem 07/03/2015 eCW2 ( [place] enzymes level function tests 12:00:00 AM [facility] EDT Care) R79.89 Elevated liver Elevated liver Problem 07/03/2015 eCW3 ( [place] enzymes level function tests 12:00:00 AM [facility] EDT Care) R51 Headache Headache Problem 06/12/2015 eCW3 ([place] 12:00:00 AM [facility] EDT Care) H53.8 Blurring of visual Blurred vision Problem 06/12/2015 eC W3 ([facility] image 12:00:00 AM [facility] EDT Care) Z30.9 Contraception care Contraception Problem 06/12/2015 eCW 3 ([place] management management 12:00:00 AM [facility] EDT Care) Z32.00 test Encounter for Problem 06/12/2015 eCW3 (H udson equivocal test, 12:00:[address] [facility] alth result unknown EDT Care) E55.9 Vitamin D Vitamin D Problem 06/12/2015 eCW2 ([place] deficiency deficiency 12:00:00 AM [facility] EDT Care) R51 Headache Headache Problem 06/12/2015 eCW2 ([facility] 12:00:00 AM [facility] EDT Care) Z32.00 test Encounter for Problem 06/12/2015 eCW2 (H udson equivocal test, 12:00:00 AM [facility]th result unknown EDT Care) Z30.9 Contraception care Contraception Problem 06/12/2015 eCW 2 ([place] management management 12:00:00 AM [facility] EDT Care) H53.8 Blurring of visual Blurred vision Problem 06/12/2015 eC W2 ([facility] image 12:00:00 AM [facility] EDT Care) Z30.9 Contraception care Contraception Problem 06/12/2015 eCW 3 ([place] management management 12:00:00 AM [facility] EDT Care) E55.9 Vitamin D Vitamin D Problem 06/12/2015 eCW3 ([place] deficiency deficiency 12:00:00 AM [facility] EDT Care) Z32.00 test Encounter for Problem 06/12/2015 eCW3 (H udson equivocal test, 12:00:00 AM [facility] result unknown EDT Care) H53.8 Blurring of visual Blurred vision Problem 06/12/2015 eC W3 ([facility] image 12:00:00 AM [facility] EDT Care) R51 Headache Headache Problem 06/12/2015 eCW3 ([place] 12:00:00 AM [facility] EDT Care) Z00.00 Adult health Annual physical Problem 01/31/2015 eCW3 (H udson examination exam Age 18+ 12:00:00 AM [facility] th EST Care) F17.211 Tobacco user Nicotine Problem 01/31/2015 eCW3 ([place] dependence, 12:00:00 AM [facility] cigarettes, in EST Care) remission Z13.9 Screening Encounter for Problem 01/31/2015 eCW3 ([facility]udso n procedure screening, 12:00:00 AM [facility] unspecified EST Care) M54.9 Back pain Back pain Problem 01/31/2015 eCW3 ([place] 12:00:00 AM [facility] EST Care) J45.909 Asthma Asthma Problem 01/31/2015 eCW3 ([place] 12:00:00 AM [facility] EST Care) F17.211 Tobacco user Nicotine Problem 01/31/2015 eCW2 ([place] dependence, 12:00:00 AM [facility] cigarettes, in EST Care) remission M54.9 Back pain Back pain Problem 01/31/2015 eCW2 ([place] 12:00:00 AM [facility] EST Care) J45.909 Asthma Asthma Problem 01/31/2015 eCW2 ([place] 12:00:00 AM [facility] EST Care) Z00.00 Adult health Annual physical Problem 01/31/2015 eCW2 (H udson examination exam Age 18+ 12:00:00 AM [facility] EST Care) Z13.9 Screening Encounter for Problem 01/31/2015 eCW2 ([place]udso n procedure screening, 12:00:00 AM [facility] unspecified EST Care) Z00.00 Adult health Annual physical Problem 01/31/2015 eCW3 (H udson examination exam Age 18+ 12:00:00 AM [facility] EST Care) F17.211 Tobacco user Nicotine Problem 01/31/2015 eCW3 ([place] dependence, 12:00:00 AM [facility] cigarettes, in EST Care) remission Z13.9 Screening Encounter for Problem 01/31/2015 eCW3 ([place] n procedure screening, 12:00:00 AM [facility] unspecified EST Care) E66.9 Obesity Obesity Problem [...] EST Care) F17.210 Nicotine NICOTINE Diagnosis 12/20/2018 [facility] dependence, DEPENDENCE, 04:40:00 PM Medical cigarettes, CIGARETTES, EST Center uncomplicated UNCOMPLICATED E83.42 Hypomagnesemia HYPOMAGNESEMIA Diagnosis 12/20/2018 [facility] 04:40:00 PM Medical EST Center J45.901 Unspecified asthma UNSPECIFIED ASTHMA Diagnosis 9 [facility] with (acute) WITH (ACUTE) 02:53:00 PM Medical exacerbation EXACERBATION EST Center Surgeries/Procedures Procedure Description Date Indications Data Source(s) IM ADM THRU 18YR ANY RTE 11/20/2017 eCW 2 (Qwbcg 1ST/ONLY COMPT VAC/TOX 12:00:00 AM EDT [facility] Care) A-Influenza Quadrivalent 11/20/2017 eCW 2 ([facility]/OR CONVEY OF 11/20/2017 eCW2 (H [employer] SPEC FOR TR OFFICE TO 12:00:00 AM EDT [facility] Care) LAB Results ID Date Data Source [id number] 07/28/2019 12:00:00 AM EDT [facility] Name Value Range Interpretation Code Description Data Tracy rce(s) Supporting Document(s ) 2019-nCoV [facility] RNA XXX JAZZY+probe- Imp This lab was ordered by [employer] Knight and reported by [employer]. ID Date Data Source Liver 12/20/2018 05:25:00 AM [facility] Profile.[id number] Name Value Range Interpretation Description Data Sup [...] s"> (38-126 IU/L)</content> ID Date Data Source HematologyRou.[id number] 12/20/2018 05:25:00 AM ADRIAN Durbin [facility] 0500 Name Value Range Interpretation Description [...] (< 1 %)</content> ID Date Data Source GFR(Creatinine).[id number] 12/20/2018 05:25:00 AM [facility] 0-0500 Name Value Range Interpretation Code Description Data Tracy rce(s) Supporting Document(s ) UNK > 60 <content [facility] styleCode="Bold"> Medical Cent er EGFR </content>76 GFR<content styleCode="Italic s"> (> 60 GFR)</content> ID Date Data Source CHMROUTINECCDA.[id number] 12/20/2018 05:25:00 AM EST Ramakrishna nt [facility] -0500 Name Value Range Interpretation Description Data [...] (>= 1.0 )</content> ID Date Data Source [facility].[id number] 12/20/2018 05:25:00 AM ADRIAN Gant [facility] Name Value Range Interpretation Description Data Sup [...] MG/DL)</content> Alkaline 38-126 <content Saint phosphatase styleCode="Bold"> [facility] [Enzymatic Alkaline Medical activity/volume] Phosphatase (ALP) Cente [...] Data Source Liver 12/19/2018 05:52:00 AM EST [facility] Profile.[id number] Name Value Range Interpretation Description Data Sup [...] s"> (3.5-5.0 G/DL)</content> ID Date Data Source HematologyRou.[id number] 12/19/2018 05:52:00 AM ADRIAN Durbin [facility] 0500 Name Value Range Interpretation Description [...] (< 1 %)</content> ID Date Data Source GFR(Creatinine).[id number] 12/19/2018 05:52:00 AM EST Ramakrishna [facility] 0-0500 Name Value Range Interpretation Code Description Data Tracy rce(s) Supporting Document(s ) UNK > 60 <content [facility] styleCode="Bold"> Medical Cent er EGFR </content>87 GFR<content styleCode="Italic s"> (> 60 GFR)</content> ID Date Data Source [id number] 12/19/2018 05:52:00 AM ADRIAN montes [facility] -0500 Name Value Range Interpretation Description Data [...] (2.5-4.5 MG/DL)</conten t> ID Date Data Source [facility].[id number] 12/19/2018 05:52:00 AM EST [facility] [...] Above high <content Saint phosphatase normal styleCode="Bold"> [facility] [Enzymatic Alkaline Medical activity/volume] Phosphatase (ALP) Cente [...] Data Source Liver 12/18/2018 06:25:00 AM EST [facility] Profile.[id number] Name Value Range Interpretation Description Data Sup porting Code Source(s) Document(s ) Alkaline 38-126 Above high <content Saint phosphatase normal styleCode="Bold"> [facility] [Enzymatic Alkaline Medical activity/volume] Phosphatase (ALP) Cente [...] s"> (3.5-5.0 G/DL)</content> ID Date Data Source HematologyRou.[id number] 12/18/2018 06:25:00 AM ADRIAN Durbin [facility] 0500 Name Value Range Interpretation Description Data Sup porting Code Source(s) Document(s ) Leukocytes 4.4-11.0 <content Saint [#/volume] in styleCode="Bold [facility] Blood by ">White Blood Medical Automated count [...] (0-0.1 KCUMM)</content > ID Date Data Source GFR(Creatinine).[id number] 12/18/2018 06:25:00 AM ADRIAN [facility] 0-0500 Name Value Range Interpretation Code Description Data Tracy rce(s) Supporting Document(s ) UNK > 60 <content [facility] styleCode="Bold"> Medical Cent er EGFR </content>121 GFR<content styleCode="Italic s"> (> 60 GFR)</content> ID Date Data Source BRISSAOUTINECCDA.[id number] 12/18/2018 06:25:00 AM ADRIAN [facility] -0500 Name Value Range Interpretation Description [...] (1.6-2.3 MG/DL)</conten t> ID Date Data Source [facility].[id number] 12/18/2018 06:25:00 AM EST [facility] Name Value Range Interpretation Description [...] s"> (3.5-5.0 G/DL)</content> ID Date Data Source Urinalysis.[id number] 12/17/2018 08:18:00 PM ADRIAN Durbin [facility] 0 Name Value Range Interpretation Description Data Sup porting Code Source(s) Document(s ) Color of Urine YELLOW <content Saint styleCode="[facility] d">Color, Medical Urine Center </content>RED <content styleCode="Jaz lics"> (YELLOW )</content> UNK CLEAR <content Saint styleCode="[facility] d">Urine Medical Clarity Center </content>ANDRY R [...] by Test d">Urine Medical strip Specific Center [place] </content>>= 1.030 H<content styleCode="Jaz lics"> (1.015-1.025 )</content> [...] (NONE SEEN HPF)</content> ID Date Data Source HematologyRou.[id number] 12/17/2018 04:00:00 PM ADRIAN Ramakrishna [facility] 0500 Name Value Range Interpretation Description Data Sup porting Code Source(s) Document(s ) Erythrocytes 4.0-5.1 Above high <content Saint [#/volume] in normal styleCode="[place] [facility] Blood by ">Red Blood Medical Automated count [...] (0.0 KCUMM)</content > ID Date Data Source GFR(Creatinine).[id number] 12/17/2018 04:00:00 PM EST Ramakrishna nt [facility] 0-0500 Name Value Range Interpretation Code Description Data Tracy rce(s) Supporting Document(s ) UNK > 60 <content [facility] styleCode="Bold"> Medical Cent er EGFR </content>121 GFR<content styleCode="Italic s"> (> 60 GFR)</content> ID Date Data Source Coagulation 12/17/2018 04:00:00 PM [facility] Rout.[id number] EST Name Value Range Interpretation Description Data [...] cs"> (25.1-36.5 SEC)</content> ID Date Data Source [facility].[id number] 12/17/2018 04:00:00 PM EST [facility] Name Value Range Interpretation Description [...] Source COMPREHENSIVE METABOLIC 04/12/2018 02:56:37 AM eCW3 ([facility] (3427-2).13 EST Care) Name Value Range Interpretation Description Data Sup porting Code Source(s) Document(s ) Protein 7.5 Total Protein eCW3 [Mass/volume] in ([facility]) Globulin 3.0 Globulin eCW3 [Mass/volume] in ([facility]) Albumin/Globulin 1.5 A/G Ratio eCW3 [Mass Ratio] in ([facility] or [facility]) Sodium 140 Sodium eCW3 [Moles/volume] in ([facility]) Albumin 4.5 Albumin eCW3 [Mass/volume] in ([place] Serum or [facility]) Creatinine 0.81 Creatinine eCW3 [Mass/volume] in ([place] [facility] or [facility]) Carbon dioxide, 26 CO2 eCW3 total ([place] [Moles/volume] in [facility] Serum or Plasma Health Care) Potassium 4.0 Potassium eCW3 [Moles/volume] in ([place] Serum or [facility]) Chloride 100 Chloride eCW3 [Moles/volume] in ([place] Serum or [facility]) Urea nitrogen 12 BUN eCW3 [Mass/volume] in ([place] Serum or Plasma [facility]) Mycoplasma 14.8 BUN/Creat eCW3 pneumoniae DNA Ratio ([place] [Units/volume] in [facility] Blood by [facility] target Care) amplification method Glomerular 94 e-GFR eCW3 filtration ([place] rate/1.73 sq [facility] M.predicted [Volume Health Rate/Area] in Serum Care) or Plasma by Creatinine-based formula (MDRD) Glomerular 109 e-GFR, eCW3 filtration ([place] rate/1.73 sq M [place] predicted among Health blacks [Volume Care) Rate/Area] in Serum or Plasma by Creatinine-based formula (MDRD) Calcium 9.1 Calcium eCW3 [Mass/volume] in ([place] Serum or Plasma [facility]) Aspartate 33 AST eCW3 aminotransferase ([place] [Enzymatic River activity/volume] in Health Serum or Plasma Care) Alkaline 174 Alk Phos eCW3 phosphatase ([place] [Enzymatic River activity/volume] in Health Serum or Plasma Care) Bilirubin.total 0.3 Bilirubin, eCW3 [Mass/volume] in Total ([place] Serum or Plasma [facility]) Alanine 43 ALT eCW3 aminotransferase ([place] [Enzymatic [facility] activity/volume] in Health Serum or Plasma Care) Glucose 98 Glucose eCW3 [Mass/volume] in ([place] [facility] or [facility]) ID Date Data Source VITAMIN D, 25-HYDROXY, 04/12/2018 02:56:37 AM EST eCW3 ([facility] SERUM.12 Care) Name Value Range Interpretation Description Data Sup porting Code Source(s) Document(s ) Calcidiol 22.3 25OH, VITAMIN D eCW3 ([place] [Mass/volume] [facility] in Serum or Care) Plasma ID Date Data Source TETANUS ANTITOXIN ASSAY, 04/11/2018 02:14:13 AM EST eCW3 ([facility] SERUM.7 Care) Name Value Range Interpretation Code Description Data Supporting Source(s) Document(s ) Renin 1.10 Tetanus eCW3 ([place] [Enzymatic Antibody IgG [facility] activity/vo (58) Care) lume] in Plasma ID Date Data Source Segundo (HIV), In House.1 04/11/2018 02:00:06 AM EST eCW3 ( [facility]) Name Value Range Interpretation Description Data Sup porting Code Source(s) Document(s ) HIV 1 RNA non reactive Oraquick eCW3 ([place] [#/volume] [facility] (viral Care) load) in Serum or Plasma by DNA probe ID Date Data Source URINALYSIS W/REFLEX TO CULTURE 04/09/2018 09:52:28 AM EST eC W3 ([facility] B518-2.11 Care) Name Value Range Interpretation Code Description Data Supporting Source(s) Document(s ) NEGATIVE Protein, Urine eCW3 ([facility]) 1.021 Specific [place] eCW3 ([facility]) 5.5 pH Urine eCW3 ([facility]) NEGATIVE Ketone, Urine eCW3 ([facility]) NEGATIVE Glucose, Urine eCW3 ([facility]) 0.2 Urobilinogen eCW3 ([facility]) NEGATIVE Bilirubin, Urine eCW3 ([facility]) NEGATIVE Blood, Urine eCW3 ([facility]) NONE Crystals Urine eCW3 ([facility]) 5-10 WBC, Urine eCW3 ([facility]) NEGATIVE Nitrites Urine eCW3 ([facility]) NONE SEEN RBC, Urine eCW3 ([facility]) 0-4 Cast, Hyaline, eCW3 ([facility]) NONE SEEN Cast, RBC, Urine eCW3 ([facility]) FEW Epithelial Cells, eCW3 ([facility]) TRACE Leukocyte eCW3 ([facility]) NONE Crystal Amt. eCW3 ([facility]) NONE Bacteria, Urine eCW3 ([facility]) NONE SEEN Cast, Granular, eCW3 ([facility]) YELLOW Color eCW3 ([facility]) CLEAR Character eCW3 ([facility]) ID Date Data Source THYROID PANEL [id number] 04/09/2018 09:52:28 AM EST eCW3 ([facility]) Name Value Range Interpretation Code Description Data Tracy rce(s) Supporting Document(s ) 30.6 T3 Uptake (T3U) eCW3 ([facility]) 0.919 TSH eCW3 ([facility]) 1.25 THYROXINE, FREE eCW3 ([place] (FT4) [facility]) ID Date Data Source TETANUS ANTIBODY, IGG.9 04/09/2018 09:52:28 AM EST eCW3 ([facility]) Name Value Range Interpretation Code Description Data Tracy rce(s) Supporting Document(s ) TETANUS ANTIBODY, eCW3 ([facility]) ID Date Data Source HEPATITIS PANEL A, B, C 04/09/2018 09:52:28 AM EST eCW3 ([facility] SCREENING (2280-6).8 Care) Name Value Range Interpretation Description Data Sup porting Code Source(s) Document(s ) Non-Reactiv HEP. B SURF. eCW3 e Ag ([facility]) Reactive HEP. B SURF. eCW3 Ab. ([facility]) Non-Reactiv HEP. B CORE eCW3 e Ab. IGG ([facility]) Hepatitis A Reactive HEP. A Ab., eCW3 virus Ab TOTAL ([place] [Presence] in [facility] Serum by Health Immunoassay Care) Hepatitis C Non-Reactiv HEP. C Ab. eCW3 virus Ab e ([place] [Presence] in [facility] Serum or Health Plasma by Care) Immunoassay ID Date Data Source VARICELLA IMMUNITY TITERS.6 04/09/2018 09:52:28 AM EST eCW3 ([facility]) Name Value Range Interpretation Description Data Sup porting Code Source(s) Document(s ) Parathyrin. 2174.0 VARICELLA eCW3 ([place] intact ZOS.(IgG) [facility] [Mass/volum Care) e] in Serum or Plasma ID Date Data Source HAV AB, (IGM).5 04/09/2018 09:52:28 AM EST eCW3 ([facility]) Name Value Range Interpretation Description Data Sup porting Code Source(s) Document(s ) Hepatitis A Non-Reac HEP. A Ab., eCW3 ([place] virus IgM Ab tive IgM [facility] [Presence] in Care) Serum or Plasma by Immunoassay ID Date Data Source CBC W/DIFF, PLATELET CT. 04/09/2018 09:52:28 AM EST eCW3 ([facility] (0053-9).4 Care) Name Value Range Interpretation Code Description Data Tracy rce(s) Supporting Document(s ) 8.59 WBC eCW3 ([facility]) 14.6 HGB eCW3 ([facility]) 5.10 RBC eCW3 ([facility]) 43.4 HCT eCW3 ([facility]) 85.1 MCV eCW3 ([facility]) 33.6 MCHC eCW3 ([facility]) 28.6 MCH eCW3 ([facility]) 14.3 RDW eCW3 ([facility]) 25.0 LYMPHS eCW3 ([facility]) 66.7 POLYS eCW3 ([facility]) 2.15 LYMPHS, ABS. COUNT eCW3 ([facility]) 5.72 POLYS, ABS. COUNT eCW3 ([place] Behavioral [facility]) 1.6 EOS eCW3 ([facility]) 0.14 EOS, ABS. COUNT eCW3 ([facility]) 5.6 MONOS eCW3 ([facility]) 0.48 MONOS, ABS. COUNT eCW3 ([facility]) 0.08 BASOS, ABS. COUNT eCW3 ([facility]) 0.2 IMMATURE eCW3 ([facility]) 0.9 BASOS eCW3 ([facility]) 253 PLATELET COUNT eCW3 ([facility]) 11.4 MPV eCW3 ([facility]) ID Date Data Source HEMOGLOBIN A1c (glycohgb) 04/09/2018 09:52:28 AM EST eCW3 ([facility] (0102-4) BIOREFERENCE.3 Care) Name Value Range Interpretation Description Data Sup porting Code Source(s) Document(s ) Hemoglobin 5.6 Hemoglobin A1c eCW3 ([place] A1c/Hemoglobin [facility] .total in Care) Blood ID Date Data Source LIPID PANEL (All Lab 04/09/2018 09:52:28 AM EST eCW3 ([facility]) [id number] Care) Name Value Range Interpretation Description Data Sup porting Code Source(s) Document(s ) Cholesterol 176 Cholesterol eCW3 ([place] [Mass/volume] [facility] in Serum or Care) Plasma Deprecated 29 HDL as % of eCW3 ([place] Cholesterol Cholesterol [facility] [Mass/volume] Care) in Serum or Plasma Triglyceride 136 Triglycerides eCW3 ([place] [Mass/volume] [facility] in Serum or Care) Plasma Cholesterol in 51 HDL CHOL., eCW3 ([place] HDL DIRECT [facility] [Mass/volume] Care) in Serum or Plasma Cholesterol in 98 LDL Cholesterol eCW3 ([facility] son LDL [facility] [Mass/volume] Care) in Serum or Plasma by calculation Deprecated 1.92 LDL/HDL Ratio eCW3 ([place] Cholesterol [facility] [Mass/volume] Care) in Serum or Plasma Deprecated 27 VLDL, CALCULATED eCW3 ([place] Cholesterol [facility] [Mass/volume] Care) in Serum or Plasma Deprecated 3.5 Chol/HDL Ratio eCW3 ([place] Cholesterol [facility] [Mass/volume] Care) in Serum or Plasma Deprecated 125 Non-HDL eCW3 ([place] Cholesterol Cholesterol [facility] [Mass/volume] Care) in Serum or Plasma ID Date Data Source Measles/Mumps/Rubella 04/09/2018 09:52:28 AM EST eCW3 ([facility]) Immunity.0 Name Value Range Interpretation Code Description Data Tracy rce(s) Supporting Document(s ) 47.7 RUBEOLA/MEASLES(I eCW3 ([place] gG) [facility]) <5.0 MUMPS VIRUS eCW3 ([place] Ab.(IgG) [facility]) 15.4 RUBELLA,IgG eCW3 ([facility]) ID Date Data Source TSH W/FREE T4 REFLEX 11/28/2017 12:00:00 AM EDT eCW2 ([facility] (A518-3).6 Care) Name Value Range Interpretation Code Description Data Tracy rce(s) Supporting Document(s ) 1.870 0.178-4.53 TSH W/RFX TO eCW2 ([place] 0 FREE T4 [facility]) ID Date Data Source COMPREHENSIVE METABOLIC ([id number] 11/28/2017 12:00:00 AM eC W2 ([facility] EDT Care) Name Value Range Interpretation Description Data Sup porting Code Source(s) Document(s ) Albumin 4.0 3.5-5.2 Albumin eCW2 [Mass/volume] in ([place] Serum or Plasma [facility]) Globulin 2.9 1.7-3.7 Globulin eCW2 [Mass/volume] in ([place] Serum [facility]) Protein 6.9 5.9-8.4 Total Protein eCW2 [Mass/volume] in ([place] Serum or [facility]) Carbon dioxide, 23 22-29 CO2 eCW2 total ([place] [Moles/volume] in [place] Serum or [facility]) Sodium 137 135-147 Sodium eCW2 [Moles/volume] in ([place] Serum or [facility]) Potassium 4.0 3.5-5.5 Potassium eCW2 [Moles/volume] in ([place] Serum or [facility]) Albumin/Globulin 1.4 1.1-2.9 A/G Ratio eCW2 [Mass Ratio] in ([place] Serum or [facility]) Chloride 98 96-108 Chloride eCW2 [Moles/volume] in ([place] Serum or [facility]) Glomerular 117 >or=60 e-GFR, eCW2 filtration ([place] rate/1.73 sq M [place] predicted among Health blacks [Volume Care) Rate/Area] in Serum or Plasma by Creatinine-based formula (MDRD) Mycoplasma 24.7 10.0-28 BUN/Creat eCW2 pneumoniae DNA .0 Ratio ([place] [Units/volume] in [place] Blood by [facility] target Care) amplification method Creatinine 0.77 0.49-1. Creatinine eCW2 [Mass/volume] in 02 ([place] Serum or [facility]) Glomerular 101 >or=60 e-GFR eCW2 filtration ([place] rate/1.73 sq [place] M.predicted [Volume Health Rate/Area] in Serum Care) or Plasma by Creatinine-based formula (MDRD) Urea nitrogen 19 6-20 BUN eCW2 [Mass/volume] in ([facility] or [facility] Care) Alkaline 254 40-156 Alk Phos eCW2 phosphatase ([place] [Enzymatic [place] activity/volume] in Health Serum or Plasma Care) Glucose 105 70-99 Glucose eCW2 [Mass/volume] in ([facility] or [facility] Care) Bilirubin.total 0.3 <1.2 Bilirubin, eCW2 [Mass/volume] in Total ([facility] or [facility]) Calcium 9.0 8.6-10. Calcium eCW2 [Mass/volume] in 4 ([facility] or [facility] Care) Alanine 160 <33 ALT eCW2 aminotransferase ([place] [Enzymatic [place] activity/volume] in Health Serum or Plasma Care) Aspartate 89 <32 AST eCW2 aminotransferase ([place] [Enzymatic [place] activity/volume] in Health Serum or Plasma Care) ID Date Data Source CBC W/DIFF, PLATELET CT. 11/28/2017 12:00:00 AM EDT eCW2 ([facility] ([id number]).4 Care) Name Value Range Interpretation Code Description Data Supporting Source(s) Document(s ) 14.5 11.0-15.5 HGB eCW2 ([facility]) 12.64 4.00-10.10 WBC eCW2 ([facility]) 44.3 31.5-44.8 HCT eCW2 ([facility]) 5.11 3.58-5.19 RBC eCW2 ([facility]) 86.7 78.0-98.0 MCV eCW2 ([facility]) 65.2 37.1-78.1 POLYS eCW2 ([facility]) 32.7 31.0-34.7 MCHC eCW2 ([facility]) 14.6 12.0-15.5 RDW eCW2 ([facility]) 28.4 25.2-32.6 MCH eCW2 ([facility]) 23.9 13.7-50.9 LYMPHS eCW2 ([facility]) 3.02 0.80-3.00 LYMPHS, ABS. eCW2 ([facility]) 6.8 3.0-11.9 MONOS eCW2 ([facility]) 8.24 1.30-7.00 POLYS, ABS. COUNT eCW2 ([facility]) 0.05 0.00-0.70 BASOS, ABS. COUNT eCW2 ([facility]) 3.5 0.0-5.0 EOS eCW2 ([facility]) 0.4 0.0-1.0 BASOS eCW2 ([facility]) 0.44 0.00-0.40 EOS, ABS. COUNT eCW2 ([facility]) 0.86 0.00-1.00 MONOS, ABS. COUNT eCW2 ([facility]) 12.4 8.6-12.1 MPV eCW2 ([facility]) 0.2 0.0-1.0 IMMATURE eCW2 ([facility]) 245 140-425 PLATELET COUNT eCW2 ([facility]) ID Date Data Source VITAMIN D, 25-HYDROXY, SERUM.3 11/28/2017 12:00:00 AM EDT eC W2 ([facility]) Name Value Range Interpretation Description Data Sup porting Code Source(s) Document(s ) Calcidiol 23.6 32.0-100. 25OH, VITAMIN eCW2 ([place] [Mass/volume] 0 D [facility] in Serum or Care) Plasma ID Date Data Source HEMOGLOBIN A1c (glycohgb) 11/28/2017 12:00:00 AM EDT eCW2 ([facility] (0102-4) BIOREFERENCE.2 Care) Name Value Range Interpretation Description Data Sup porting Code Source(s) Document(s ) Hemoglobin 5.6 <5.7 Hemoglobin A1c eCW2 ([place] A1c/Hemoglobin [facility] .total in Care) Blood ID Date Data Source LIPID PANEL (All Lab 11/28/2017 12:00:00 AM EDT eCW2 ([facility]).1 Care) Name Value Range Interpretation Description Data Sup porting Code Source(s) Document(s ) Cholesterol 212 <200 Cholesterol eCW2 ([place] [Mass/volume] [facility] in Serum or Care) Plasma Cholesterol in 53 >50 HDL CHOL., eCW2 ([place] HDL DIRECT [facility] [Mass/volume] Care) in Serum or Plasma Deprecated 4.0 <5.8 Chol/HDL Ratio eCW2 ([place] Cholesterol [facility] [Mass/volume] Care) in Serum or Plasma Deprecated 25 >14 HDL as % of eCW2 ([place] Cholesterol Cholesterol [facility] [Mass/volume] Care) in Serum or Plasma Triglyceride 248 <150 Triglycerides eCW2 ([place] [Mass/volume] [facility] in Serum or Care) Plasma Cholesterol in 109 <100 LDL Cholesterol eCW2 ([facility] LDL [facility] [Mass/volume] Care) in Serum or Plasma by calculation Deprecated 50 7-32 VLDL, CALCULATED eCW2 ([place] Cholesterol [facility] [Mass/volume] Care) in Serum or Plasma Deprecated 159 <130 Non-HDL eCW2 ([facility] Cholesterol [facility] [Mass/volume] Care) in Serum or Plasma Deprecated 2.06 <3.56 LDL/HDL Ratio eCW2 ([facility] [Mass/volume] Care) in Serum or Plasma ID Date Data Source Chlamydia/GC 11/28/2017 12:00:00 AM EDT eCW2 ([facility]) RRNA,APTIMA,urine [id number] Name Value Range Interpretation Description Data Sup porting Code Source(s) Document(s ) Chlamydia NEGATIVE NEGATIVE C.TRACHOMATIS eCW2 trachomatis+Ne RRNA URN ([place] isseria [place] gonorrhoeae [facility] Care) [Presence] in Urine by DNA probe Clostridium NEGATIVE NEGATIVE N.GONORRHOEAE eCW2 difficile RRNA URN ([place] toxin A+B [place] [Presence] in Health Stool [...] Current Smoker completed Current Smoker eCW3 ( [facility]) Smoking Current Smoker completed Current Smoker eCW2 ( [facility]) Current Smoker completed Current Smoker eCW3 ( [facility]) Vital Signs ID Date Data Source UNK Name Value Range Interpretation Code Description Data Source(s) Diastolic blood 73.0 MM[HG] 73.0 MM[HG] NETSMAR T pressure ([facility]) Systolic blood 118.0 118.0 MM[HG] NETSMART pressure MM[HG] ([facility]) Body temperature 37.0556 EUGENIA 37.0556 EUGENIA NETSMA RT ([facility]) Body temperature 98.7 [degF] 98.7 [degF] NETSMA RT ([facility]) Body mass index 29.1 % 29.1 % NETSMART (BMI) [Ratio] ([facility]) Body height 177.0 cm 177.0 cm [facility] ([facility]) Region of interest 69.5 [IN_I] 69.5 [IN_I] NETS MART Height by US.M-mode ([facility]) Oxygen saturation 98.0 % 98.0 % [facility] T in Arterial blood ([facility] by Pulse oximetry [facility]) Body weight 91.0 kg 91.0 kg [facility] ([facility]) Body weight 200.0 200.0 [lb_av] COUNT INCLUDES [facility] Measured [lb_av] ([facility]) Heart rate 105.0 /MIN 105.0 /MIN [facility] ([facility]) Body temperature 36.7222 EUGENIA 36.7222 EUGENIA NETSMA RT ([facility]) Body temperature 98.1 [degF] 98.1 [degF] NETSMA RT ([facility]) Body mass index 6.2 % 6.2 % NETSMART (BMI) [Ratio] ([facility]) Body height 381.0 cm 381.0 cm [facility] ([facility]) Region of interest 150.0 150.0 [IN_I] NETS MART Height by US.M-mode [IN_I] ([facility]) Body weight 91.0 kg 91.0 kg NETSMART ([facility]) Body weight 200.0 200.0 [lb_av] NETSMART Measured [lb_av] ([facility]) Heart rate 96.0 /MIN 96.0 /MIN NETSMART ([facility]) Body temperature 36.498819 36.429262 [facility] Respiratory rate 18 /min 18 /min [facility] Heart rate 85 /min 85 /min [facility] Diastolic blood 70 mm[Hg] 70 mm[Hg] [facility] Systolic blood 137 mm[Hg] 137 mm[Hg] [facility] Oxygen saturation 96 % 96 % [facility] in [facility] blood [facility] by Pulse oximetry Body temperature 36.710402 36.678838 [facility] Respiratory rate 19 /min 19 /min [facility] Heart rate 103 /min 103 /min [facility] Diastolic blood 62 mm[Hg] 62 mm[Hg] [facility] Systolic blood 98.2 mm[Hg] 98.2 mm[Hg] [facility] Body temperature 36.354613 36.988219 [facility] Respiratory rate 20 /min 20 /min [facility] Heart rate 80 /min 80 /min [facility] Diastolic blood 72 mm[Hg] 72 mm[Hg] [facility] Systolic blood 111 mm[Hg] 111 mm[Hg] [facility] Body temperature 36.346154 36.745304 [facility] Respiratory rate 20 /min 20 /min [facility] Heart rate 98 /min 98 /min [facility] Diastolic blood 63 mm[Hg] 63 mm[Hg] [facility] Systolic blood 117 mm[Hg] 117 mm[Hg] [facility] Body temperature 36.934362 36.556197 [facility] Respiratory rate 18 /min 18 /min [facility] Heart rate 108 /min 108 /min [facility] Diastolic blood 67 mm[Hg] 67 mm[Hg] [facility] Systolic blood 100 mm[Hg] 100 mm[Hg] [facility] Oxygen saturation 96 % 96 % J osephs in Arterial blood [facility] Center by Pulse oximetry Inhaled oxygen 24 % 24 % [facility] Medical [place] ter Inhaled oxygen 40 % 40 % [facility] Medical [facility] ter Oxygen saturation 93 % 93 % [facility] in Arterial blood [facility] by Pulse oximetry Oxygen saturation 95 % 95 % [facility] in Arterial blood [facility] by Pulse oximetry Body temperature 37.097001 37.367518 [facility] Respiratory rate 20 /min 20 /min [facility] Heart rate 121 /min 121 /min [facility] Diastolic blood 71 mm[Hg] 71 mm[Hg] [facility] Systolic blood 109 mm[Hg] 109 mm[Hg] [facility] Body weight 88.270018 88.310165 kg [facility] Measured kg [facility] Oxygen saturation 85 % 85 % [facility] in Arterial blood [facility] by Pulse oximetry Body height 175.467054 175.924228 cm [facility] Body mass index 28.81 kg/m2 28.81 kg/m2 [facility] osephs (BMI) [Ratio] Medical [facility] ter Body temperature 36.994159 36.007954 [facility] Respiratory rate 20 /min 20 /min [facility] Heart rate 117 /min 117 /min [facility] Diastolic blood 76 mm[Hg] 76 mm[Hg] [facility] Systolic blood 124 mm[Hg] 124 mm[Hg] [facility] Inhaled oxygen 24 % 24 % [facility] Medical [facility] ter Body weight 88.783289 88.247791 kg [facility] Measured kg [facility] Body height 175.466245 175.453445 cm [facility] Body mass index 28.81 kg/m2 28.81 kg/m2 [facility] J osephs (BMI) [Ratio] Medical [facility] ter Body temperature 36.638235 36.183057 [facility] Respiratory rate 20 /min 20 /min [facility] Heart rate 124 /min 124 /min [facility] Diastolic blood 79 mm[Hg] 79 mm[Hg] [facility] Systolic blood 134 mm[Hg] 134 mm[Hg] [facility] Body temperature 36.092520 36.593938 [facility] Respiratory rate 22 /min 22 /min [facility] Oxygen saturation 92 % 92 % [facility] in [facility] blood [facility] by Pulse oximetry Heart rate 123 /min 123 /min [facility] Diastolic blood 82 mm[Hg] 82 mm[Hg] [facility] Systolic blood 144 mm[Hg] 144 mm[Hg] [facility] Body temperature 36.274001 36.140822 [facility] Respiratory rate 22 /min 22 /min [facility] Oxygen saturation 88 % 88 % [facility] in Arterial blood [facility] by Pulse oximetry Heart rate 111 /min 111 /min [facility] Diastolic blood 87 mm[Hg] 87 mm[Hg] [facility] Systolic blood 126 mm[Hg] 126 mm[Hg] [facility] Body weight 95.604410 95.147253 kg [facility] Measured kg [facility] Body height 175.396869 175.667655 cm [facility] Body mass index 31.0 kg/m2 31.0 kg/m2 [facility] ([facility]) [Ratio] [facility] Oxygen saturation 88 % 88 % [facility]ph[facility] in [facility] blood [facility] by Pulse oximetry Diastolic blood 70 mm[Hg] 70 mm[Hg] eCW3 ([facility]) Systolic blood 101 mm[Hg] 101 mm[Hg] eCW3 ([facility]) Body temperature 97.8 [degF] 97.8 [degF] eCW3 ( [facility]) Body mass index 29.84 kg/m2 29.84 kg/m2 eCW3 (H ann (BMI) [Ratio] [facility]) Body weight 205 [lb_av] 205 [lb_av] eCW3 ([facility]) Body height 69.5 [in_i] 69.5 [in_i] eCW3 ([facility]) Body mass index 31.3 % 31.3 % NETSMART (BMI) [Ratio] ([facility]) Body height 177.0 cm 177.0 cm NETSMART ([facility]) Region of interest 69.5 [IN_I] 69.5 [IN_I] NETS MART Height by US.M-mode ([facility]) Body weight 98.0 kg 98.0 kg NETSMART ([facility]) Body weight 215.0 215.0 [lb_av] NETSMART Measured [lb_av] ([facility]) Heart rate 98.0 /MIN 98.0 /MIN NETSMART ([facility]) Body temperature 36.6667 EUGENIA 36.6667 EUGENIA NETSMA RT ([facility]) Body temperature 98.0 [degF] 98.0 [degF] NETSMA RT ([facility]) Body mass index 31.3 % 31.3 % NETSMART (BMI) [Ratio] ([facility]) Body height 177.0 cm 177.0 cm NETSMART ([facility]) Region of interest 69.5 [IN_I] 69.5 [IN_I] NETS MART Height by US.M-mode ([facility]) Body weight 98.0 kg 98.0 kg NETSMART ([facility]) Body weight 215.0 215.0 [lb_av] NETSMART Measured [lb_av] ([facility]) Heart rate 101.0 /MIN 101.0 /MIN NETSMART ([facility]) Body mass index 30.9 % 30.9 % NETSMART (BMI) [Ratio] ([facility]) Body height 175.0 cm 175.0 cm COUNT INCLUDES [facility] ([facility]) Region of interest 69.0 [IN_I] 69.0 [IN_I] NETS MART Height by US.M-mode ([facility]) Body weight 95.0 kg 95.0 kg NETSMART ([facility]) Body weight 209.0 209.0 [lb_av] NETSMART Measured [lb_av] ([facility]) Heart rate 85.0 /MIN 85.0 /MIN NETSMART ([facility]) Diastolic blood 79 mm[Hg] 79 mm[Hg] eCW3 ([facility]) Systolic blood 111 mm[Hg] 111 mm[Hg] eCW3 ([facility]) Body temperature 98.7 [degF] 98.7 [degF] eCW3 ( [facility]) Body mass index 31.73 kg/m2 31.73 kg/m2 eCW3 (Emiliano juarez (BMI) [Ratio] [facility]) Body weight 218 [lb_av] 218 [lb_av] eCW3 ([facility]) Body height 69.5 [in_i] 69.5 [in_i] eCW3 ([facility]) Diastolic blood 63 mm[Hg] 63 mm[Hg] eCW2 ([facility]) Systolic blood 95 mm[Hg] 95 mm[Hg] eCW2 ([facility]) Body temperature 97.9 [degF] 97.9 [degF] eCW2 ( [facility]) Body mass index 30.42 kg/m2 30.42 kg/m2 eCW2 (Emiliano juarez (BMI) [Ratio] [facility]) Body weight 209 [lb_av] 209 [lb_av] eCW2 ([facility]) Body height 69.5 69.5 [in_us] eCW2 ([facility] [in_us] [facility]) Patient Treatment Plan of Care Planned Activity Planned Date Details Description Data Source (s) Hydroxyzine Hydrochloride 11/20/2017 eC W2 ([place] 25 MG Oral Tablet 12:00:00 AM [facility]) Cyclobenzaprine 11/20/2017 eCW2 ([place] hydrochloride 10 MG Oral 12:00:00 AM [facility]) Tablet Albuterol 0.83 MG/ML 09/26/2016 eCW2 ([place] Inhalant Solution 12:00:00 AM [facility]) ipratropium-albuterol 0.5 Sa int Sukumar mg-3 mg (2.5 mg base)/3 mL [facility] Solution for NebulizationDirections: 3 mL by inhalation every four hours PRN shortness of breath hydrOXYzine HCl 25 mg [facility] TabletDirections: 1 tablet [facility] oral daily at bedtime Prednisone 20 MG Oral [facility] 200 ACTUAT Albuterol 0.09 Sa int Sukumar MG/ACTUAT Metered Dose Medic [facility] Inhaler Sertraline 50 MG Oral [facility] Tablet [facility] 24 HR Bupropion [place] Hydrochloride 300 MG [facility] Extended Release Oral Tablet
--- NOTE | 2019-11-03 23:52 | HP ---
CHIEF COMPLAINT: Asthma exacerbation PCP: Dr. Crockett HISTORY OF PRESENT ILLNESS: Gin Farr is a 34 year old woman with moderate persistent asthma who presents with a four day history of wheezing, dyspnea, and cough. She reports using her albuterol inhaler with increasing frequency -- up to every 4 hours yesterday and today, with mild improvement in her symptoms. She has a history of exacerbations during seasonal/weather changes, and has been hospitalized approximately 1x per year with an asthma exacerbation. Smokes 5 cigarretes/day. Denies headache, dizziness, palpitations, syncope, abdominal pain, nausea, vomiting, dysuria. Lives with cousins and roomates. She received Duonebs and dexamethasone 10 mg from EMS. ED course: In the ED O2 saturation at 92% on room air, CXR negative, WBCs 12.9. Given magnesium, duonebs, yet continues to wheeze. Recent Travel: [facility] 3 weeks ago PAST MEDICAL HISTORY: Depression Anxiety PAST SURGICAL HISTORY: [place] teeth extraction Social History: Smokin cigarettes/day last 6 years Alcohol: None Drugs: None Allergies No Known Allergies Allergy (Verified 11/03/19 18:32) HOME MEDICATIONS: REVIEW OF SYSTEMS As per [facility] PHYSICAL EXAMINATION Vital Signs - 24 hr 11/03/19 18:28 Temperature 98.8 F Pulse Rate 121 H Respiratory 22 H Rate Blood Pressure 113/75 O2 Sat by Pulse 94 L Oximetry (%) GENERAL: Awake, alert, and fully oriented, in no acute distress. HEAD: Normal with no signs of trauma. EYES: PERRL, extraocular movements intact, sclera anicteric, conjunctiva clear. EARS, NOSE, THROAT: Ears normal, nares patent, oropharynx clear without exudates. Moist mucous membranes. NECK: Normal range of motion, supple without lymphadenopathy. LUNGS: Diffuse bilateral wheezing across all lung lindquist with decreased air entry. No accessory muscle use. HEART: Tachycardia to 118; regular rhythm normal S1 and S2 without murmur, rub or gallop. ABDOMEN: Soft, nontender, not distended, normoactive bowel sounds, no guarding, no rebound, no masses. MUSCULOSKELETAL: Normal range of motion at all joints. No bony deformities or tenderness. No CVA tenderness. LOWER EXTREMITIES: 2+ pulses, warm, well-perfused. No calf tenderness. No peripheral edema. PSYCHIATRIC: Cooperative. Good eye contact. Appropriate mood and affect. SKIN: Warm, dry, normal turgor, no rashes or lesions noted, normal capillary refill. Laboratory Results - last 24 hr 11/03/19 11/03/19 11/03/19 19:05 19:05 19:05 WBC 12.9 H RBC 4.93 Hgb 14.4 Hct 42.9 MCV 87.0 MCH 29.3 MCHC 33.6 RDW 14.8 Plt Count 188 MPV 10.6 Absolute Neuts (auto) 10.0 H Neutrophils % 77.3 Lymphocytes % 13.9 Monocytes % 4.5 Eosinophils % 3.6 Basophils % 0.7 Nucleated RBC % 0 Sodium 141 Potassium 3.6 Chloride 106 Carbon Dioxide 29 Anion Gap 5 L BUN 15.6 Creatinine 0.8 Est GFR (CKD-EPI)AfAm 109.93 Est GFR (CKD-EPI)NonAf 94.85 Random Glucose 99 Calcium 8.1 L Total Bilirubin 0.2 AST 58 H ALT 84 H Alkaline Phosphatase 159 H Total Protein 6.9 Albumin 3.4 Serum , Qual Negative ASSESSMENT/PLAN: Anne is a 34 year old woman with moderate persistent asthma who presents with 4 day history of dyspnea and wheezing, with oxygen saturation in low 90s after receiving decadron, duonebs, magnesium being admitted with acute asthma exacerbation. #Asthma Exacerbation - PMH moderate persistent asthma using rescue albuterol inhaler at home - Continue albuterol Q4 - Prednisone 40 mg for 5 days - Consider Singulair at discharge - Supplemental oxygen to keep saturation >95 #Transaminitis - Likely hemolyzed - Will follow up on am labs - Consider abdominal US if LFTs remain elevated DVT prophylaxis Lovenox FEN Encourage po intake Monitor am labs Dispo: med/surg FULL CODE - Family Medical History Family History: As Documented Visit type - Emergency Visit Emergency Visit: Yes ED Registration Date: 11/03/19 Care time: The patient presented to the Emergency Department on the above date and was hospitalized for further evaluation of their emergent condition. - New Patient This patient is new to me today: Yes Date on this admission: 11/04/19 - Critical Care Critical Care patient: No ATTENDING PHYSICIAN STATEMENT I saw and evaluated the patient. I reviewed the resident's note and discussed the case with the resident. I agree with the resident's findings and plan as documented. SUBJECTIVE: OBJECTIVE: ASSESSMENT AND PLAN:
[2019-11-04] MEDS ORDERED: ALBUTEROL SO4 0.083% IH SOL 2.5 MG/3 ML VIAL.NEB. NEB PRN (00:37)
[2019-11-04] MEDS ORDERED: ALBUTEROL SO4 HFA INHALER IH PRN ×2 (01:19→12:06)
[2019-11-04 06:19] LABS: BASO % 0.4 % (0-2.0); EOS % 0.1 % (0-4.5); HEMATOCRIT 41.1 % (32.4-45.2); HEMOGLOBIN 13.9 GM/dL (10.7-15.3); LYMPH % 9.9 % (8-40); MCH 29.3 pg (25.7-33.7); MCHC 33.9 g/dl (32.0-36.0); MEAN CELL VOLUME 86.6 fl (80-96); MEAN PLT VOLUME 10.3 fl (7.5-11.1); MONO % 4.5 % (3.8-10.2); NEUT % 85.1 % (42.8-82.8); PLATELET COUNT 182 K/MM3 (134-434); RBC 4.75 M/mm3 (3.60-5.2); RDW 14.5 % (11.6-15.6)
[2019-11-04 06:44] LABS: ALBUMIN 3.2 g/dl (3.4-5.0); BLOOD UREA NITROGEN 13.5 mg/dL (7-18); CALCIUM 8.5 mg/dL (8.5-10.1); CREATININE 0.8 mg/dL (0.55-1.3); POTASSIUM 3.9 mmol/L (3.5-5.1); TOT PROT 6.6 g/dl (6.4-8.2)
[2019-11-04 07:07] LABS: BILIRUBIN,TOTAL 0.4 mg/dL (0.2-1)
[2019-11-04] MEDS: ENOXAPARIN NA (PORCINE) 40 MG/0.4 ML DISP.SYRIN SQ SCH (11:12)
[2019-11-04] MEDS ORDERED: ALBUTEROL SO4 HFA INHALER IH ONE (11:55)
[2019-11-04] MEDS ORDERED: ALBUTEROL SO4 2.5/IPRATROPIUM 0.5 INH SOL 3 ML VIAL.NEB. NEB SCH (12:15)
[2019-11-04] MEDS ORDERED: methylPREDNISolone NA SUCC 40 MG/1 ML VIAL IVPUSH SCH (12:15)
[2019-11-04] MEDS ORDERED: methylPREDNISolone NA SUCC 40 MG/1 ML VIAL ONE (12:57)
[2019-11-04] MEDS: methylPREDNISolone NA SUCC 40 MG/1 ML VIAL IVPUSH SCH ×2 (13:04→20:58)
--- NOTE | 2019-11-04 13:27 | PN ---
Teaching Attending Note Name of Resident: Stoney Danielle ATTENDING PHYSICIAN STATEMENT I saw and evaluated the patient. I reviewed the resident's note and discussed the case with the resident. I agree with the resident's findings and plan as documented. SUBJECTIVE: SOB improving. No fever/chills. Cough productive of white sputum - no hemoptusis. No CP. OBJECTIVE: Afebrile, Hemodynamically stable. Comfortable on RA, speaking in full sentences, no central/peripheral cyanosis Last Vital Signs Temp Pulse Resp BP Pulse Ox 98.8 F 120 H 18 131/80 92 L 11/03/19 18:28 11/04/19 11:53 11/04/19 09:36 11/04/19 11:53 11/04/19 11:53 HEENT - Atraumatic, Normocephalic. Heart - S1 S2, RRR Lungs - bilateral polyphonic wheeze Abdomen - Soft, non-tender. Bowel Sounds normal. Extremities - no edema, no calf tenderness. Neuro- AAO x 3. Tone/Power normal all extremities. Laboratory Results - last 24 hr 11/03/19 11/03/19 11/03/19 19:05 19:05 19:05 WBC 12.9 H RBC 4.93 Hgb 14.4 Hct 42.9 MCV 87.0 MCH 29.3 MCHC 33.6 RDW 14.8 Plt Count 188 MPV 10.6 Absolute Neuts (auto) 10.0 H Neutrophils % 77.3 Lymphocytes % 13.9 Monocytes % 4.5 Eosinophils % 3.6 Basophils % 0.7 Nucleated RBC % 0 Sodium 141 Potassium 3.6 Chloride 106 Carbon Dioxide 29 Anion Gap 5 L BUN 15.6 Creatinine 0.8 Est GFR (CKD-EPI)AfAm 109.93 Est GFR (CKD-EPI)NonAf 94.85 Random Glucose 99 Calcium 8.1 L Total Bilirubin 0.2 AST 58 H ALT 84 H Alkaline Phosphatase 159 H Total Protein 6.9 Albumin 3.4 Serum , Qual Negative 11/04/19 11/04/19 05:51 05:51 WBC 8.0 RBC 4.75 Hgb 13.9 Hct 41.1 MCV 86.6 MCH 29.3 MCHC 33.9 RDW 14.5 Plt Count 182 MPV 10.3 Absolute Neuts (auto) 6.8 Neutrophils % 85.1 H Lymphocytes % 9.9 D Monocytes % 4.5 Eosinophils % 0.1 D Basophils % 0.4 Nucleated RBC % 0 Sodium 139 Potassium 3.9 Chloride 107 Carbon Dioxide 25 Anion Gap 7 L BUN 13.5 Creatinine 0.8 Est GFR (CKD-EPI)AfAm 109.93 Est GFR (CKD-EPI)NonAf 94.85 Random Glucose 120 H Calcium 8.5 Total Bilirubin 0.4 AST 70 H ALT 105 H Alkaline Phosphatase 162 H Total Protein 6.6 Albumin 3.2 L Serum , Qual Current Medications Generic Name Dose Route Start Last Admin Trade Name Freq PRN Reason Stop Dose Admin Albuterol Sulfate 2 puff 11/04/19 12:06 Ventolin Hfa Inhaler - IH Q2H PRN SHORTNESS OF BREATH Albuterol/Ipratropium 1 amp 11/04/19 16:00 Duoneb - NEB RQID NATALIA Enoxaparin Sodium 40 mg 11/04/19 10:00 11/04/19 11:12 Lovenox - SQ Not Given DAILY NATALIA Methylprednisolone Sodium Succinate 40 mg 11/04/19 12:30 11/04/19 13:04 Solu-Medrol - IVPUSH 40 mg Q6H-IV [facility] Administration Home Medications Medication Instructions Recorded Albuterol Sulfate Inhaler - 2 inh PO Q6H 11/04/19 [Ventolin Hfa Inhaler -] Budesonide/Formoterol Fumarate 2 inh IH BID 11/04/19 [Budesonide-Formoterol 160-4.5] Bupropion HCl [Bupropion Xl] 150 mg PO DAILY 11/04/19 Bupropion HCl [Bupropion Xl] 300 mg PO DAILY 11/04/19 Nicotine [Nicotine Patch 21 mg/24 1 each TD DAILY 11/04/19 hr] Olanzapine 15 mg PO DAILY 11/04/19 ASSESSMENT AND PLAN: 34 year old female with history of Asthma, active tobacco use, Anxiety/Depression, presents with a 4 day history of increasing shortness of breath, cough, wheeze. CXR - no acute cardiopulmonary findings. 1. Acute Asthma Exacerbation Ongoing wheeze, SpO2 92-94% RA Regular Bronchodilator nebs, IV Methylprednisone, supplemental O2 if required. Monitor respiratory status. COVID PCR pending. 2. Tobacco Use - cessation counselling done on admission. Nicotine patch prescribed 3. Elevated LFTs - fatty liver/hepatomegaly on Abdominal US AST 70/ALT 105 Will send Acute Hepatitis Panel Will consult GI if LFTs continue to rise. 4. Anxiety/Depression - Continue Bupropion, Olanzapine. DVT Px - Lovenox SQ GI Px - PPI
--- NOTE | 2019-11-04 14:04 | EKG ---
Test Reason : Blood Pressure : / mmHG Vent. Rate : 110 BPM Atrial Rate : 110 BPM P-R Int : 112 ms QRS Dur : 082 ms QT Int : 330 ms P-R-T Axes : 046 077 083 degrees QTc Int : 446 ms SINUS TACHYCARDIA OTHERWISE NORMAL ECG NO PREVIOUS ECGS AVAILABLE Confirmed by CHLOE HARTLEY MD ([id number]) on 11/04/2019 2:04:32 PM Referred By: Confirmed By:CHLOE HARTLEY MD
--- NOTE | 2019-11-04 15:01 | PN ---
Physical Exam: SUBJECTIVE: Patient seen and examined. SOB, wheezing, cough productive of clear sputum. OBJECTIVE: Vital Signs Period Temp Pulse Resp BP Sys/Burns Pulse Ox Last 24 Hr 97.0 F-98.8 F 98-121 18-22 113-131/63-81 91-94 GENERAL: The patient is awake, alert, and fully oriented, in no acute distress. HEAD: Normal with no signs of trauma. EYES: PERRL, extraocular movements intact, sclera anicteric, conjunctiva clear. No ptosis. ENT: Ears normal, nares patent, oropharynx clear without exudates, moist mucous membranes. NECK: Trachea midline, full range of motion, supple. LUNGS: Bilateral polyphonic wheezing HEART: Regular rhythm, S1, S2 without murmur, rub or gallop. Tachycardic. ABDOMEN: Soft, nondistended, normoactive bowel sounds, no guarding, no rebound, no masses. Abdominal pain located RUQ. EXTREMITIES: 2+ pulses, warm, well-perfused, no edema. NEUROLOGICAL: Cranial nerves II through XII grossly intact. Normal speech, gait not observed. PSYCH: Normal mood, normal affect. SKIN: Warm, dry, normal turgor, no rashes or lesions noted Laboratory Results - last 24 hr 11/03/19 11/03/19 11/03/19 19:05 19:05 19:05 WBC 12.9 H RBC 4.93 Hgb 14.4 Hct 42.9 MCV 87.0 MCH 29.3 MCHC 33.6 RDW 14.8 Plt Count 188 MPV 10.6 Absolute Neuts (auto) 10.0 H Neutrophils % 77.3 Lymphocytes % 13.9 Monocytes % 4.5 Eosinophils % 3.6 Basophils % 0.7 Nucleated RBC % 0 Sodium 141 Potassium 3.6 Chloride 106 Carbon Dioxide 29 Anion Gap 5 L BUN 15.6 Creatinine 0.8 Est GFR (CKD-EPI)AfAm 109.93 Est GFR (CKD-EPI)NonAf 94.85 Random Glucose 99 Calcium 8.1 L Total Bilirubin 0.2 AST 58 H ALT 84 H Alkaline Phosphatase 159 H Total Protein 6.9 Albumin 3.4 Serum , Qual Negative 11/04/19 11/04/19 05:51 05:51 WBC 8.0 RBC 4.75 Hgb 13.9 Hct 41.1 MCV 86.6 MCH 29.3 MCHC 33.9 RDW 14.5 Plt Count 182 MPV 10.3 Absolute Neuts (auto) 6.8 Neutrophils % 85.1 H Lymphocytes % 9.9 D Monocytes % 4.5 Eosinophils % 0.1 D Basophils % 0.4 Nucleated RBC % 0 Sodium 139 Potassium 3.9 Chloride 107 Carbon Dioxide 25 Anion Gap 7 L BUN 13.5 Creatinine 0.8 Est GFR (CKD-EPI)AfAm 109.93 Est GFR (CKD-EPI)NonAf 94.85 Random Glucose 120 H Calcium 8.5 Total Bilirubin 0.4 AST 70 H ALT 105 H Alkaline Phosphatase 162 H Total Protein 6.6 Albumin 3.2 L Serum , Qual Active Medications Generic Name Dose Route Start Last Admin Trade Name Freq PRN Reason Stop Dose Admin Albuterol Sulfate 2 puff 11/04/19 12:06 Ventolin Hfa Inhaler - IH Q2H PRN SHORTNESS OF BREATH Albuterol/Ipratropium 1 amp 11/04/19 16:00 Duoneb - NEB RQID NATALIA Bupropion HCl 300 mg 11/04/19 13:45 Wellbutrin Xl - PO DAILY NATALIA Enoxaparin Sodium 40 mg 11/04/19 10:00 11/04/19 11:12 Lovenox - SQ Not Given DAILY NATALIA Methylprednisolone Sodium Succinate 40 mg 11/04/19 12:30 11/04/19 13:04 Solu-Medrol - IVPUSH 40 mg Q6H-IV NATALIA Administration Nicotine 7 mg 11/04/19 13:45 Nicoderm Patch - TD DAILY [facility] Olanzapine 15 mg 11/04/19 13:45 Zyprexa - PO DAILY NATALIA Pantoprazole Sodium 40 mg 11/04/19 13:45 Protonix - PO DAILY [facility] ASSESSMENT/PLAN: Pt is a 34 year old female with PMHx of asthma, depression and anxiety presenting with wheezing, dyspnea and cough admitted for acute asthma exac erbation. #Acute asthma exacerbation -significant polyphonic wheezing; SpO2 92% on room air -Given decadron in EMS; started on IV solumeterol 40mg IV q6h -Duonebs q4h, [id number], albuterol q2h PRN -COVID pending #Transaminitis -AST ALT elevated (70 105) with abdominal pain -RUQ ultrasound mild hepatomegaly with fatty liver infiltration -Hep panel ordered #Hx of Anxiety and Depression -Continued home wellbutrin and olanzapine #Tobacco use -Nicotine patch -Counseled on quitting FEN No standing fluids Monitor electrolytes Regular diet PPx Lovenox 40mg SQ daily Dispo Admit to med surg. ATTENDING PHYSICIAN STATEMENT I saw and evaluated the patient. I reviewed the resident's note and discussed the case with the resident. I agree with the resident's findings and plan as documented. SUBJECTIVE: OBJECTIVE: ASSESSMENT AND PLAN:
[2019-11-04] MEDS ORDERED: PANTOPRAZOLE 40 MG TABLET ONE (15:40)
[2019-11-04] MEDS ORDERED: OLANZapine 10 MG TABLET ONE (15:41)
[2019-11-04] MEDS ORDERED: buPROPion HCL 100 MG TABLET ONE (15:41)
[2019-11-04] MEDS: PANTOPRAZOLE 40 MG TABLET PO SCH (15:48)
[2019-11-04] MEDS: NICOTINE 7 MG/24 HOURS TOPICAL PATCH TD SCH (15:53)
[2019-11-04] MEDS: OLANZapine 10 MG TABLET PO SCH (15:55)
[2019-11-05] MEDS: methylPREDNISolone NA SUCC 40 MG/1 ML VIAL IVPUSH SCH ×4 (02:29→20:38)
[2019-11-05 08:14] LABS: BASO % 0.1 % (0-2.0); HEMATOCRIT 40.6 % (32.4-45.2); HEMOGLOBIN 13.7 GM/dL (10.7-15.3); LYMPH % 7.6 % (8-40); MCH 29.7 pg (25.7-33.7); MCHC 33.8 g/dl (32.0-36.0); MEAN CELL VOLUME 87.9 fl (80-96); MEAN PLT VOLUME 10.8 fl (7.5-11.1); MONO % 1.3 % (3.8-10.2); PLATELET COUNT 179 K/MM3 (134-434); RBC 4.61 M/mm3 (3.60-5.2); RDW 14.7 % (11.6-15.6); WHITE BLOOD COUNT 11.9 K/mm3 (4.0-10.0)
[2019-11-05 08:45] LABS: ALBUMIN 3.1 g/dl (3.4-5.0); BILIRUBIN,TOTAL 0.2 mg/dL (0.2-1); BLOOD UREA NITROGEN 18.4 mg/dL (7-18); CALCIUM 8.4 mg/dL (8.5-10.1); CREATININE 0.8 mg/dL (0.55-1.3); MAGNESIUM 1.2 mg/dL (1.8-2.4); PHOSPHOROUS 3.4 mg/dL (2.5-4.9); POTASSIUM 4.2 mmol/L (3.5-5.1); TOT PROT 6.6 g/dl (6.4-8.2)
[2019-11-05] MEDS: ALBUTEROL SO4 2.5/IPRATROPIUM 0.5 INH SOL 3 ML VIAL.NEB. NEB SCH ×4 (08:45→20:06)
[2019-11-05] MEDS ORDERED: PT OWN MED DRAWER 7, Y5N ONE (09:59)
[2019-11-05] MEDS: PANTOPRAZOLE 40 MG TABLET PO SCH (10:00)
[2019-11-05] MEDS: OLANZapine 10 MG TABLET PO SCH (10:01)
[2019-11-05] MEDS: ENOXAPARIN NA (PORCINE) 40 MG/0.4 ML DISP.SYRIN SQ SCH (10:02)
[2019-11-05] MEDS: NICOTINE 7 MG/24 HOURS TOPICAL PATCH TD SCH (10:02)
[2019-11-05] MEDS ORDERED: MAGNESIUM 2GM/50ML STERILE WATER IVPB IVPB ONE (10:30)
[2019-11-05 10:52] LABS: ANISOCYTOSIS 1+; MACROCYTOSIS 0; PLATELET ESTIMATE NORMAL
--- NOTE | 2019-11-05 14:14 | PN ---
Teaching Attending Note Name of Resident: Stoney Danielle ATTENDING PHYSICIAN STATEMENT I saw and evaluated the patient. I reviewed the resident's note and discussed the case with the resident. I agree with the resident's findings and plan as documented. SUBJECTIVE: SOB a bit better, more comfortable. No fever/chills. Cough productive of white sputum - no hemoptusis. No CP. OBJECTIVE: Afebrile, Hemodynamically stable. Comfortable on RA, speaking in full sentences, no central/peripheral cyanosis Last Vital Signs Temp Pulse Resp BP Pulse Ox 98.7 F 106 H 20 101/55 L SpO2 93% RA 11/05/19 13:35 11/05/19 13:35 11/05/19 13:35 11/05/19 13:35 11/05/19 13:35 Heart - S1 S2, RRR Lungs - bilateral polyphonic wheeze Abdomen - Soft, non-tender. Bowel Sounds normal. Extremities - no edema, no calf tenderness. Neuro- AAO x 3. Tone/Power normal all extremities. Laboratory Results - last 24 hr 11/04/19 11/05/19 11/05/19 01:10 07:35 07:35 WBC 11.9 H RBC 4.61 Hgb 13.7 Hct 40.6 MCV 87.9 MCH 29.7 MCHC 33.8 RDW 14.7 Plt Count 179 MPV 10.8 Absolute Neuts (auto) 10.8 H Neutrophils % 91.0 H Neutrophils % (Manual) 88.0 H Band Neutrophils % 2.0 Lymphocytes % 7.6 L D Lymphocytes % (Manual) 8.0 Monocytes % 1.3 L Monocytes % (Manual) 2 L Eosinophils % 0.0 D Eosinophils % (Manual) 0.0 Basophils % 0.1 Basophils % (Manual) 0.0 Myelocytes % (Man) 0 Promyelocytes % (Man) 0 Blast Cells % (Manual) 0 Nucleated RBC % 0 Metamyelocytes 0 Hypochromia 0 Platelet Estimate Normal Platelet Comment Present Polychromasia 0 Poikilocytosis 0 Anisocytosis 1+ Microcytosis 1+ Macrocytosis 0 Sodium 140 Potassium 4.2 Chloride 108 H Carbon Dioxide 25 Anion Gap 7 L BUN 18.4 H Creatinine 0.8 Est GFR (CKD-EPI)AfAm 109.93 Est GFR (CKD-EPI)NonAf 94.85 Random Glucose 134 H Calcium 8.4 L Phosphorus 3.4 Magnesium 1.2 L Total Bilirubin 0.2 AST 45 H ALT 100 H Alkaline Phosphatase 145 H Total Protein 6.6 Albumin 3.1 L COVID-19 (JAZZY) Not detected Current Medications Generic Name Dose Route Start Last Admin Trade Name Freq PRN Reason Stop Dose Admin Albuterol Sulfate 2 puff 11/04/19 12:06 Ventolin Hfa Inhaler - IH Q2H PRN SHORTNESS OF BREATH Albuterol/Ipratropium 1 amp 11/04/19 16:00 11/05/19 11:05 Duoneb - NEB Not Given RQID NATALIA Bupropion HCl 300 mg 11/04/19 13:45 11/05/19 10:01 Wellbutrin Xl - PO Not Given DAILY NATALIA Enoxaparin Sodium 40 mg 11/04/19 10:00 11/05/19 10:02 Lovenox - SQ Not Given DAILY NATALIA Methylprednisolone Sodium Succinate 40 mg 11/04/19 12:30 11/05/19 08:43 Solu-Medrol - IVPUSH 40 mg Q6H-IV NATALIA Administration Nicotine 7 mg 11/04/19 13:45 11/05/19 10:02 Nicoderm Patch - TD Not Given DAILY NATALIA Olanzapine 15 mg 11/04/19 13:45 11/05/19 10:01 Zyprexa - PO Not Given DAILY NATALIA Pantoprazole Sodium 40 mg 11/04/19 13:45 11/05/19 10:00 Protonix - PO 40 mg DAILY NATALIA Administration Home Medications Medication Instructions Recorded Albuterol Sulfate Inhaler - 2 inh PO Q6H 11/04/19 [Ventolin Hfa Inhaler -] Budesonide/Formoterol Fumarate 2 inh IH BID 11/04/19 [Budesonide-Formoterol 160-4.5] Bupropion HCl [Bupropion Xl] 150 mg PO DAILY 11/04/19 Bupropion HCl [Bupropion Xl] 300 mg PO DAILY 11/04/19 Nicotine [Nicotine Patch 21 mg/24 1 each TD DAILY 11/04/19 hr] Olanzapine 15 mg PO DAILY 11/04/19 ASSESSMENT AND PLAN: 34 year old female with history of Asthma, active tobacco use, Anxiety/Depression, presents with a 4 day history of increasing shortness of breath, cough, wheeze. CXR - no acute cardiopulmonary findings. 1. Acute Asthma Exacerbation Ongoing wheeze, SpO2 93% RA Regular Bronchodilator nebs, IV Methylprednisone, supplemental O2 if required. Monitor respiratory status. COVID PCR negative 2. Tobacco Use - cessation counselling done on admission. Nicotine patch prescribed 3. Elevated LFTs - fatty liver/hepatomegaly on Abdominal US AST 45/ALT 100 Acute Hepatitis Panel pending Will consult GI if LFTs continue to rise. 4. Anxiety/Depression - Continue Bupropion, Olanzapine. 5. Hypomagnesemia - repleted. DVT Px - Lovenox SQ GI Px - PPI
--- NOTE | 2019-11-05 14:32 | PN ---
Physical Exam: SUBJECTIVE: Patient seen and examined. Improved wheezing, SOB. OBJECTIVE: Vital Signs Period Temp Pulse Resp BP Sys/Burns Pulse Ox Last 24 Hr 98.4 F-99.1 F 80-106 18-20 101-115/55-66 90-94 GENERAL: The patient is awake, alert, and fully oriented, in no acute distress. HEAD: Normal with no signs of trauma. EYES: PERRL, extraocular movements intact, sclera anicteric, conjunctiva clear. No ptosis. ENT: Ears normal, nares patent, oropharynx clear without exudates, moist mucous membranes. NECK: Trachea midline, full range of motion, supple. LUNGS: Bilateral wheezing, improved from yesterday HEART: Regular rhythm, S1, S2 without murmur, rub or gallop. Tachycardic. ABDOMEN: Soft, nondistended, normoactive bowel sounds, no guarding, no rebound, no masses. Slightly tender RUQ abdominal pain. EXTREMITIES: 2+ pulses, warm, well-perfused, no edema. NEUROLOGICAL: Cranial nerves II through XII grossly intact. Normal speech. PSYCH: Normal mood, normal affect. SKIN: Warm, dry, normal turgor, no rashes or lesions noted Laboratory Results - last 24 hr 11/04/19 11/05/19 11/05/19 01:10 07:35 07:35 WBC 11.9 H RBC 4.61 Hgb 13.7 Hct 40.6 MCV 87.9 MCH 29.7 MCHC 33.8 RDW 14.7 Plt Count 179 MPV 10.8 Absolute Neuts (auto) 10.8 H Neutrophils % 91.0 H Neutrophils % (Manual) 88.0 H Band Neutrophils % 2.0 Lymphocytes % 7.6 L D Lymphocytes % (Manual) 8.0 Monocytes % 1.3 L Monocytes % (Manual) 2 L Eosinophils % 0.0 D Eosinophils % (Manual) 0.0 Basophils % 0.1 Basophils % (Manual) 0.0 Myelocytes % (Man) 0 Promyelocytes % (Man) 0 Blast Cells % (Manual) 0 Nucleated RBC % 0 Metamyelocytes 0 Hypochromia 0 Platelet Estimate Normal Platelet Comment Present Polychromasia 0 Poikilocytosis 0 Anisocytosis 1+ Microcytosis 1+ Macrocytosis 0 Sodium 140 Potassium 4.2 Chloride 108 H Carbon Dioxide 25 Anion Gap 7 L BUN 18.4 H Creatinine 0.8 Est GFR (CKD-EPI)AfAm 109.93 Est GFR (CKD-EPI)NonAf 94.85 Random Glucose 134 H Calcium 8.4 L Phosphorus 3.4 Magnesium 1.2 L Total Bilirubin 0.2 AST 45 H ALT 100 H Alkaline Phosphatase 145 H Total Protein 6.6 Albumin 3.1 L COVID-19 (JAZZY) Not detected Active Medications Generic Name Dose Route Start Last Admin Trade Name Freq PRN Reason Stop Dose Admin Albuterol Sulfate 2 puff 11/04/19 12:06 Ventolin Hfa Inhaler - IH Q2H PRN SHORTNESS OF BREATH Albuterol/Ipratropium 1 amp 11/04/19 16:00 11/05/19 11:05 Duoneb - NEB Not Given RQID NATALIA Bupropion HCl 300 mg 11/04/19 13:45 11/05/19 10:01 Wellbutrin Xl - PO Not Given DAILY NATALIA Enoxaparin Sodium 40 mg 11/04/19 10:00 11/05/19 10:02 Lovenox - SQ Not Given DAILY NATALIA Methylprednisolone Sodium Succinate 40 mg 11/04/19 12:30 11/05/19 08:43 Solu-Medrol - IVPUSH 40 mg Q6H-IV NATALIA Administration Nicotine 7 mg 11/04/19 13:45 11/05/19 10:02 Nicoderm Patch - TD Not Given DAILY NATALIA Olanzapine 15 mg 11/04/19 13:45 11/05/19 10:01 Zyprexa - PO Not Given DAILY NATALIA Pantoprazole Sodium 40 mg 11/04/19 13:45 11/05/19 10:00 Protonix - PO 40 mg DAILY NATALIA Administration ASSESSMENT/PLAN: Pt is a 34 year old female with PMHx of asthma, depression and anxiety presenting with wheezing, dyspnea and cough admitted for acute asthma exacerbation. #Acute asthma exacerbation -significant polyphonic wheezing; SpO2 93% on room air; supplemental O2 if required -IV solumeterol 40mg IV q6h -Duonebs q4h, [id number], albuterol q2h PRN -COVID negative #Transaminitis -AST ALT elevated 45 100 -acute hep panel pending -Will consult GI if LFTs consider to rise -RUQ ultrasound showing hepatomegaly and fatty liver #Hx of Anxiety and Depression -Continued home wellbutrin and olanzapine #Tobacco use -Nicotine patch -Counseled on quitting FEN No standing fluids Monitor electrolytes Regular diet PPx Lovenox 40mg SQ daily Dispo Admit to med surg. Visit type - Emergency Visit Emergency Visit: Yes ED Registration Date: 11/03/19 Care time: The patient presented to the Emergency Department on the above date and was hospitalized for further evaluation of their emergent condition. - New Patient This patient is new to me today: No - Critical Care Critical Care patient: No ATTENDING PHYSICIAN STATEMENT I saw and evaluated the patient. I reviewed the resident's note and discussed the case with the resident. I agree with the resident's findings and plan as documented. SUBJECTIVE: OBJECTIVE: ASSESSMENT AND PLAN:
[2019-11-06] MEDS: methylPREDNISolone NA SUCC 40 MG/1 ML VIAL IVPUSH SCH ×4 (02:11→21:43)
[2019-11-06 08:07] LABS: BASO % 0.2 % (0-2.0); HEMATOCRIT 41.9 % (32.4-45.2); LYMPH % 7.4 % (8-40); MCH 29.2 pg (25.7-33.7); MCHC 33.4 g/dl (32.0-36.0); MEAN CELL VOLUME 87.7 fl (80-96); MEAN PLT VOLUME 11.2 fl (7.5-11.1); MONO % 2.1 % (3.8-10.2); NEUT % 90.3 % (42.8-82.8); PLATELET COUNT 193 K/MM3 (134-434); RBC 4.79 M/mm3 (3.60-5.2); RDW 14.4 % (11.6-15.6)
[2019-11-06 08:39] LABS: ALBUMIN 3.2 g/dl (3.4-5.0); BILIRUBIN,TOTAL 0.3 mg/dL (0.2-1); BLOOD UREA NITROGEN 23.5 mg/dL (7-18); CALCIUM 8.9 mg/dL (8.5-10.1); CREATININE 0.9 mg/dL (0.55-1.3); MAGNESIUM 1.5 mg/dL (1.8-2.4); PHOSPHOROUS 3.7 mg/dL (2.5-4.9); POTASSIUM 4.3 mmol/L (3.5-5.1); TOT PROT 6.7 g/dl (6.4-8.2)
[2019-11-06] MEDS: ALBUTEROL SO4 2.5/IPRATROPIUM 0.5 INH SOL 3 ML VIAL.NEB. NEB SCH ×4 (08:47→21:00)
[2019-11-06] MEDS ORDERED: MAGNESIUM 2GM/50ML STERILE WATER IVPB IVPB ONE (09:00)
[2019-11-06] MEDS ORDERED: PT OWN MED DRAWER 7, Y5N ONE ×2 (09:59→10:46)
[2019-11-06] MEDS: OLANZapine 10 MG TABLET PO SCH (10:04)
[2019-11-06] MEDS: PANTOPRAZOLE 40 MG TABLET PO SCH (10:05)
[2019-11-06] MEDS: ENOXAPARIN NA (PORCINE) 40 MG/0.4 ML DISP.SYRIN SQ SCH (10:05)
[2019-11-06] MEDS: NICOTINE 7 MG/24 HOURS TOPICAL PATCH TD SCH (10:05)
--- NOTE | 2019-11-06 13:58 | PN ---
Physical Exam: SUBJECTIVE: Patient seen and examined at bedside this morning. Patient reports feeling better, less cough and wheezing. Speaks in straight sentences, O2 sat 98% on room air. She denies any fevers, chills, headache, chest pain, SOB, abdominal pain, diarrhea, urinary symptoms. OBJECTIVE: Vital Signs Temperature 99 F 11/06/19 10:00 Pulse Rate 101 H 11/06/19 10:00 Respiratory Rate 20 11/06/19 10:00 Blood Pressure 122/56 L 11/06/19 10:00 O2 Sat by Pulse Oximetry (%) 94 L 11/06/19 10:00 GENERAL: The patient is awake, alert, and fully oriented, in no acute distress. NECK: supple. LUNGS: Decreased breath sounds bilateral bases, +scattered wheezes HEART: Regular rate and rhythm, S1, S2 ABDOMEN: Soft, nontender, nondistended, normoactive bowel sounds EXTREMITIES: 2+ pulses, warm, well-perfused, no edema. NEUROLOGICAL: Cranial nerves II through XII grossly intact. Normal speech PSYCH: Normal mood, normal affect. SKIN: Warm, dry, normal turgor Laboratory Results - last 24 hr 11/04/19 11/06/19 11/06/19 20:02 06:55 06:55 WBC 15.0 H RBC 4.79 Hgb 14.0 Hct 41.9 MCV 87.7 MCH 29.2 MCHC 33.4 RDW 14.4 Plt Count 193 MPV 11.2 H Absolute Neuts (auto) 13.5 H Neutrophils % 90.3 H Lymphocytes % 7.4 L Monocytes % 2.1 L Eosinophils % 0.0 Basophils % 0.2 Nucleated RBC % 0 Sodium 138 Potassium 4.3 Chloride 103 Carbon Dioxide 28 Anion Gap 7 L BUN 23.5 H Creatinine 0.9 Est GFR (CKD-EPI)AfAm 95.34 Est GFR (CKD-EPI)NonAf 82.26 Random Glucose 125 H Calcium 8.9 Phosphorus 3.7 Magnesium 1.5 L Total Bilirubin 0.3 AST 17 ALT 75 H Alkaline Phosphatase 133 H Total Protein 6.7 Albumin 3.2 L Hep A IgM Ab Confirm Negative Hep Bs Antigen Negative Hep B Core IgM Ab Negative Hepatitis C Ab (EIA) <0.1 Active Medications Generic Name Dose Route Start Last Admin Trade Name Freq PRN Reason Stop Dose Admin Albuterol Sulfate 2 puff 11/04/19 12:06 Ventolin Hfa Inhaler - IH Q2H PRN SHORTNESS OF BREATH Albuterol/Ipratropium 1 amp 11/04/19 16:00 11/06/19 11:51 Duoneb - NEB 1 amp RQID NATALIA Administration Bupropion HCl 300 mg 11/04/19 13:45 11/06/19 10:05 Wellbutrin Xl - PO Not Given DAILY NATALIA Enoxaparin Sodium 40 mg 11/04/19 10:00 11/06/19 10:05 Lovenox - SQ Not Given DAILY NATALIA Methylprednisolone Sodium Succinate 40 mg 11/04/19 12:30 11/06/19 10:04 Solu-Medrol - IVPUSH 40 mg Q6H-IV NATALIA Administration Nicotine 7 mg 11/04/19 13:45 11/06/19 10:05 Nicoderm Patch - TD Not Given DAILY NATALIA Olanzapine 15 mg 11/04/19 13:45 11/06/19 10:04 Zyprexa - PO 15 mg DAILY NATALIA Administration Pantoprazole Sodium 40 mg 11/04/19 13:45 11/06/19 10:05 Protonix - PO 40 mg DAILY NATALIA Administration ASSESSMENT/PLAN: Pt is a 34 year old female with PMHx of asthma, depression and anxiety presenting with wheezing, dyspnea and cough admitted for acute asthma exacerbation. #Acute asthma exacerbation -SpO2 98% on room air -supplemental O2 prn to keep sPO2>90% -continue IV solumeterol 40mg IV q6h -Duonebs RQID, albuterol inh q2h PRN -COVID negative #Transaminitis -LFTs trending down -acute hep panel negative -RUQ ultrasound showing hepatomegaly and fatty liver #Hx of Anxiety and Depression -Continued home wellbutrin and olanzapine #Tobacco use -Nicotine patch -Counseled on quitting #FEN -No standing fluids -Monitor electrolytes -Regular diet #PPx -Lovenox 40mg SQ daily #Dispo -Admit to med surg. Visit type - Emergency Visit Emergency Visit: Yes ED Registration Date: 11/03/19 Care time: The patient presented to the Emergency Department on the above date and was hospitalized for further evaluation of their emergent condition. - New Patient This patient is new to me today: Yes Date on this admission: 11/06/19 - Critical Care Critical Care patient: No ATTENDING PHYSICIAN STATEMENT I saw and evaluated the patient. I reviewed the resident's note and discussed the case with the resident. I agree with the resident's findings and plan as documented. SUBJECTIVE: OBJECTIVE: ASSESSMENT AND PLAN:
--- NOTE | 2019-11-06 15:43 | PN ---
Teaching Attending Note Name of Resident: Brooklynn Diaz ATTENDING PHYSICIAN STATEMENT I saw and evaluated the patient. I reviewed the resident's note and discussed the case with the resident. I agree with the resident's findings and plan as documented. SUBJECTIVE: SOB getting better,still wheezing. No fever/chills. Cough productive of white sputum - no hemoptusis. No CP. OBJECTIVE: Afebrile, Hemodynamically stable. Comfortable on RA, speaking in full sentences, no central/peripheral cyanosis Last Vital Signs Temp Pulse Resp BP Pulse Ox 97.5 F L 81 20 106/57 L 91 % on RA 11/06/19 13:59 11/06/19 13:59 11/06/19 13:59 11/06/19 13:59 11/06/19 13:59 Heart - S1 S2, RRR Lungs - bilateral polyphonic wheeze Abdomen - Soft, non-tender. Bowel Sounds normal. Extremities - no edema, no calf tenderness. Neuro - AAO x 3. Tone/Power normal all extremities. Laboratory Results - last 24 hr 11/04/19 11/06/19 11/06/19 20:02 06:55 06:55 WBC 15.0 H RBC 4.79 Hgb 14.0 Hct 41.9 MCV 87.7 MCH 29.2 MCHC 33.4 RDW 14.4 Plt Count 193 MPV 11.2 H Absolute Neuts (auto) 13.5 H Neutrophils % 90.3 H Lymphocytes % 7.4 L Monocytes % 2.1 L Eosinophils % 0.0 Basophils % 0.2 Nucleated RBC % 0 Sodium 138 Potassium 4.3 Chloride 103 Carbon Dioxide 28 Anion Gap 7 L BUN 23.5 H Creatinine 0.9 Est GFR (CKD-EPI)AfAm 95.34 Est GFR (CKD-EPI)NonAf 82.26 Random Glucose 125 H Calcium 8.9 Phosphorus 3.7 Magnesium 1.5 L Total Bilirubin 0.3 AST 17 ALT 75 H Alkaline Phosphatase 133 H Total Protein 6.7 Albumin 3.2 L Hep A IgM Ab Confirm Negative Hep Bs Antigen Negative Hep B Core IgM Ab Negative Hepatitis C Ab (EIA) <0.1 Current Medications Generic Name Dose Route Start Last Admin Trade Name Freq PRN Reason Stop Dose Admin Albuterol Sulfate 2 puff 11/04/19 12:06 Ventolin Hfa Inhaler - IH Q2H PRN SHORTNESS OF BREATH Albuterol/Ipratropium 1 amp 11/04/19 16:00 11/06/19 15:31 Duoneb - NEB 1 amp RQID NATALIA Administration Bupropion HCl 300 mg 11/04/19 13:45 11/06/19 10:05 Wellbutrin Xl - PO Not Given DAILY NATALIA Enoxaparin Sodium 40 mg 11/04/19 10:00 11/06/19 10:05 Lovenox - SQ Not Given DAILY NATALIA Methylprednisolone Sodium Succinate 40 mg 11/04/19 12:30 11/06/19 15:25 Solu-Medrol - IVPUSH 40 mg Q6H-IV NATALIA Administration Nicotine 7 mg 11/04/19 13:45 11/06/19 10:05 Nicoderm Patch - TD Not Given DAILY NATALIA Olanzapine 15 mg 11/04/19 13:45 11/06/19 10:04 Zyprexa - PO 15 mg DAILY NATALIA Administration Pantoprazole Sodium 40 mg 11/04/19 13:45 11/06/19 10:05 Protonix - PO 40 mg DAILY NATALIA Administration Home Medications Medication Instructions Recorded Albuterol Sulfate Inhaler - 2 inh PO Q6H 11/04/19 [Ventolin Hfa Inhaler -] Budesonide/Formoterol Fumarate 2 inh IH BID 11/04/19 [Budesonide-Formoterol 160-4.5] Bupropion HCl [Bupropion Xl] 150 mg PO DAILY 11/04/19 Bupropion HCl [Bupropion Xl] 300 mg PO DAILY 11/04/19 Nicotine [Nicotine Patch 21 mg/24 1 each TD DAILY 11/04/19 hr] Olanzapine 15 mg PO DAILY 11/04/19 ASSESSMENT AND PLAN: 34 year old female with history of Asthma, active tobacco use, Anxiety/Depression, presents with a 4 day history of increasing shortness of breath, cough, wheeze. CXR - no acute cardiopulmonary findings. 1. Acute Asthma Exacerbation Ongoing wheeze, SpO2 91-93% RA Regular Bronchodilator nebs, IV Methylprednisone, supplemental O2 if required. Leukocytosis sec to steroid. Monitor respiratory status. COVID PCR negative 2. Tobacco Use - cessation counselling done on admission. Nicotine patch prescribed 3. Elevated LFTs - fatty liver/hepatomegaly on Abdominal US LFTs improving. Acute Hepatitis Panel negative 4. Anxiety/Depression - Continue Bupropion, Olanzapine. 5. Hypomagnesemia - recurrent, repleted. DVT Px - Lovenox SQ GI Px - PPI
[2019-11-07] MEDS: methylPREDNISolone NA SUCC 40 MG/1 ML VIAL IVPUSH SCH ×2 (02:19→10:10)
[2019-11-07 08:23] LABS: BASO % 0.2 % (0-2.0); HEMATOCRIT 42.2 % (32.4-45.2); HEMOGLOBIN 13.9 GM/dL (10.7-15.3); LYMPH % 10.4 % (8-40); MCH 28.7 pg (25.7-33.7); MCHC 32.9 g/dl (32.0-36.0); MEAN CELL VOLUME 87.2 fl (80-96); MEAN PLT VOLUME 10.6 fl (7.5-11.1); MONO % 2.1 % (3.8-10.2); NEUT % 87.3 % (42.8-82.8); PLATELET COUNT 204 K/MM3 (134-434); RBC 4.84 M/mm3 (3.60-5.2); RDW 14.8 % (11.6-15.6); WHITE BLOOD COUNT 10.9 K/mm3 (4.0-10.0)
[2019-11-07] MEDS: ALBUTEROL SO4 2.5/IPRATROPIUM 0.5 INH SOL 3 ML VIAL.NEB. NEB SCH ×3 (08:28→16:32)
[2019-11-07 09:07] LABS: BILIRUBIN,TOTAL 0.3 mg/dL (0.2-1); BLOOD UREA NITROGEN 23.5 mg/dL (7-18); CALCIUM 8.7 mg/dL (8.5-10.1); CREATININE 0.9 mg/dL (0.55-1.3); MAGNESIUM 1.3 mg/dL (1.8-2.4); PHOSPHOROUS 4.4 mg/dL (2.5-4.9); TOT PROT 6.3 g/dl (6.4-8.2)
[2019-11-07] MEDS ORDERED: PT OWN MED DRAWER 7, Y5N ONE (10:06)
[2019-11-07] MEDS: OLANZapine 10 MG TABLET PO SCH (10:08)
[2019-11-07] MEDS: PANTOPRAZOLE 40 MG TABLET PO SCH (10:08)
[2019-11-07] MEDS: NICOTINE 7 MG/24 HOURS TOPICAL PATCH TD SCH (10:09)
[2019-11-07] MEDS: ENOXAPARIN NA (PORCINE) 40 MG/0.4 ML DISP.SYRIN SQ SCH (10:12)
--- NOTE | 2019-11-07 11:00 | DS ---
Physical Exam: SUBJECTIVE: SOB much improved. No fever/chills. Cough improved - no hemoptusis. No CP. OBJECTIVE: Afebrile, Hemodynamically stable. Comfortable on RA, speaking in full sentences, no central/peripheral cyanosis Last Vital Signs Temp Pulse Resp BP Pulse Ox 98.3 F 83 20 118/66 92-93% RA 11/07/19 06:00 11/07/19 06:00 11/07/19 06:00 11/07/19 06:00 11/07/19 06:00 Heart - S1, S2, RRR Lungs - some residual bilateral wheeze Abdomen - Soft, non-tender. Bowel Sounds normal. Extremities - no edema, no calf tenderness. Neuro - AAO x 3. Tone/Power normal all extremities. Laboratory Results - last 24 hr 11/07/19 11/07/19 07:30 07:30 WBC 10.9 H RBC 4.84 Hgb 13.9 Hct 42.2 MCV 87.2 MCH 28.7 MCHC 32.9 RDW 14.8 Plt Count 204 MPV 10.6 Absolute Neuts (auto) 9.5 H Neutrophils % 87.3 H Lymphocytes % 10.4 D Monocytes % 2.1 L Eosinophils % 0.0 Basophils % 0.2 Nucleated RBC % 0 Sodium 139 Potassium 4.0 Chloride 103 Carbon Dioxide 27 Anion Gap 9 BUN 23.5 H Creatinine 0.9 Est GFR (CKD-EPI)AfAm 95.34 Est GFR (CKD-EPI)NonAf 82.26 Random Glucose 115 H Calcium 8.7 Phosphorus 4.4 Magnesium 1.3 L Total Bilirubin 0.3 AST 12 L ALT 60 Alkaline Phosphatase 119 H Total Protein 6.3 L Albumin 3.0 L Date of Admission:11/03/19 Date of Discharge: 11/07/19 Minutes to complete discharge: 35 Discharge Summary Problems reviewed: Yes Reason For Visit: EXACERBATION OF ASTHMA Current Active Problems Asthma exacerbation (Acute) Hospital Course: 34 year old female with history of Asthma, active tobacco use, Anxiety/Depression, presents with a 4 day history of increasing shortness of breath, cough, wheeze. she was admitted and treated for Acute Asthma Exacerbation with IV Steroid, regular bronchodilator Nebs. She has showed improvement in her symptoms, remained afebrile, hemodynamicaly Stable, without respiratory compromise, saturating adequately on room air. She is markedly improved and medically stable for discharge on regular DuoNebs, Prednisone for an additional 4 days with PCP follow up and Pulm referral on discharge for PFTs for possible underlying COPD. CXR - no acute cardiopulmonary findings. 1. Acute Asthma Exacerbation - much improved SpO2 92-93% RA Regular Bronchodilator Nebs, transition IV Methylpred to Prednisone Respiratory status stable. COVID PCR negative For PCP follow up and referral to Pulm on discharge for PFTs and optimization of medications. 2. Tobacco Use - cessation counselling done on admission. Nicotine patch prescribed. 3. Elevated LFTs - fatty liver/hepatomegaly on Abdominal US LFTs improved Acute Hepatitis Panel negative 4. Anxiety/Depression - Continue Bupropion, Olanzapine (refused during in- patient stay, claims compliance prior to hospitalization) 5. Hypomagnesemia - recurrent, repleted. Repeat Mg level next week. Medically intact and hemodynamically stable for discharge on DuoNebs, Prednisone. Condition: Good - Instructions Disposition: HOME - Home Medications Comprehensive Discharge Medication List: Ambulatory Orders Albuterol Sulfate Inhaler - [Ventolin Hfa Inhaler -] 2 inh PO Q6H 11/04/19 Budesonide/Formoterol Fumarate [Budesonide-Formoterol 160-4.5] 2 inh IH BID 11/04/19 Bupropion HCl [Bupropion Xl] 150 mg PO DAILY 11/04/19 Bupropion HCl [Bupropion Xl] 300 mg PO DAILY 11/04/19 Nicotine [Nicotine Patch 21 mg/24 hr] 1 each TD DAILY 11/04/19 Olanzapine 15 mg PO DAILY 11/04/19 This patient is new to me today: No Emergency Visit: Yes ED Registration Date: 11/03/19 Care time: The patient presented to the Emergency Department on the above date and was hospitalized for further evaluation of their emergent condition. Critical Care patient: No - Discharge Referral Referred to [facility] Med [facility] No
[2019-11-07] MEDS ORDERED: predniSONE 20 MG TABLET (UD) PO ONE (11:30)
[2019-11-07 11:32] VITALS: BP 124/69; PULSE 93; TEMP 98.9
[2019-11-07] MEDS ORDERED: MAGNESIUM SULFATE 4GM/100CC IN STERILE WATER IVPB ONE (12:00)
[2019-11-08] MEDS ORDERED: predniSONE 20 MG TABLET (UD) PO SCH (10:00)
== END 2019-11-07 18:19 | disposition home or self-care (01) | DRG 141 ==
LOC: JER 18:25 → JERBED 21:57 → J8W 11-04 20:23
PROVIDERS: ADMIT Hospitalist
DX: J45.41 Moderate persistent asthma with (acute) exacerbation (principal); E83.42 Hypomagnesemia; R16.0 Hepatomegaly, not elsewhere classified; F17.210 Nicotine dependence, cigarettes, uncomplicated; R06.82 Tachypnea, not elsewhere classified; R00.0 Tachycardia, unspecified; F41.8 Other specified anxiety disorders; R74.0 Nonspecific elevation of levels of transaminase and lactic acid dehydrogenase [LDH]; K76.0 Fatty (change of) liver, not elsewhere classified
CPT/HCPCS: 36415; 71046-TC-FY; 76705-TC; 80053; 80074; 83735; 84100; 84703; 85025; 93005; 93010; 93970-TC; 94640; 99285-25; U0003

== ENCOUNTER 2023-02-04 14:10 | Emergency (ER) | payer OTHER ==
[2023-02-04] MEDS ORDERED: ACETAMINOPHEN 1000 MG/100 ML BAG IVPB ONE (14:56)
[2023-02-04] MEDS ORDERED: FAMOTIDINE 20 MG/50 ML IVPB 20 MG/50 ML MG IVPB ONE ×2 (14:56→16:02)
[2023-02-04] MEDS ORDERED: ONDANSETRON 4 MG/2 ML VIAL IVPUSH ONE (14:56)
[2023-02-04] MEDS ORDERED: SODIUM CHLORIDE 1,000 ML IV STA (14:56)
[2023-02-04] MEDS ORDERED: ALBUTEROL SO4 2.5/IPRATROPIUM 0.5 INH SOL 3 ML VIAL.NEB. NEB ONE ×4 (14:57→19:04)
[2023-02-04] MEDS ORDERED: KETOROLAC TROMETHAMINE 30 MG/1 ML VIAL IVPUSH ONE (15:58)
[2023-02-04] MEDS ORDERED: ACETAMINOPHEN INJECTION 100 ML IVPB ONE (16:01)
[2023-02-04] MEDS ORDERED: ONDANSETRON 4 MG/2 ML VIAL ONE (16:01)
[2023-02-04 16:15] VITALS: BP 95/67; PULSE 105; RESP 18; TEMP 99.2; BMI 31.7
[2023-02-04 16:35] LABS: BASO % 0.8 % (0-2.0); EOS % 0.3 % (0-4.5); HEMATOCRIT 42.9 % (32.4-45.2); HEMOGLOBIN 14.3 GM/dL (10.7-15.3); LYMPH % 31.8 % (8-40); MCH 28.4 pg (25.7-33.7); MCHC 33.4 g/dl (32.0-36.0); MEAN CELL VOLUME 85.2 fl (80-96); MEAN PLT VOLUME 9.7 fl (7.5-11.1); MONO % 17.2 % (3.8-10.2); NEUT % 49.9 % (42.8-82.8); PLATELET COUNT 146 10^3/uL (134-434); RBC 5.03 M/mm3 (3.60-5.2); RDW 14.1 % (11.6-15.6); WHITE BLOOD COUNT 3.5 K/mm3 (4.0-10.0)
[2023-02-04 16:55] LABS: POTASSIUM 3.7 mmol/L (3.5-5.1)
[2023-02-04 16:57] LABS: ALBUMIN 3.2 g/dl (3.4-5.0); BLOOD UREA NITROGEN 20.1 mg/dL (7-18); CALCIUM 8.5 mg/dL (8.5-10.1); MAGNESIUM 1.2 mg/dL (1.8-2.4)
[2023-02-04 17:00] LABS: PHOSPHOROUS 3.5 mg/dL (2.5-4.9)
[2023-02-04 17:02] LABS: BILIRUBIN,TOTAL 0.2 mg/dL (0.2-1); TOT PROT 6.8 g/dl (6.4-8.2)
[2023-02-04] MEDS ORDERED: methylPREDNISolone NA SUCC 125 MG/2 ML VIAL IVPUSH ONE (17:05)
[2023-02-04] MEDS ORDERED: MAGNESIUM SULFATE IN WATER 2 GM/50 ML IVPB IVPB ONE ×2 (17:06→18:08)
[2023-02-04] MEDS ORDERED: methylPREDNISolone NA SUCC 125 MG/2 ML VIAL ONE (18:08)
[2023-02-04] MEDS ORDERED: KETOROLAC TROMETHAMINE 30 MG/1 ML VIAL ONE (18:08)
[2023-02-04] MEDS: ALBUTEROL SO4 2.5/IPRATROPIUM 0.5 INH SOL 3 ML VIAL.NEB. NEB SCH ×3 (18:47→19:01)
== END 2023-02-04 19:50 | disposition home or self-care (01) ==
LOC: JER 14:10
PROC: 3E033GC Introduction of Other Therapeutic Substance into Peripheral Vein, Percutaneous Approach (ICD-10-PCS; principal; 2023-02-04)
PROC: 3E033GC Introduction of Other Therapeutic Substance into Peripheral Vein, Percutaneous Approach (ICD-10-PCS; 2023-02-04)
PROC: 3E033GC Introduction of Other Therapeutic Substance into Peripheral Vein, Percutaneous Approach (ICD-10-PCS; 2023-02-04)
PROC: 3E033GC Introduction of Other Therapeutic Substance into Peripheral Vein, Percutaneous Approach (ICD-10-PCS; 2023-02-04)
PROC: 3E033GC Introduction of Other Therapeutic Substance into Peripheral Vein, Percutaneous Approach (ICD-10-PCS; 2023-02-04)
PROC: 3E033GC Introduction of Other Therapeutic Substance into Peripheral Vein, Percutaneous Approach (ICD-10-PCS; 2023-02-04)
PROC: 3E0F7GC Introduction of Other Therapeutic Substance into Respiratory Tract, Via Natural or Artificial Opening (ICD-10-PCS; 2023-02-04)
PROC: 3E0F7GC Introduction of Other Therapeutic Substance into Respiratory Tract, Via Natural or Artificial Opening (ICD-10-PCS; 2023-02-04)
DX: R06.02 Shortness of breath (principal); R10.13 Epigastric pain; R11.0 Nausea; R19.7 Diarrhea, unspecified; J10.1 Influenza due to other identified influenza virus with other respiratory manifestations; J45.901 Unspecified asthma with (acute) exacerbation; Z20.822 Contact with and (suspected) exposure to COVID-19
CPT/HCPCS: 0241U-QW; 36415; 80053; 83690; 83735; 84100; 84703; 85025; 94640; 96365; 96367; 96375; 99284-25